=== PATIENT | female | born 1985 | race Caucasian/White ===

== ENCOUNTER 2017-01-29 13:46 | Emergency (ER) | payer OTHER ==
[2017-01-29 13:58] VITALS: RESP 18
--- NOTE | 2017-01-29 14:51 | ED ---
General Adult HPI - General Chief complaint: ENT Stated complaint: flu-like symptoms Time Seen by Provider: 01/29/17 14:31 Source: patient, RN notes reviewed Mode of arrival: ambulatory Limitations: no limitations - History of Present Illness Initial comments: This is a 31-year-old female presents with congestion. Patient states she is concerned that she may have the flu. Patient states she felt a little more warm than usual at work today and was concerned that she may be getting sick. Patient denies any measured fevers. Patient denies any headache, cough, shortness of breath, otalgia or sore throat. Patient denies any chance of being . Patient denies any recent chest pain, abdominal pain, nausea/ vomiting/diarrhea, back pain, numbness, tingling, hematuria, or visual changes , or any other complaints. - Related Data Home Medications Medication Instructions Recorded Confirmed Oseltamivir [Tamiflu] 75 mg PO DAILY 02/21/16 02/21/16 Previous Rx's Medication Instructions Recorded Amoxicillin 500 mg PO Q8H #30 capsule 02/21/16 Fluticasone Nasal Lolo [Flonase 1 - 2 spray EA NOSTRIL DAILY #1 01/29/17 Nasal Lolo] bottle Allergies Allergy/AdvReac Type Severity Reaction Status Date / Time No Known Allergies Allergy Verified 02/21/16 07:34 Review of Systems ROS Statement: Those systems with pertinent positive or pertinent negative responses have been documented in the HPI. ROS Other: All systems not noted in ROS Statement are negative. Past Medical History Additional Past Medical History / Comment(s): left eye blurred vision, lower back pain radiating down legs, tingling and pain za wrists and hands History of Any Multi-Drug Resistant Organisms: None Reported Past Surgical History: No Surgical Hx Reported Past Anesthesia/Blood Transfusion Reactions: No Reported Reaction Past Psychological History: Anxiety Smoking Status: Current every day smoker Past Alcohol Use History: Occasional Past Drug Use History: None Reported General Exam - General Exam Comments Initial Comments: General: The patient is awake and alert, in no distress, and does not appear acutely ill. Eye: Pupils are equal, round and reactive to light, extra-ocular movements are intact. No nystagmus. There is normal conjunctiva bilaterally. No signs of icterus. Ears: TMs pink and pearly with intact cone of light bilaterally. Normal external ear canals Nose: Nasal turbinates are erythematous and edematous. No discomfort to palpation of the frontal or maxillary sinuses. Mouth and throat: There are moist mucous membranes and no oral lesions. Neck: Posterior cervical chain lymphadenopathy present. No meningismus. The neck is supple, there is no tenderness or JVD. Cardiovascular: There is a regular rate and rhythm. No murmur, rub or gallop is appreciated. Respiratory: Lungs are clear to auscultation, respirations are non-labored, breath sounds are equal. No wheezes, stridor, rales, or rhonchi. Musculoskeletal: Normal ROM, no tenderness. Strength 5/5. Sensation intact. Radial pulses equal bilaterally 2+. Neurological: A&O x 3. CN II-XII intact, There are no obvious motor or sensory deficits. Coordination appears grossly intact. Speech is normal. Skin: Skin is warm and dry and no rashes or lesions are noted. Psychiatric: Cooperative, appropriate mood & affect, normal judgment. Limitations: no limitations Course Vital Signs 01/29/17 01/29/17 13:55 16:30 Temperature 97.8 F 97.9 F Pulse Rate 72 70 Respiratory 18 18 Rate Blood Pressure 104/67 102/66 O2 Sat by Pulse 96 96 Oximetry Medical Decision Making - Medical Decision Making This is a 31-year-old female who presents with congestion that started today. On physical exam patient is well-appearing and afebrile in the EC. Lungs are clear to auscultation bilaterally. Nasal turbinates are erythematous and edematous bilaterally. Influenza was checked and came back negative. I discussed sinus congestion and upper respiratory infection with the patient. I discussed [id number] decongestants along with Flonase nasal spray. I discussed the patient should drink plenty of fluids. I discussed return parameters.Discussed that patient should follow up with PCP in one to 2 days or return to the EC for any worsening symptoms or for any further concerns. Patient was receptive to this plan and patient will be discharged home. I discussed this case with attending physician Dr. Jin who agrees the plan as stated above. - Lab Data Lab Results 01/29/17 Range/Units 15:15 Influenza Type A RNA Not Detected (Not Detectd) Influenza Type B (PCR) Not Detected (Not Detectd) Disposition Clinical Impression: Nasal congestion Disposition: HOME SELF-CARE Condition: Good Instructions: Sinusitis (ED) Additional Instructions: Please use [id number] decongestants along with Flonase nasal spray to help with symptom relief. Benadryl or Claritin may also help relieve symptoms. Please use Tylenol and Motrin for any pain or fever symptoms. Please be sure to drink plenty of fluids. Please use medication as discussed. Please follow- up with family doctor in the next 2 days of symptoms have not improved. Please return to emergency room if the symptoms increase or worsen or for any other concerns. Prescriptions: Fluticasone Nasal Lolo [Flonase Nasal Lolo] 1 - 2 spray EA NOSTRIL DAILY #1 bottle Referrals: Stefany Caldera MD [Primary Care Provider] - 1-2 days Time of Disposition: 16:16
[2017-01-29 16:35] VITALS: BP 102/66; PULSE 70; TEMP 97.9
== END 2017-01-29 16:30 | disposition home or self-care (01) ==
LOC: EC 13:46
DX: R09.81 Nasal congestion (principal); F17.200 Nicotine dependence, unspecified, uncomplicated
CPT/HCPCS: 87502; 99283

== ENCOUNTER 2017-08-18 14:28 | Emergency (ER) | payer OTHER ==
[2017-08-18 14:32] VITALS: RESP 20; TEMP 98
[2017-08-18] MEDS ORDERED: diphenhydrAMINE 50 MG/ML 1 ML VIAL IVP STA (14:49)
[2017-08-18] MEDS ORDERED: methylPREDNISolone SOD SUCCI 125 MG/2 ML VIAL IV STA (14:49)
--- NOTE | 2017-08-18 15:01 | ED ---
General Adult HPI - General Chief complaint: Allergic Reaction Stated complaint: Allergic Reaction Time Seen by Provider: 08/18/17 14:40 Source: patient, RN notes reviewed, old records reviewed Mode of arrival: ambulatory Limitations: no limitations - History of Present Illness Initial comments: This is a 34-year-old female in the ER for evaluation. The patient is here for evaluation regarding rash. Patient had exposure to new drug today. No prior history of ALLERGIC reaction. No history of anaphylaxis. No shortness of breath no difficulty breathing. Severe diffuse urticarial rash itchy rash, started just prior to arrival. Patient was given injection today for back pain believes the drug was Toradol - Related Data Home Medications Medication Instructions Recorded Confirmed No Known Home Medications [No 08/18/17 08/18/17 Known Home Medications] Allergies Allergy/AdvReac Type Severity Reaction Status Date / Time tramadol Allergy Rash/Hives Verified 08/18/17 14:42 Review of Systems ROS Statement: Those systems with pertinent positive or pertinent negative responses have been documented in the HPI. ROS Other: All systems not noted in ROS Statement are negative. Past Medical History Additional Past Medical History / Comment(s): left eye blurred vision, lower back pain radiating down legs, tingling and pain za wrists and hands History of Any Multi-Drug Resistant Organisms: None Reported Past Surgical History: No Surgical Hx Reported Past Anesthesia/Blood Transfusion Reactions: No Reported Reaction Past Psychological History: Anxiety Smoking Status: Current every day smoker Past Alcohol Use History: Occasional Past Drug Use History: None Reported General Exam Limitations: no limitations General appearance: alert, in no apparent distress Head exam: Present: atraumatic, normocephalic, normal inspection Eye exam: Present: normal appearance, PERRL, EOMI. Absent: scleral icterus, conjunctival injection, periorbital swelling ENT exam: Present: normal exam, mucous membranes moist Neck exam: Present: normal inspection. Absent: tenderness, meningismus, lymphadenopathy Respiratory exam: Present: normal lung sounds bilaterally. Absent: respiratory distress, wheezes, rales, rhonchi, stridor Cardiovascular Exam: Present: regular rate, normal rhythm, tachycardia, normal heart sounds. Absent: systolic murmur, diastolic murmur, rubs, gallop, clicks GI/Abdominal exam: Present: soft, normal bowel sounds. Absent: distended, tenderness, guarding, rebound, rigid Extremities exam: Present: normal inspection, full ROM, normal capillary refill. Absent: tenderness, pedal edema, joint swelling, calf tenderness Back exam: Present: normal inspection Neurological exam: Present: alert, oriented X3, CN II-XII intact Psychiatric exam: Present: normal affect, normal mood Skin exam: Present: warm, dry, intact, normal color, urticaria. Absent: rash Course Vital Signs 08/18/17 14:28 Temperature 98 F Pulse Rate 115 H Respiratory 20 Rate Blood Pressure 122/75 O2 Sat by Pulse 97 Oximetry - Reevaluation(s) Reevaluation #1: 08/18/17 15:00 Symptoms are much resolved Medical Decision Making - Medical Decision Making 3 female ER for evaluation. Patient presents today regarding ALLERGIC reaction , patient presents with hives in relation to injection that she was seen earlier today for some issues with back pain that she has. Patient has no shortness of breath, no swelling of the throat or neck, no swelling of tongue. Patient can be discharged home with hives are much improved at this point Disposition Clinical Impression: Allergic reaction, Adverse reaction to drug Disposition: HOME SELF-CARE Instructions: Urticaria (ED) Referrals: Stefany Caldera MD [Primary Care Provider] - 1-2 days
[2017-08-18] MEDS ORDERED: EPINEPHrine 1 MG/ML 1 ML AMP SQ ONE (15:04)
[2017-08-18] MEDS ORDERED: FAMOTIDINE 20 MG/2 ML VIAL IV STA (15:15)
[2017-08-18] MEDS ORDERED: SODIUM CHLORIDE 0.9% 1,000 ML IV ONE (15:53)
[2017-08-18 16:36] VITALS: BP 107/56; PULSE 77
[2017-08-19] MEDS ORDERED: FAMOTIDINE 20 MG/2 ML VIAL IV SCH (09:00)
== END 2017-08-18 16:41 | disposition home or self-care (01) ==
LOC: EC 14:28
DX: L50.9 Urticaria, unspecified (principal); T39.8X5A Adverse effect of other nonopioid analgesics and antipyretics, not elsewhere classified, initial encounter; R00.0 Tachycardia, unspecified; F17.200 Nicotine dependence, unspecified, uncomplicated; Z88.5 Allergy status to narcotic agent
CPT/HCPCS: 99283 ×2; 96374 ×2; 96375 ×3; 96361 ×2; 96372 ×2; J0171; J1200; J2930

== ENCOUNTER 2018-01-25 09:40 | Emergency (ER) | payer OTHER ==
[2018-01-25 10:00] VITALS: TEMP 98.2
[2018-01-25] MEDS ORDERED: methylPREDNISolone SOD SUCCI 125 MG/2 ML VIAL IM ONE (11:01)
--- NOTE | 2018-01-25 11:05 | ED ---
Skin/Abscess/FB HPI - General Chief complaint: Skin/Abscess/Foreign Body Stated complaint: Allergic reaction Time Seen by Provider: 01/25/18 10:22 Source: patient, RN notes reviewed, old records reviewed Mode of arrival: ambulatory Limitations: no limitations - History of Present Illness Initial comments: This patient is a 33-year-old female presents emergency Department with a chief complaint of urticaria. She reports that she's been having this intermittently for the past 3 months. She does not know exactly what caused it. Patient states that she's had no chest range throat swelling. Denies any shortness of breath. She states that she cannot figure out exactly what causing this. She has been on steroids by her PCP. She states that she had taken those and finish them. She states that this morning it became worse than it had been in the past. She states that on her arms and legs. - Related Data Home Medications Medication Instructions Recorded Confirmed diphenhydrAMINE [Benadryl] 25 mg PO QID PRN 01/25/18 01/25/18 methylPREDNISolone [Medrol Dose See Taper PO DIRECTED 01/25/18 01/25/18 Pack] Previous Rx's Medication Instructions Recorded Famotidine [Pepcid] 20 mg PO BID #30 tablet 01/25/18 predniSONE 10 mg PO DAILY #30 tab 01/25/18 Allergies Allergy/AdvReac Type Severity Reaction Status Date / Time ketorolac [From Toradol] Allergy Rash/Hives Verified 01/25/18 10:54 tramadol Allergy Rash/Hives Verified 01/25/18 10:54 Review of Systems ROS Statement: Those systems with pertinent positive or pertinent negative responses have been documented in the HPI. ROS Other: All systems not noted in ROS Statement are negative. Past Medical History Additional Past Medical History / Comment(s): left eye blurred vision, lower back pain radiating down legs, tingling and pain za wrists and hands, hives History of Any Multi-Drug Resistant Organisms: None Reported Past Surgical History: No Surgical Hx Reported Past Anesthesia/Blood Transfusion Reactions: No Reported Reaction Past Psychological History: Anxiety Smoking Status: Current every day smoker Past Alcohol Use History: Occasional Past Drug Use History: None Reported General Exam - General Exam Comments Initial Comments: Appearing 32-year-old female. No distress. Limitations: no limitations General appearance: alert, in no apparent distress Head exam: Present: atraumatic, normocephalic, normal inspection Eye exam: Present: normal appearance, PERRL, EOMI. Absent: scleral icterus, conjunctival injection, periorbital swelling ENT exam: Present: normal exam, mucous membranes moist Neck exam: Present: normal inspection. Absent: tenderness, meningismus, lymphadenopathy Respiratory exam: Present: normal lung sounds bilaterally. Absent: respiratory distress, wheezes, rales, rhonchi, stridor Cardiovascular Exam: Present: regular rate, normal rhythm, normal heart sounds. Absent: systolic murmur, diastolic murmur, rubs, gallop, clicks GI/Abdominal exam: Present: soft, normal bowel sounds. Absent: distended, tenderness, guarding, rebound, rigid Extremities exam: Present: normal inspection, full ROM, normal capillary refill. Absent: tenderness, pedal edema, joint swelling, calf tenderness Back exam: Present: normal inspection Neurological exam: Present: alert, oriented X3, CN II-XII intact Psychiatric exam: Present: normal affect, normal mood Skin exam: Present: warm, dry, intact, normal color, rash (Diffuse urticaria over her legs arms and abdomen.) Course Vital Signs 01/25/18 09:58 Temperature 98.2 F Pulse Rate 103 H Respiratory 16 Rate Blood Pressure 118/67 O2 Sat by Pulse 100 Oximetry Medical Decision Making - Medical Decision Making 32-year-old female presents presents that she bled of urticaria. She does have 24-year-old arms legs and lower abdomen. She finished steroids from her PCP. Discussed this I will put her on ALLERGY reaction regimen with Pepcid Benadryl steroids. Discussed that she needs follow-up with an cnc machine programmer to figure out exactly what is causing her actions. Discussed return parameters. All questions answered and return parameters were discussed. Disposition Clinical Impression: Urticaria Disposition: HOME SELF-CARE Condition: Good Instructions: Urticaria (ED) Additional Instructions: and advised to rest, follow-up with legal billing specialist. Return to emergency department if any alarming signs or symptoms occur. Take the steroids and medication as prescribed. Prescriptions: Famotidine [Pepcid] 20 mg PO BID #30 tablet predniSONE 10 mg PO DAILY #30 tab Referrals: Stefany Caldera MD [Primary Care Provider] - 1-2 days Bobbi Caceres DO [REFERRING] - 1-2 days Time of Disposition: 11:02
[2018-01-25 11:23] VITALS: BP 112/67; PULSE 73; RESP 18
== END 2018-01-25 11:20 | disposition home or self-care (01) ==
LOC: EC 09:40
DX: L50.9 Urticaria, unspecified (principal); F17.200 Nicotine dependence, unspecified, uncomplicated; Z79.52 Long term (current) use of systemic steroids; Z88.6 Allergy status to analgesic agent
CPT/HCPCS: 96372; 99283

== ENCOUNTER 2018-05-21 06:33 | Emergency (ER) | payer OTHER ==
[2018-05-21 06:39] VITALS: BP 122/83; PULSE 70; RESP 16; TEMP 98.3
--- NOTE | 2018-05-21 06:52 | ED ---
Lower Extremity Injury HPI - General Chief Complaint: Extremity Injury, Lower Stated Complaint: ankle injury Time Seen by Provider: 05/21/18 06:46 Source: patient, RN notes reviewed Mode of arrival: ambulatory Limitations: no limitations - History of Present Illness Initial Comments: 32-year-old female presents emergency Department chief complaint of left ankle pain. She states that she had injury at work approximately one month ago when a steel cart rolled into her ankle she did have an abrasion and that this was causing her pain but states that she's had some on-and-off issues ever since. She states that last night at work. Worst states that it was painful to ambulate. She did try compression sock which made symptoms worsen. Patient states that it's around her lateral aspect of her ankle denies any prior fractures or injuries prior to one month ago. - Related Data Home Medications Medication Instructions Recorded Confirmed diphenhydrAMINE [Benadryl] 25 mg PO QID PRN 01/25/18 01/25/18 methylPREDNISolone [Medrol Dose See Taper PO DIRECTED 01/25/18 01/25/18 Pack] Previous Rx's Medication Instructions Recorded Famotidine [Pepcid] 20 mg PO BID #30 tablet 01/25/18 predniSONE 10 mg PO DAILY #30 tab 01/25/18 Ibuprofen [Motrin] 600 mg PO Q8HR PRN #30 tab 05/21/18 Allergies Allergy/AdvReac Type Severity Reaction Status Date / Time ketorolac [From Toradol] Allergy Rash/Hives Verified 05/21/18 06:39 tramadol Allergy Rash/Hives Verified 05/21/18 06:39 Review of Systems ROS Statement: Those systems with pertinent positive or pertinent negative responses have been documented in the HPI. ROS Other: All systems not noted in ROS Statement are negative. Past Medical History Additional Past Medical History / Comment(s): left eye blurred vision, lower back pain radiating down legs, tingling and pain za wrists and hands, hives History of Any Multi-Drug Resistant Organisms: None Reported Past Surgical History: No Surgical Hx Reported Past Anesthesia/Blood Transfusion Reactions: No Reported Reaction Past Psychological History: Anxiety Smoking Status: Current every day smoker Past Alcohol Use History: Occasional Past Drug Use History: None Reported General Exam Limitations: no limitations General appearance: alert, in no apparent distress Head exam: Present: atraumatic, normocephalic, normal inspection Respiratory exam: Present: normal lung sounds bilaterally. Absent: respiratory distress, wheezes, rales, rhonchi, stridor Cardiovascular Exam: Present: regular rate, normal rhythm, normal heart sounds. Absent: systolic murmur, diastolic murmur, rubs, gallop, clicks Extremities exam: Present: other (Left ankle there is moderate tenderness just inferior to the lateral malleolus there is minimal swelling at this aspect ankle and foot is neurovascularly intact there is no foot tenderness no medial malar tenderness no obvious deformity there is old healing wounds noted) Skin exam: Present: warm, dry, intact, normal color. Absent: rash Course Vital Signs 05/21/18 06:36 Temperature 98.3 F Pulse Rate 70 Respiratory 16 Rate Blood Pressure 122/83 O2 Sat by Pulse 100 Oximetry Medical Decision Making - Medical Decision Making 32-year-old female presented emergency from for left ankle pain. Patient did have x-rays which showed no acute fracture. Patient has pain over the ligamentous region of her left ankle patient will be given stirrup Aircast and advised to take ibuprofen as directed. Patient is left ankle sprain return parameters were discussed. Disposition Clinical Impression: Ankle sprain Disposition: HOME SELF-CARE Condition: Stable Instructions: Ankle Sprain (ED) Additional Instructions: Please return to the Emergency Department if symptoms worsen or any other concerns. Prescriptions: Ibuprofen [Motrin] 600 mg PO Q8HR PRN #30 tab PRN Reason: Pain Is patient prescribed a controlled substance at d/c from ED?: No Referrals: Stefany Caldera MD [Primary Care Provider] - 1-2 days Time of Disposition: 07:17
--- NOTE | 2018-05-21 07:18 | XR ---
EXAMINATION TYPE: XR ankle complete LT DATE OF EXAM: 05/21/2018 COMPARISON: NONE HISTORY: 32-year-old female with lateral sided pain TECHNIQUE: 3 views FINDINGS: Ankle mortise is congruent with preservation of the distal tibiofibular overlap. Talar dome is intact . Smooth delineation to the Achilles tendon. Subtalar joint is aligned. No acute fracture, subluxatio n, or dislocation seen. IMPRESSION: No acute osseous abnormality seen.
== END 2018-05-21 07:28 | disposition home or self-care (01) ==
LOC: EC 06:33
DX: S93.402A Sprain of unspecified ligament of left ankle, initial encounter (principal); Z79.51 Long term (current) use of inhaled steroids; Z88.6 Allergy status to analgesic agent; F17.200 Nicotine dependence, unspecified, uncomplicated; W23.0XXA Caught, crushed, jammed, or pinched between moving objects, initial encounter; Y92.69 Other specified industrial and construction area as the place of occurrence of the external cause; Y99.0 Civilian activity done for income or pay
CPT/HCPCS: 29515; 99283

== ENCOUNTER 2018-09-16 07:22 | Emergency (ER) | payer OTHER ==
[2018-09-16 07:29] VITALS: BP 100/61; PULSE 101; RESP 20; TEMP 98.2
[2018-09-16] MEDS ORDERED: HYDROcodone/APAP 5-325MG 1 EACH TAB PO STA (07:46)
[2018-09-16] MEDS ORDERED: ACET/COD 300 MG/30 MG STARTER PACK 6 TAB BTL PO STA (07:46)
--- NOTE | 2018-09-16 07:50 | ED ---
Extremity Problem HPI - General Chief complaint: Extremity Problem,Nontraumatic Stated complaint: thigh pain Time Seen by Provider: 09/16/18 07:33 Source: patient, RN notes reviewed Mode of arrival: ambulatory Limitations: no limitations - History of Present Illness Initial comments: 32-year-old female presents emergency Department chief complaint of left posterior thigh pain. Patient states pain has been persistent for last week or so. Patient states she saw PCP as a pain persisted and she had ultrasound and x -rays which were negative. Patient has no evidence of DVT. Patient states that the pain is better when she fell he rotates her leg which she keeps it straight and not moving. It is exacerbated by when she flexes her knee or she twists and bends. Patient states that she did apply some heat and ice states that he helped and felt better. She saw PCP who placed her on ibuprofen and Robaxin. Patient has not seen orthopedics. Patient denies any bowel bladder incontinence or retention. She does admit to some lumbar back pain at this time because she's been favoring her opposite leg. - Related Data Home Medications Medication Instructions Recorded Confirmed diphenhydrAMINE [Benadryl] 25 mg PO QID PRN 01/25/18 01/25/18 methylPREDNISolone [Medrol Dose See Taper PO DIRECTED 01/25/18 01/25/18 Pack] Previous Rx's Medication Instructions Recorded Famotidine [Pepcid] 20 mg PO BID #30 tablet 01/25/18 predniSONE 10 mg PO DAILY #30 tab 01/25/18 Ibuprofen [Motrin] 600 mg PO Q8HR PRN #30 tab 05/21/18 Allergies Allergy/AdvReac Type Severity Reaction Status Date / Time ketorolac [From Toradol] Allergy Rash/Hives Verified 09/16/18 07:29 tramadol Allergy Rash/Hives Verified 09/16/18 07:29 Review of Systems ROS Statement: Those systems with pertinent positive or pertinent negative responses have been documented in the HPI. ROS Other: All systems not noted in ROS Statement are negative. Past Medical History Additional Past Medical History / Comment(s): left eye blurred vision, lower back pain radiating down legs, tingling and pain za wrists and hands, hives History of Any Multi-Drug Resistant Organisms: None Reported Past Surgical History: No Surgical Hx Reported Past Anesthesia/Blood Transfusion Reactions: No Reported Reaction Past Psychological History: Anxiety Smoking Status: Current every day smoker Past Alcohol Use History: Occasional Past Drug Use History: None Reported General Exam Limitations: no limitations General appearance: alert, in no apparent distress Head exam: Present: atraumatic, normocephalic, normal inspection Respiratory exam: Present: normal lung sounds bilaterally. Absent: respiratory distress, wheezes, rales, rhonchi, stridor Cardiovascular Exam: Present: regular rate, normal rhythm, normal heart sounds. Absent: systolic murmur, diastolic murmur, rubs, gallop, clicks GI/Abdominal exam: Present: soft, normal bowel sounds. Absent: distended, tenderness, guarding, rebound, rigid Extremities exam: Present: other (Tenderness to the left thigh, pain with hamstring use including knee flexion, leg is neurovascularly intact with equal pedal pulses equal color equal warmth there is no swelling no ecchymosis. Patient has no localized tenderness to left hip strength is equal bilaterally) Back exam: Present: normal inspection, full ROM. Absent: tenderness, paraspinal tenderness, vertebral tenderness Skin exam: Present: warm, dry, intact, normal color. Absent: rash Course Vital Signs 09/16/18 07:26 Temperature 98.2 F Pulse Rate 101 H Respiratory 20 Rate Blood Pressure 100/61 O2 Sat by Pulse 98 Oximetry Medical Decision Making - Medical Decision Making 32-year-old female presented emergency from for left thigh pain. Patient has a hamstring strain. She has had recent ultrasound was negative for acute DVT. Patient has normal pulses no concern for arterial occlusion. Patient has no signs of infection there is no skin changes. Patient may have some underlying lumbar radiculopathy secondary to her change in gait. Patient is advised follow -up with orthopedics for possible MRI and physical therapy. Disposition Clinical Impression: Left hamstring muscle strain Disposition: HOME SELF-CARE Condition: Stable Instructions: Hamstring Injury (ED), Hamstring Exercises (ED) Additional Instructions: Please return to the Emergency Department if symptoms worsen or any other concerns. Is patient prescribed a controlled substance at d/c from ED?: No Referrals: Stefany Caldera MD [Primary Care Provider] - 1-2 days Tucker Freeman DO [Doctor of Osteopathic Medicine] - 1-2 days Time of Disposition: 07:49
== END 2018-09-16 08:04 | disposition home or self-care (01) ==
LOC: EC 07:22
DX: S76.812A Strain of other specified muscles, fascia and tendons at thigh level, left thigh, initial encounter (principal); M54.5 Low back pain; F17.200 Nicotine dependence, unspecified, uncomplicated; Z79.51 Long term (current) use of inhaled steroids; Z88.5 Allergy status to narcotic agent; Z88.6 Allergy status to analgesic agent
CPT/HCPCS: 99283

== ENCOUNTER 2019-07-18 17:41 | Emergency (ER) | payer OTHER ==
[2019-07-18 17:50] VITALS: BP 135/85; RESP 18; TEMP 98.9
--- NOTE | 2019-07-18 18:44 | ED ---
General Adult HPI - General Chief complaint: Extremity Injury, Lower Stated complaint: Leg injury Time Seen by Provider: 07/18/19 17:59 Source: patient, RN notes reviewed, old records reviewed Mode of arrival: ambulatory Limitations: no limitations - History of Present Illness Initial comments: 33-year-old female patient in ED for evaluation of fall and hip pain. Patient reports she was dragging her house, fell over a carpet on her right hip. Patient wishes pain in her right hip, right femur, tibia/fibular region. Patient ambulatory without difficulty. Denies any trauma to head or neck. Patient states that she cannot be . Denies other complaints. Systemic: Pt denies fatigue, fever/chills, rash. Pt denies weakness, night sweats, weight loss. Neuro: Pt denies headache, visual disturbances, syncope or pre-syncope. HEENT: Pt denies ocular discharge or irritation, otalgia, rhinorrhea, pharyngitis or notable lymphadenopathy. Cardiopulmonary: Pt denies chest pain, SOB, heart palpitations, dyspnea on exertion. Abdominal/GI: Pt denies abdominal pain, n/v/d. : Pt denies dysuria, burning w/ urination, frequency/urgency. Denies new onset urinary or bowel incontinence. MSK: Pt denies loss of strength or function in extremities. Neuro: Pt denies new onset weakness, paresthesias. - Related Data Home Medications Medication Instructions Recorded Confirmed No Known Home Medications 07/18/19 07/18/19 Allergies Allergy/AdvReac Type Severity Reaction Status Date / Time ketorolac [From Toradol] Allergy Rash/Hives Verified 07/18/19 18:35 tramadol Allergy Rash/Hives Verified 07/18/19 18:35 Review of Systems ROS Statement: Those systems with pertinent positive or pertinent negative responses have been documented in the HPI. ROS Other: All systems not noted in ROS Statement are negative. Past Medical History Additional Past Medical History / Comment(s): left eye blurred vision, lower back pain radiating down legs, tingling and pain za wrists and hands, hives History of Any Multi-Drug Resistant Organisms: None Reported Past Surgical History: No Surgical Hx Reported Past Anesthesia/Blood Transfusion Reactions: No Reported Reaction Past Psychological History: Anxiety Smoking Status: Current every day smoker Past Alcohol Use History: Occasional Past Drug Use History: None Reported General Exam - General Exam Comments Initial Comments: Constitutional: NAD, AOX3, Pt has pleasant affect. HEENT: NC/AT, trachea midline, neck supple, no lymphadenopathy. Posterior pharynx non erythematous, without exudates. External ears appear normal, without discharge. Mucous membranes moist. Eyes PERRLA, EOM intact. There is no scleral icterus. No pallor noted. Cardiopulmonary: RRR, no murmurs, rubs or gallops, no JVD noted. Lungs CTAB in anterior and posterior vieira. No peripheral edema. Abdominal exam: Abdomen soft and non-distended. Abdomen non-tender to palpation in all 4 quadrants. Bowel sounds active in LLQ. No hepatosplenomegaly. No ecchymosis Neuro: CN II-XII grossly intact. No nuchal rigidity. No raccon eyes, no boswell sign, no hemotympanum. No cervical spinal tenderness. MSK: Right anterior tibia/fibula mildly tender to palpation. Distal pulses intact ankle. Ambulatory without difficulty. No posterior calf tenderness bilaterally, homans sign negative bilaterally. Posterior tibialis and radial pulse +2 bilaterally. Sensation intact in upper and lower extremities. Full active ROM in upper and lower extremities, 5/5 stregnth. Limitations: no limitations Course Vital Signs 07/18/19 07/18/19 17:48 18:48 Temperature 98.9 F Pulse Rate 107 H 80 Respiratory 18 Rate Blood Pressure 135/85 O2 Sat by Pulse 95 Oximetry Medical Decision Making - Medical Decision Making 33-year-old female patient in ED for evaluation of fall and hip pain. Patient reports she was dragging her house, fell over a carpet on her right hip. Patient wishes pain in her right hip, right femur, tibia/fibular region. Patient ambulatory without difficulty. Denies any trauma to head or neck. Patient states that she cannot be . Denies other complaints. Pt VSS, afebrile. Physical exam displayed: Right anterior tibia/fibula mildly tender to palpation. Distal pulses intact and equal. Ambulatory without difficulty. Patient was recommended plain films of right lower extremity. Patient declined these that she wants to be discharged. Splint patient who did not rule out any sort of fracture without imaging. Patient was understanding. Patient discharged orthopedic consult if symptoms persist. Case discussed with Dr. Elizabeth. Disposition Clinical Impression: Fall Disposition: HOME SELF-CARE Condition: Stable Instructions (If sedation given, give patient instructions): Fall Prevention (ED) Additional Instructions: Patient to adhere to previously discussed treatment plan and will take medication(s) as directed. Patient to follow up with PCP in 1-2 days. Patient to return to ED if symptoms do not improve. Follow-up with orthopedic consult if symptoms persist. Is patient prescribed a controlled substance at d/c from ED?: No Referrals: Stefany Caldera MD [Primary Care Provider] - 1-2 days Sebastian Hubbard DO [Medical Doctor] - 1-2 days
[2019-07-18 18:49] VITALS: PULSE 80
== END 2019-07-18 18:50 | disposition home or self-care (01) ==
LOC: EC 17:41
DX: M25.551 Pain in right hip (principal); M79.651 Pain in right thigh; M79.661 Pain in right lower leg; F17.200 Nicotine dependence, unspecified, uncomplicated; Z88.5 Allergy status to narcotic agent; Z88.6 Allergy status to analgesic agent; W01.0XXA Fall on same level from slipping, tripping and stumbling without subsequent striking against object, initial encounter; Y93.89 Activity, other specified; Y92.007 Garden or yard of unspecified non-institutional (private) residence as the place of occurrence of the external cause; Z53.20 Procedure and treatment not carried out because of patient's decision for unspecified reasons
CPT/HCPCS: 99283

== ENCOUNTER 2019-10-22 08:27 | Emergency (ER) | payer OTHER ==
[2019-10-22 08:32] VITALS: BP 132/81; TEMP 99
[2019-10-22] MEDS ORDERED: DEXAMETHASONE ORAL 4 MG/ML VIAL PO ONE (08:53)
[2019-10-22] MEDS ORDERED: IBUPROFEN 600 MG TAB PO STA (08:53)
--- NOTE | 2019-10-22 08:59 | ED ---
Fever HPI - General Chief Complaint: Fever Stated Complaint: fever Time Seen by Provider: 10/22/19 08:33 Source: patient, RN notes reviewed, old records reviewed Mode of arrival: ambulatory Limitations: no limitations - History of Present Illness Initial Comments: Patient is a 33-year-old female who presents with a dry cough, fevers chills, body aches and headache. Patient reports that she was diagnosed with influenza- type syndrome yesterday at [facility]. She was started on Tamiflu. She's been on it for 24 hours. She came in today for concern for continued fever. Patient states that she no productive cough. No nausea or vomiting or abdominal pain. Patient did take some Tylenol this morning, last dose of Motrin was last night. Patient denies any history of sick contacts. - Related Data Home Medications Medication Instructions Recorded Confirmed No Known Home Medications 07/18/19 07/18/19 Allergies Allergy/AdvReac Type Severity Reaction Status Date / Time ketorolac [From Toradol] Allergy Rash/Hives Verified 10/22/19 08:31 tramadol Allergy Rash/Hives Verified 10/22/19 08:31 Review of Systems ROS Statement: Those systems with pertinent positive or pertinent negative responses have been documented in the HPI. ROS Other: All systems not noted in ROS Statement are negative. Past Medical History Additional Past Medical History / Comment(s): left eye blurred vision, lower back pain radiating down legs, tingling and pain za wrists and hands, hives History of Any Multi-Drug Resistant Organisms: None Reported Past Surgical History: No Surgical Hx Reported Past Anesthesia/Blood Transfusion Reactions: No Reported Reaction Past Psychological History: Anxiety Smoking Status: Current every day smoker Past Alcohol Use History: Occasional Past Drug Use History: None Reported General Exam - General Exam Comments Initial Comments: 33 year old female, no distress. Limitations: no limitations General appearance: alert, in no apparent distress Head exam: Present: atraumatic, normocephalic, normal inspection Eye exam: Present: normal appearance, PERRL, EOMI. Absent: scleral icterus, conjunctival injection, periorbital swelling ENT exam: Present: normal exam, mucous membranes moist, other (normal oropharynx. No sinus tenderness. ) Neck exam: Present: normal inspection. Absent: tenderness, meningismus, lymphadenopathy Respiratory exam: Present: normal lung sounds bilaterally, other (clear lung sounds, no cough. ). Absent: respiratory distress, wheezes, rales, rhonchi, stridor Cardiovascular Exam: Present: regular rate, normal rhythm, normal heart sounds. Absent: systolic murmur, diastolic murmur, rubs, gallop, clicks GI/Abdominal exam: Present: soft, normal bowel sounds. Absent: distended, tenderness, guarding, rebound, rigid Extremities exam: Present: normal inspection Back exam: Present: normal inspection Neurological exam: Present: alert, oriented X3, CN II-XII intact Psychiatric exam: Present: normal affect, normal mood Skin exam: Present: warm, dry, intact, normal color. Absent: rash Course Vital Signs 10/22/19 08:29 Temperature 99.0 F Pulse Rate 84 Respiratory 18 Rate Blood Pressure 132/81 O2 Sat by Pulse 98 Oximetry Medical Decision Making - Medical Decision Making 33-year-old female presents today with concerns for persistent fever 1 day after being diagnosed with influenza. Patient started to have symptoms on Monday. This would be day 3 of body aches and fevers intermittently. She was started on Tamiflu by [facility] yesterday. She was concerned she had a fever of 99 and 100.3 it home. I discussed the Patient needs to be altering Motrin and Tylenol the Patient suffering from a viral syndrome. I discussed that she would have a productive cough or any other complaints to be concerned for source of bacterial infection that would be concerning for further testing. She states that she does not want any x-rays or further testing at this time. I discussed with the treat the Patient with dose of Motrin, one dose of Decadron help with her symptoms of cough. Discussed the Patient needs to be taking [id number] treatment medications such as Mucinex DM. I discussed return parameters. Patient was agreeable to treatment plan will comply. Disposition Clinical Impression: Viral syndrome Disposition: HOME SELF-CARE Condition: Good Instructions (If sedation given, give patient instructions): Fever in Adults (ED) Additional Instructions: Alternating between Motrin and Tylenol, take decongestion medication and continue tamiflu. Follow-up with your primary care physician. Return to emergency department if any alarming signs or symptoms occur. Is patient prescribed a controlled substance at d/c from ED?: No Referrals: Stefany Caldera MD [Primary Care Provider] - 1-2 days Time of Disposition: 08:58
[2019-10-22 09:09] VITALS: PULSE 85; RESP 16
== END 2019-10-22 09:10 | disposition home or self-care (01) ==
LOC: EC 08:27
DX: B34.9 Viral infection, unspecified (principal); F17.200 Nicotine dependence, unspecified, uncomplicated; Z88.5 Allergy status to narcotic agent; Z88.6 Allergy status to analgesic agent
CPT/HCPCS: 99283; J8540

== ENCOUNTER → 2020-04-09 | Outpatient (CLI) | payer OTHER ==
--- NOTE | 2020-04-09 20:42 | US ---
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 TECHNIQUE: Multiple sonographic images of the thyroid gland are obtained. FINDINGS: GLAND SIZE: Right Lobe: 4.8 x 1.6 x 2.3 cm Overall Parenchyma: heterogenous Left Lobe: 5.3 x 1.3 x 1.9 cm Overall Parenchyma: heterogeneous Isthmus Thickness: 0.4 cm NODULES RIGHT: # of nodules measured on right: 0 LEFT: # of nodules measured on left: 0 ISTHMUS: # of nodules measured in the isthmus: 0 Bilateral neck scanned, no evidence of lymphadenopathy. IMPRESSION: Borderline to mild thyromegaly with heterogeneous glandular parenchyma. Findings could represent diff use thyroiditis or goiter.
== END | disposition home or self-care (01) ==
LOC: RADUSWWP 16:19
PROVIDERS: ATTEND Family Medicine
DX: E01.0 Iodine-deficiency related diffuse (endemic) goiter (principal); R79.89 Other specified abnormal findings of blood chemistry
CPT/HCPCS: 76536

== ENCOUNTER → 2020-07-14 | Outpatient (CLI) | payer OTHER ==
--- NOTE | 2020-07-14 09:53 | XR ---
EXAMINATION TYPE: XR lumbar spine 2 or 3V DATE OF EXAM: 07/14/2020 CLINICAL HISTORY: S39.012A. Hurt back at work lifting. Pain in lower back. TECHNIQUE: Frontal and lateral views of the lumbar spine COMPARISON: Lumbar radiograph 07/19/2016 FINDINGS: There are 5 lumbar type vertebral bodies identified. The lumbar spine shows satisfactory alignment without evidence of acute fracture or dislocation. Vertebral body heights and disk space he ights are within normal limits. The overlying soft tissue appears unremarkable. IMPRESSION: No acute fracture or dislocation is seen in the lumbar spine.
== END | disposition home or self-care (01) ==
LOC: RADXRMAIN 09:06
PROVIDERS: ATTEND Emergency Medicine
DX: S39.012A Strain of muscle, fascia and tendon of lower back, initial encounter (principal)
CPT/HCPCS: 72100

== ENCOUNTER 2020-07-28 08:13 | Emergency (ER) | payer OTHER ==
[2020-07-28 08:17] VITALS: BP 114/74; PULSE 85; RESP 16; TEMP 97.9
[2020-07-28] MEDS ORDERED: ORPHENADRINE 30 MG/ML 2 ML VIAL IM STA (08:38)
[2020-07-28] MEDS ORDERED: ACET/COD 300 MG/30 MG STARTER PACK 6 TAB BTL PO STA (08:38)
[2020-07-28] MEDS ORDERED: methylPREDNISolone SOD SUCCI 125 MG/2 ML VIAL IM ONE (08:38)
--- NOTE | 2020-07-28 08:46 | ED ---
Back Pain HPI - General Chief Complaint: Back Pain/Injury Stated Complaint: sciatica pain Time Seen by Provider: 07/28/20 08:21 Source: patient, RN notes reviewed, old records reviewed Limitations: no limitations - History of Present Illness Initial Comments: Patient is a 34 year old female who presents to the ER today for evaluation with complaints of sciatic pain shooting down the left leg. She said history of sciatic pain prior. She reports that she has been having this pain off and on for the past week. Pain is reproducible with straight leg and in certain movements. She denies any recent fall or trauma. She does report that she is scheduled to have an MRI. Denies any saddle anesthesias. She denies any abdominal pain fever chills or weight loss. - Related Data Previous Rx's Medication Instructions Recorded Cyclobenzaprine [Flexeril] 10 mg PO TID #12 tab 07/28/20 dexAMETHasone [Dexamethasone] 0.75 mg PO DAILY #12 tab 07/28/20 Allergies Allergy/AdvReac Type Severity Reaction Status Date / Time ketorolac [From Toradol] Allergy Rash/Hives Verified 07/28/20 08:17 tramadol Allergy Rash/Hives Verified 07/28/20 08:17 Review of Systems ROS Statement: Those systems with pertinent positive or pertinent negative responses have been documented in the HPI. ROS Other: All systems not noted in ROS Statement are negative. Past Medical History Additional Past Medical History / Comment(s): left eye blurred vision, lower back pain radiating down legs, tingling and pain za wrists and hands, hives History of Any Multi-Drug Resistant Organisms: None Reported Past Surgical History: No Surgical Hx Reported Past Anesthesia/Blood Transfusion Reactions: No Reported Reaction Past Psychological History: Anxiety Smoking Status: Current every day smoker Past Alcohol Use History: Occasional Past Drug Use History: None Reported General Exam - General Exam Comments Initial Comments: 34 rolled female. Alert and oriented. No significant distress. Limitations: no limitations General appearance: alert, in no apparent distress Head exam: Present: atraumatic, normocephalic, normal inspection Eye exam: Present: normal appearance, PERRL, EOMI. Absent: scleral icterus, conjunctival injection, periorbital swelling ENT exam: Present: normal exam, mucous membranes moist Neck exam: Present: normal inspection Respiratory exam: Present: normal lung sounds bilaterally. Absent: respiratory distress, wheezes, rales, rhonchi, stridor Cardiovascular Exam: Present: regular rate, normal rhythm, normal heart sounds. Absent: systolic murmur, diastolic murmur, rubs, gallop, clicks GI/Abdominal exam: Present: soft, normal bowel sounds. Absent: distended, tenderness, guarding, rebound, rigid Extremities exam: Present: normal inspection, full ROM, normal capillary refill. Absent: tenderness, pedal edema, joint swelling, calf tenderness Back exam: Present: normal inspection, tenderness (Lower back tenderness over the left sciatic notch. No rash. Positive straight leg test on the left. Normal pulses of dorsalis pedis and posterior tibial are 2+ bilaterally.) Neurological exam: Present: alert, oriented X3, CN II-XII intact Psychiatric exam: Present: normal affect, normal mood Skin exam: Present: warm, dry, intact, normal color. Absent: rash Course Vital Signs 07/28/20 08:14 Temperature 97.9 F Pulse Rate 85 Respiratory 16 Rate Blood Pressure 114/74 O2 Sat by Pulse 98 Oximetry Medical Decision Making - Medical Decision Making 34-year-old female presents emergency with one week of sciatic distribution of pain. Reproducible with movement. Patient has history of sciatica before. She states she does have upcoming appointment for MRIs. Patient has had no fall or trauma and denies vertigo like symptoms or saddle anesthesia. Patient's been taking [id number] medication for pain and sent here because the pain was not seemed to be managed. At this time she does have some tenderness of sciatic notch. No rashes. Patient is given IM slight Medrol Norflex. Has listed ALLERGY to Toradol tramadol. We'll give the Patient started pack for Tylenol 3. Advised Patient to follow-up with PCP Disposition Clinical Impression: Sciatica of left side Disposition: HOME SELF-CARE Condition: Good Instructions (If sedation given, give patient instructions): Acute Low Back Pain (ED), Sciatica (ED) Additional Instructions: Please use medication as discussed. Please follow up with family doctor if symptoms have not improved over the next two days. Please return to the emergency room if your symptoms increase or worsen or for any other concerns. Prescriptions: dexAMETHasone [Dexamethasone] 0.75 mg PO DAILY #12 tab Cyclobenzaprine [Flexeril] 10 mg PO TID #12 tab Is patient prescribed a controlled substance at d/c from ED?: No Referrals: Stefany Caldera MD [Primary Care Provider] - 1-2 days Time of Disposition: 08:44
== END 2020-07-28 08:58 | disposition home or self-care (01) ==
LOC: EC 08:13
DX: M54.32 Sciatica, left side (principal); F17.200 Nicotine dependence, unspecified, uncomplicated; Z88.6 Allergy status to analgesic agent
CPT/HCPCS: 96372 ×2; 99283; J2360; J2930

== ENCOUNTER 2020-08-18 17:18 | Observation (INO) | payer OTHER ==
[2020-08-18] MEDS ORDERED: HYDROmorphone 0.5 MG/0.5 ML SYRINGE IM STA (17:45)
[2020-08-18] MEDS ORDERED: HYDROmorphone 0.5 MG/0.5 ML SYRINGE IVP STA ×2 (17:52→18:40)
--- NOTE | 2020-08-18 17:55 | ED ---
General Adult HPI - General Chief complaint: Back Pain/Injury Stated complaint: back/leg pain Time Seen by Provider: 08/18/20 17:38 Source: patient, RN notes reviewed Mode of arrival: ambulatory Limitations: no limitations - History of Present Illness Initial comments: 34-year-old female presents to the emergency room for left leg pain. Patient reports this has been ongoing for 1 month however worsened significantly today. Patient reports that she has had this before about 3 years ago. Patient states it starts in her low back radiates down her left buttock into her left leg. Patient states she has been seeing primary care for this and was supposed to have an MRI ordered however insurance would not approve this. She saw her primary care provider today who recommended she come into the emergency room and requested CT and admission. Patient denies numbness or tingling in the groin and buttock. Denies weakness of the legs. Denies bladder or bowel changes. Patient denies fevers or chills. Patient denies any chance of whatsoe shaan.Patient has no other complaints at this time including shortness of breath, chest pain, abdominal pain, nausea or vomiting, headache, or visual changes. - Related Data Previous Rx's Medication Instructions Recorded Cyclobenzaprine [Flexeril] 10 mg PO TID #12 tab 07/28/20 dexAMETHasone [Dexamethasone] 0.75 mg PO DAILY #12 tab 07/28/20 Allergies Allergy/AdvReac Type Severity Reaction Status Date / Time ketorolac [From Toradol] Allergy Rash/Hives Verified 07/28/20 08:17 tramadol Allergy Rash/Hives Verified 07/28/20 08:17 Review of Systems ROS Statement: Those systems with pertinent positive or pertinent negative responses have been documented in the HPI. ROS Other: All systems not noted in ROS Statement are negative. Past Medical History Additional Past Medical History / Comment(s): left eye blurred vision, lower back pain radiating down legs, tingling and pain za wrists and hands, hives History of Any Multi-Drug Resistant Organisms: None Reported Past Surgical History: No Surgical Hx Reported Past Anesthesia/Blood Transfusion Reactions: No Reported Reaction Past Psychological History: Anxiety Smoking Status: Current every day smoker Past Alcohol Use History: Occasional Past Drug Use History: None Reported General Exam Limitations: no limitations General appearance: alert, in no apparent distress Head exam: Present: atraumatic, normocephalic, normal inspection Eye exam: Present: normal appearance, PERRL, EOMI. Absent: scleral icterus, conjunctival injection, periorbital swelling ENT exam: Present: normal exam, mucous membranes moist Neck exam: Present: normal inspection. Absent: tenderness, meningismus, lymphadenopathy Respiratory exam: Present: normal lung sounds bilaterally. Absent: respiratory distress, wheezes, rales, rhonchi, stridor Cardiovascular Exam: Present: regular rate, normal rhythm, normal heart sounds. Absent: systolic murmur, diastolic murmur, rubs, gallop, clicks GI/Abdominal exam: Present: soft, normal bowel sounds. Absent: distended, tenderness, guarding, rebound, rigid Extremities exam: Present: normal capillary refill (Capillary refill is less than 2 seconds, DP pulse 2+ left lower extremity.), other (Sensation intact left lower extremity, strength 5 out of 5. Positive straight leg raise test). Absent: full ROM (Patient has limited range of motion with hip flexion and extension secondary to pain.), tenderness, pedal edema, joint swelling, calf tenderness Course Vital Signs 08/18/20 08/18/20 17:39 19:03 Temperature 98.0 F 97.8 F Pulse Rate 100 86 Respiratory 18 14 Rate Blood Pressure 131/80 119/84 O2 Sat by Pulse 96 96 Oximetry Medical Decision Making - Medical Decision Making Patient presented for back pain radiating down the left leg. No weakness. Neurovascular status intact. No red flag symptoms. However pain is worse today which is inhibiting patient ambulating. Patient's primary care called and spoke with Dr. Edward requesting admission with consult to Dr. Munoz. CBC CMP were obtained. CBC does show leukocytosis which is likely reactive in nature. CT lumbar spine showed mild to moderate L5 to S1 spondylosis. There is an incidental sclerotic focus in the right iliac bone most consistent with benign bone island in the absence of known malignancy. At this time patient will be admitted for further management. Dr. Montano requesting pain management consultation. - Lab Data Result diagrams: 08/18/20 17:54 08/18/20 17:54 Lab Results 08/18/20 08/18/20 Range/Units 17:54 17:54 WBC 12.4 H (3.8-10.6) k/uL RBC 4.32 (3.80-5.40) m/uL Hgb 14.2 (11.4-16.0) gm/dL Hct 43.6 (34.0-46.0) % MCV 100.9 H (80.0-100.0) fL MCH 32.9 (25.0-35.0) pg MCHC 32.6 (31.0-37.0) g/dL RDW 12.3 (11.5-15.5) % Plt Count 368 (150-450) k/uL Neutrophils % 74 % Lymphocytes % 18 % Monocytes % 6 % Eosinophils % 1 % Basophils % 1 % Neutrophils # 9.1 H (1.3-7.7) k/uL Lymphocytes # 2.2 (1.0-4.8) k/uL Monocytes # 0.7 (0-1.0) k/uL Eosinophils # 0.1 (0-0.7) k/uL Basophils # 0.1 (0-0.2) k/uL Sodium 136 L (137-145) mmol/L Potassium 4.4 (3.5-5.1) mmol/L Chloride 106 (98-107) mmol/L Carbon Dioxide 24 (22-30) mmol/L Anion Gap 6 mmol/L BUN 16 (7-17) mg/dL Creatinine 0.66 (0.52-1.04) mg/dL Est GFR (CKD-EPI)AfAm >90 (>60 ml/min/1.73 sqM) Est GFR (CKD-EPI)NonAf >90 (>60 ml/min/1.73 sqM) Glucose 98 (74-99) mg/dL Calcium 9.4 (8.4-10.2) mg/dL Total Bilirubin 0.3 (0.2-1.3) mg/dL AST 22 (14-36) U/L ALT 15 (4-34) U/L Alkaline Phosphatase 44 (38-126) U/L Total Protein 6.9 (6.3-8.2) g/dL Albumin 4.2 (3.5-5.0) g/dL Disposition Clinical Impression: Mechanical back pain, Sciatica of left side Disposition: ADMITTED IP TO THIS [facility] Condition: Fair Is patient prescribed a controlled substance at d/c from ED?: No Referrals: Stefany Caldera MD [Primary Care Provider] - 1-2 days Time of Disposition: 18:58
[2020-08-18 18:11] LABS: Basophils # (A) 0.1 k/uL (0-0.2); Basophils % (A) 1 %; Eosinophils # (A) 0.1 k/uL (0-0.7); Eosinophils % (A) 1 %; HCT 43.6 % (34.0-46.0); HGB 14.2 gm/dL (11.4-16.0); Lymphocytes # (A) 2.2 k/uL (1.0-4.8); Lymphocytes % (A) 18 %; MCH 32.9 pg (25.0-35.0); MCHC 32.6 g/dL (31.0-37.0); MCV 100.9 fL (80.0-100.0); Mean Platelet Volume 6.4; Monocytes # (A) 0.7 k/uL (0-1.0); Monocytes % (A) 6 %; Neutrophils # (A) 9.1 k/uL (1.3-7.7); Neutrophils % (A) 74 %; Platelet Count 368 k/uL (150-450); RBC 4.32 m/uL (3.80-5.40); RDW 12.3 % (11.5-15.5); WBC 12.4 k/uL (3.8-10.6)
[2020-08-18 18:23] LABS: ALT 15 U/L (4-34); AST 22 U/L (14-36); African American GFR (CKD) >90 (>60 ml/min/1.73 sqM); Albumin 4.2 g/dL (3.5-5.0); Alkaline Phosphatase 44 U/L (38-126); Anion Gap 6 mmol/L; Blood Urea Nitrogen 16 mg/dL (7-17); Calcium 9.4 mg/dL (8.4-10.2); Carbon Dioxide 24 mmol/L (22-30); Chloride 106 mmol/L (98-107); Glucose 98 mg/dL (74-99); Non-African American GFR(CKD) >90 (>60 ml/min/1.73 sqM); Potassium 4.4 mmol/L (3.5-5.1); Sodium 136 mmol/L (137-145); Total Bilirubin 0.3 mg/dL (0.2-1.3); Total Protein 6.9 g/dL (6.3-8.2)
--- NOTE | 2020-08-18 18:34 | CT ---
EXAMINATION TYPE: CT lumbar spine wo con DATE OF EXAM: 08/18/2020 6:19 PM COMPARISON: Radiographs 07/14/2020. HISTORY: Back and leg pain CT DLP: 651.7 mGycm Automated exposure control for dose reduction was used. Unenhanced CT of the lumbar spine was performed. Bone and soft tissue window settings are submitted as well as coronal and sagittal reconstructions. There is no acute fracture or subluxation. The vertebral body heights are grossly maintained. There i s mild to moderate disc height narrowing at L5-S1. No significant spondylolisthesis. The visualized p aravertebral soft tissues are unremarkable. There is incidental 0.8 cm sclerotic focus in the right iliac bone articular surface, most consistent with benign bone island in the absence of known malignancy. IMPRESSION: No acute abnormality. Mild to moderate L5-S1 spondylosis.
[2020-08-18] MEDS ORDERED: NALOXONE 0.4 MG/ML 1 ML VIAL IV PRN (18:58)
[2020-08-18] MEDS ORDERED: ONDANSETRON 4 MG/2 ML VIAL IVP PRN (18:58)
[2020-08-18] MEDS: SODIUM CHLORIDE 0.9% 1,000 ML IV SCH (20:47)
[2020-08-18] MEDS: HYDROmorphone 0.5 MG/0.5 ML SYRINGE IVP PRN (22:23)
[2020-08-19] MEDS: CYCLOBENZAPRINE 10 MG TAB PO PRN ×2 (00:34→23:02)
[2020-08-19] MEDS: HYDROcodone/APAP 5-325MG 1 EACH TAB PO PRN ×2 (02:15→12:07)
[2020-08-19] MEDS: HYDROmorphone 0.5 MG/0.5 ML SYRINGE IVP PRN (03:30)
[2020-08-19] MEDS: LEVOTHYROXINE 25 MCG TAB PO SCH (05:40)
[2020-08-19] MEDS: SODIUM CHLORIDE 0.9% 1,000 ML IV SCH ×2 (05:41→13:11)
[2020-08-19] MEDS ORDERED: CYCLOBENZAPRINE 10 MG TAB PO STA (07:57)
--- NOTE | 2020-08-19 07:58 | P.HPIM ---
History of Present Illness This is a pleasant 34 years old female with past medical history of back pain with sciatica radiating to left leg , she had such pain about 3 years ago which lasted for about a month. This time also she had similar pain that is been going on for about one month. Yesterday the pain become more severe and decided to come to the hospital, she rates the pain yesterday stating out of 10 and today is slightly better at 9/10. Patient denies weakness or numbness and she can bend her knee with no problem. No saddle anesthesia. No urine or bowel incontinence Patient also on prednisone 20 mg twice a day, she says that will not help her usually. Patient was taking Motrin 200 mg at home with no help Patient smokes half pack per day, she's counseled and she agrees to quit. She declines nicotine patch. Occasional drinking alcohol and no illicit drugs Labs showing mild leukocytosis of 12.4 K, rest of labs including CBC, BMP, liver enzymes were unremarkable CT of the lumbar spines: No acute abnormality mild to moderate L5-S1 s pondylolisthesis, which is also seen for an old MRI from 2013. In the emergency room patient was provided with pain medication with Dilaudid consult spine surgeon Dr. Munoz MAPS was checked and patient has no narcotic prescription recently Review of Systems CONSTITUTIONAL: No fever, no malaise, no fatigue. HEENT: No recent visual problems or hearing problems. Denied any sore throat. CARDIOVASCULAR: No orthopnea, PND, no palpitations, no syncope. PULMONARY: No shortness of breath, no cough, no hemoptysis. GASTROINTESTINAL: No diarrhea, no nausea, no vomiting, no abdominal pain. Normoactive bowel sounds. NEUROLOGICAL: No headaches, no weakness, no numbness. HEMATOLOGICAL: Denies any bleeding or petechiae. GENITOURINARY: Denies any burning micturition, frequency, or urgency. MUSCULOSKELETAL/RHEUMATOLOGICAL: Denies any joint pain, swelling, or any muscle pain. ENDOCRINE: Denies any polyuria or polydipsia. Past Medical History Additional Past Medical History / Comment(s): left eye blurred vision, lower back pain radiating down legs, tingling and pain za wrists and hands, hives History of Any Multi-Drug Resistant Organisms: None Reported Past Surgical History: No Surgical Hx Reported Past Anesthesia/Blood Transfusion Reactions: No Reported Reaction Additional Past Anesthesia/Blood Transfusion Reaction / Comment(s): Patient has never had a transfusion or anesthesia. Past Psychological History: Anxiety Smoking Status: Current every day smoker Past Alcohol Use History: Occasional Past Drug Use History: None Reported Medications and Allergies Home Medications Medication Instructions Recorded Confirmed Type [id number]-Iurx-Fmcc [id number] 2 tab PO ONCE 08/18/20 08/18/20 History [Excedrin] Cyclobenzaprine [Flexeril] 10 mg PO HS PRN 08/18/20 08/18/20 History Ibuprofen [Motrin Ib] 400 mg PO ONCE PRN 08/18/20 08/18/20 History Levothyroxine Sodium [Synthroid] 25 mcg PO DAILY 08/18/20 08/18/20 History PARoxetine HCL [Paxil] 20 mg PO DAILY 08/18/20 08/18/20 History Percocet (Unknown Strength) 1 tab PO ONCE PRN 08/18/20 08/18/20 History predniSONE [Deltasone] 20 mg PO BID 08/18/20 08/18/20 History Allergies Allergy/AdvReac Type Severity Reaction Status Date / Time ketorolac [From Toradol] Allergy Rash/Hives Verified 08/18/20 19:46 tramadol Allergy Rash/Hives Verified 08/18/20 19:46 Physical Exam Vitals: Vital Signs Temp Pulse Pulse Resp BP BP BP 08/19/20 07:22 98.3 F 79 14 103/69 08/19/20 02:12 97.9 F 70 104/67 08/19/20 00:57 93 16 08/18/20 21:20 98.2 F 93 16 134/77 08/18/20 19:03 97.8 F 86 14 119/84 08/18/20 17:39 98.0 F 100 18 131/80 Pulse Ox 08/19/20 07:22 95 08/19/20 02:12 94 L 08/19/20 00:57 08/18/20 21:20 95 08/18/20 19:03 96 08/18/20 17:39 96 Intake and Output 08/18/20 08/19/20 08/19/20 22:59 06:59 14:59 Intake Total 480 Balance 480 Intake: Oral 480 Other: # Voids 1 1 Weight 74.843 kg GENERAL: The patient is alert and oriented x3, not in any acute distress. Well developed, well nourished. HEENT: Pupils are round and equally reacting to light. EOMI. No scleral icterus. No conjunctival pallor. Normocephalic, atraumatic. No pharyngeal erythema. No thyromegaly. CARDIOVASCULAR: S1 and S2 present. No murmurs, rubs, or gallops. PULMONARY: Chest is clear to auscultation, no wheezing or crackles. ABDOMEN: Soft, nontender, nondistended, normoactive bowel sounds. No palpable organomegaly. MUSCULOSKELETAL: No joint swelling or deformity. EXTREMITIES: No cyanosis, clubbing, or pedal edema. NEUROLOGICAL: Gross neurological examination did not reveal any focal deficits. SKIN: No rashes. No petechiae Results CBC & Chem 7: 08/18/20 17:54 08/18/20 17:54 Labs: Abnormal Lab Results - Last 24 Hours (Table) 08/18/20 08/18/20 Range/Units 17:54 17:54 WBC 12.4 H (3.8-10.6) k/uL MCV 100.9 H (80.0-100.0) fL Neutrophils # 9.1 H (1.3-7.7) k/uL Sodium 136 L (137-145) mmol/L Thrombosis Risk Factor Assmnt - Choose All That Apply Any of the Below Risk Factors Present?: No Other Risk Factors: No Thrombosis Risk Factor Assessment Level: Very Low Risk Assessment and Plan Assessment: Acute on chronic back pain Degenerative spine disease Nicotine dependence Overweight Plan: this is a pleasant 34 years old female who presents because of acute on chronic back pain. CT of the lumbar spine showed degenerative disease at L5-S1. Continue with pain management and follow-up recommendation by orthopedic surgery. We'll stop her IV Dilaudid to start her on Motrin 600 mg every 8 hours. Lidocaine patch. Labs and medication were reviewed.. Continue same treatment. Continue with symptomatic treatment. Resume home medication. Monitor lytes and vitals. DVT and GI prophylaxis. Further recommendations depends on the clinical course of the patient DVT prophylaxis: Subcutaneous heparin GI Prophylaxis: Pepcid PT: Pending Prognosis is guarded
[2020-08-19] MEDS: FAMOTIDINE 20 MG TAB PO SCH (08:13)
[2020-08-19] MEDS: PARoxetine 20 MG TAB PO SCH (08:13)
[2020-08-19] MEDS: predniSONE 20 MG TAB PO SCH ×2 (08:14→21:58)
[2020-08-19] MEDS: LIDOCAINE 5% PATCH TOPICAL SCH (08:17)
[2020-08-19] MEDS: IBUPROFEN 600 MG TAB PO SCH ×3 (08:19→21:58)
[2020-08-19 08:33] LABS: Basophils # (A) 0.1 k/uL (0-0.2); Basophils % (A) 1 %; Eosinophils # (A) 0.2 k/uL (0-0.7); Eosinophils % (A) 2 %; HCT 41.9 % (34.0-46.0); HGB 13.5 gm/dL (11.4-16.0); Lymphocytes # (A) 3.5 k/uL (1.0-4.8); Lymphocytes % (A) 40 %; MCH 33.4 pg (25.0-35.0); MCHC 32.2 g/dL (31.0-37.0); MCV 103.8 fL (80.0-100.0); Macrocytosis Slight; Mean Platelet Volume 6.6; Monocytes # (A) 0.4 k/uL (0-1.0); Monocytes % (A) 5 %; Neutrophils # (A) 4.4 k/uL (1.3-7.7); Neutrophils % (A) 51 %; Platelet Count 307 k/uL (150-450); RBC 4.04 m/uL (3.80-5.40); RDW 12.4 % (11.5-15.5); WBC 8.7 k/uL (3.8-10.6)
[2020-08-19 08:47] LABS: African American GFR (CKD) >90 (>60 ml/min/1.73 sqM); Anion Gap 5 mmol/L; Blood Urea Nitrogen 11 mg/dL (7-17); Calcium 8.8 mg/dL (8.4-10.2); Carbon Dioxide 27 mmol/L (22-30); Chloride 103 mmol/L (98-107); Glucose 132 mg/dL (74-99); Non-African American GFR(CKD) >90 (>60 ml/min/1.73 sqM); Potassium 3.7 mmol/L (3.5-5.1); Sodium 135 mmol/L (137-145)
--- NOTE | 2020-08-19 10:41 | P.CNOR ---
History of Present Illness - [facility] Consult date: 08/19/20 Requesting physician: Hayden Saul Consult reason: low back pain, other (Left lower extremity radiculopathy) History of present illness: Patient is a very pleasant 34-year-old female who is seen and examined at the bedside for further evaluation for intractable low back pain and left lower extremity radiculopathy. She states her pain has been ongoing over the past month but had a severe exacerbation yesterday. She states nothing helps improve her pain. She has difficulty with sitting, standing, lying, and walking. She states she has pain in the region of the lumbar spine, into the left buttock, down the left posterior and posterior lateral thigh to the knee. She has difficulty with regular activities of daily living giving her symptoms. She had been following with her primary care provider in the outpatient setting. They had attempted to obtain an MRI of the lumbar spine but this was denied as the patient had not worked in physical therapy. After further discussion with her primary care provider, she was recommended to come to the hospital yesterday for further evaluation. Patient states during her admission to the hospital she does not feel she's had significant improvement of her symptoms overall. She has been receiving IV Dilaudid and oral [place] for pain control. Consultation has been placed with pain management as well. Patient has also been receiving Flexeril 10 mg and prednisone 20 mg twice a day for control of her symptoms. Patient denies any difficulty with voiding. She denies any saddle anesthesia. She is urinating without difficulty. She denies any specific injury. CT lumbar spine was performed in the emergency department. Past Medical History Additional Past Medical History / Comment(s): left eye blurred vision, lower back pain radiating down legs, tingling and pain za wrists and hands, hives History of Any Multi-Drug Resistant Organisms: None Reported Past Surgical History: No Surgical Hx Reported Past Anesthesia/Blood Transfusion Reactions: No Reported Reaction Additional Past Anesthesia/Blood Transfusion Reaction / Comm: Patient has never had a transfusion or anesthesia. Past Psychological History: Anxiety Smoking Status: Current every day smoker Past Alcohol Use History: Occasional Past Drug Use History: None Reported Medications and Allergies Home Medications Medication Instructions Recorded Confirmed Type [id number]-Gopz-[id number] 2 tab PO ONCE 08/18/20 08/18/20 History [Excedrin] Cyclobenzaprine [Flexeril] 10 mg PO HS PRN 08/18/20 08/18/20 History Ibuprofen [Motrin Ib] 400 mg PO ONCE PRN 08/18/20 08/18/20 History Levothyroxine Sodium [Synthroid] 25 mcg PO DAILY 08/18/20 08/18/20 History PARoxetine HCL [Paxil] 20 mg PO DAILY 08/18/20 08/18/20 History Percocet (Unknown Strength) 1 tab PO ONCE PRN 08/18/20 08/18/20 History predniSONE [Deltasone] 20 mg PO BID 08/18/20 08/18/20 History Allergies Allergy/AdvReac Type Severity Reaction Status Date / Time ketorolac [From Toradol] Allergy Rash/Hives Verified 08/18/20 19:46 tramadol Allergy Rash/Hives Verified 08/18/20 19:46 Physical Examination Physical exam: Patient is awake, alert, and oriented 3 Vital signs stable Good chest excursion with deep inspiration and expiration Examination of lumbar spine reveals skin is intact with no abrasions, lacerations, or bruises; no erythema, purulence or signs of infection No specific pain with palpation along the midline lumbar spine Evidence of a small tattoo over the left iliac crest/upper buttock Evidence of multiple tattoos the upper extremities lower extremity Dorsiflexion, plantarflexion, and extensor hallucis longus positive sustained bilaterally Lower extremity strength 5/5 bilaterally Patellar reflex 2+ bilaterally and Achilles reflexes 2+ bilaterally No lower extremity hyperreflexia bilaterally Positive straight leg test left lower extremity Positive Lasegue's test of lower extremity No signs or symptoms of DVT; no calf pain No pain with internal and external rotation of the hips bilaterally Neurovascularly intact Results Pertinent studies: CT lumbar spine taken on 08/18/2020: Overall alignment appears adequately maintained; no evidence of vertebral body compression fracture deformity; L5-S1 degenerative disc disease; there may be evidence of herniated nucleus pulposus at L4-5 and L5-S1 which would be better visualized on MRI imaging - Labs Labs: Abnormal Lab Results - Last 24 Hours (Table) 08/18/20 08/18/20 08/19/20 Range/Units 17:54 17:54 08:09 WBC 12.4 H (3.8-10.6) k/uL MCV 100.9 H 103.8 H (80.0-100.0) fL Neutrophils # 9.1 H (1.3-7.7) k/uL Sodium 136 L (137-145) mmol/L Glucose (74-99) mg/dL 08/19/20 Range/Units 08:09 WBC (3.8-10.6) k/uL MCV (80.0-100.0) fL Neutrophils # (1.3-7.7) k/uL Sodium 135 L (137-145) mmol/L Glucose 132 H (74-99) mg/dL H & H 08/18/20 08/19/20 Range/Units 17:54 08:09 Hgb 14.2 13.5 (11.4-16.0) gm/dL Hct 43.6 41.9 (34.0-46.0) % Result Diagrams: 08/19/20 08:09 08/19/20 08:09 Assessment and Plan Assessment: Assessment: Intractable low back pain Left lower extremity radiculopathy L5-S1 degenerative disc disease L4-5 and/or L5-S1 possible herniated nucleus pulposus (1) Intractable low back pain Current Visit: Yes Status: Acute Code(s): M54.5 - LOW BACK PAIN SNOMED Code(s): 33733015216229566 (2) Lumbar back pain with radiculopathy affecting left lower extremity Current Visit: Yes Status: Acute Code(s): M54.16 - RADICULOPATHY, LUMBAR REGION SNOMED Code(s): 914432930 (3) DDD (degenerative disc disease), lumbosacral Current Visit: Yes Status: Acute Code(s): M51.37 - OTHER INTERVERTEBRAL DISC DEGENERATION, LUMBOSACRAL REGION SNOMED Code(s): 69919061 Plan: Plan: 1. After physical examination of the patient, further discussion with the patient, reviewing of imaging, and further discussion with Dr. Helio Munoz, will currently plan to obtain an MRI of the lumbar spine for further evaluation. Patient has been experiencing ongoing low back pain and left lower extremity radiculopathy over the past month which has not been improving with conservative treatment and has been significantly exacerbated since yesterday. She has difficulty with regular activities of daily living giving her pain. Lumbar CT imaging that shows some changes with possible herniated nucleus pulposus at L4-5 and/or L5-S1. This would be better visualized on lumbar MRI imaging. We'll plan to order a lumbar MRI with and without contrast for further evaluation. Following the completion of this MRI, we'll plan to follow up with the patient to discuss the MRI results and further treatment options. 2. Continue pain control with medicine as prescribed including Dilaudid, [place], cyclobenzaprine, and prednisone as prescribed by medicine 3. Patient currently waiting for consultation with pain management Time with Patient: Greater than 30 (Including obtaining history, physical examination, reviewing of imaging, and dictation.)
[2020-08-19] MEDS: MORPHINE SULFATE 4 MG/ML SYRINGE IVP PRN ×4 (13:05→23:02)
--- NOTE | 2020-08-19 13:23 | MR ---
EXAMINATION TYPE: MR lumbar spine wo con DATE OF EXAM: 08/19/2020 COMPARISON: CT lumbar spine 08/18/2020, plain film 07/12/2020 HISTORY: intractable LBP, LLE radiculopathy, L5-S1 TECHNIQUE: Multiplanar, multisequence images of the lumbar spine were acquired. L1-L2: Minimal posterior disc bulge causes only slight anterior mass effect on the thecal sac. No sig nificant spinal stenosis or foraminal encroachment. L2-L3: Posterior disc bulge causes anterior mass effect on the thecal sac. No significant spinal sten osis or foraminal encroachment. L3-L4: Posterior disc bulge causes mild anterior mass effect on the thecal sac. No significant forami nal encroachment or spinal stenosis. L4-L5: Posterior broad-based disc bulge causes anterior mass effect on the thecal sac. Circumferentia l extension endplate disc complex encroaches somewhat on the foramina. No significant spinal stenosis . There is some facet arthropathy change present. L5-S1: There is a posterior broad-based disc herniation present causing some anterior mass effect on the thecal sac. There is displacement of the left S1 nerve root posteriorly, likely mass effect on th e right S1 nerve root, mild spinal stenosis. Some facet arthropathy changes present. Circumferential extension endplate disc complex encroaches on the foramina greater on the left than on the right. Lumbar segments are intact. No paraspinal masses are identified. Conus medullaris has a normal appe arance. Lumbar vertebral bodies show preserved height and alignment. There is loss of disc height and signal greatest at L5-S1 with associated vacuum phenomenon, to lesser extent L4-5, loss of disc sign al at L2-3. IMPRESSION: Disc herniations greatest at L5-S1 as described, correlate for radiculopathy
--- NOTE | 2020-08-19 15:30 | P.PAINCN ---
History of Present Illness - Reason for Consult Consult date: 08/19/20 - History of Present Illness This is a 34 years old female, with acute onset of severe low back pain with radiation to the left lower extremity, she reports that her symptoms started 1 month ago, she denies any initiating event, no history of trauma or heavy lifting, and she reported that yesterday morning the pain intensity increased significantly ,, the intensity of the pain interferes with her ability to sit stand or walk, and she was admitted to [facility] because of her symptoms, she reported that the pain is continual severe with intensity of the pain is 10 over 10, she denies any fever or night sweats. And there is no change in bowel movement or urination patient was started on pain medication IV Dilaudid and Walsh orally and she continued to have severe pain Past Medical History Additional Past Medical History / Comment(s): left eye blurred vision, lower back pain radiating down legs, tingling and pain za wrists and hands, hives History of Any Multi-Drug Resistant Organisms: None Reported Past Surgical History: No Surgical Hx Reported Past Anesthesia/Blood Transfusion Reactions: No Reported Reaction Additional Past Anesthesia/Blood Transfusion Reaction / Comm: Patient has never had a transfusion or anesthesia. Past Psychological History: Anxiety Smoking Status: Current every day smoker Past Alcohol Use History: Occasional Past Drug Use History: None Reported Medications and Allergies Home Medications Medication Instructions Recorded Confirmed Type [id number]-Bhpq-[id number] 2 tab PO ONCE 08/18/20 08/18/20 History [Excedrin] Cyclobenzaprine [Flexeril] 10 mg PO HS PRN 08/18/20 08/18/20 History Ibuprofen [Motrin Ib] 400 mg PO ONCE PRN 08/18/20 08/18/20 History Levothyroxine Sodium [Synthroid] 25 mcg PO DAILY 08/18/20 08/18/20 History PARoxetine HCL [Paxil] 20 mg PO DAILY 08/18/20 08/18/20 History Percocet (Unknown Strength) 1 tab PO ONCE PRN 08/18/20 08/18/20 History predniSONE [Deltasone] 20 mg PO BID 08/18/20 08/18/20 History Allergies Allergy/AdvReac Type Severity Reaction Status Date / Time ketorolac [From Toradol] Allergy Rash/Hives Verified 08/18/20 19:46 tramadol Allergy Rash/Hives Verified 08/18/20 19:46 Physical Exam Vitals: Vital Signs Temp Pulse Pulse Resp BP BP BP 08/19/20 13:48 97.7 F 83 14 105/73 08/19/20 07:22 98.3 F 79 14 103/69 08/19/20 02:12 97.9 F 70 104/67 08/19/20 00:57 93 16 08/18/20 21:20 98.2 F 93 16 134/77 08/18/20 19:03 97.8 F 86 14 119/84 08/18/20 17:39 98.0 F 100 18 131/80 Pulse Ox 08/19/20 13:48 94 L 08/19/20 07:22 95 08/19/20 02:12 94 L 08/19/20 00:57 08/18/20 21:20 95 08/18/20 19:03 96 08/18/20 17:39 96 Intake and Output 08/19/20 08/19/20 08/19/20 06:59 14:59 22:59 Other: # Voids 1 1 Physical Examinations : -Constitutiona : Cooperative , not in acute distress . -HEENT : nech : supple , no Lymphadenopathy , normal thyroid size . : eyes : no ptosis , no icterus, no photophobia . . - neurologic : Cranial nerve II to XII intact , no focal neurological deffecit . -psychatric : alert , oriented X 3 , appropriate affect , intact judgment and insight . -Lymphatic : no Lymphadenopathy . - musculoskeltal : Lumber spine moter stegnth lower extremities ,thigh and legs 5/5 Right side , 5/5 Left side deep tendon reflexes : normal Knee Jerk , normal ankle Jerk lumber facet Loading Test =positive Right , positive Left Range of motion of the lumbar spine Flexion 30 degrees, extension 10 degrees strait leg raising test = positive at 30 degree on the left side, most of at 60 on the right side Fabere test= positive Right , and positive LT . tenderness over the Sacroiliac joint on the Right , and Left sides Results CBC & Chem 7: 08/19/20 08:09 08/19/20 08:09 Labs: Abnormal Lab Results - Last 24 Hours (Table) 08/18/20 08/18/20 08/19/20 Range/Units 17:54 17:54 08:09 WBC 12.4 H (3.8-10.6) k/uL MCV 100.9 H 103.8 H (80.0-100.0) fL Neutrophils # 9.1 H (1.3-7.7) k/uL Sodium 136 L (137-145) mmol/L Glucose (74-99) mg/dL 08/19/20 Range/Units 08:09 WBC (3.8-10.6) k/uL MCV (80.0-100.0) fL Neutrophils # (1.3-7.7) k/uL Sodium 135 L (137-145) mmol/L Glucose 132 H (74-99) mg/dL Comments: MRI of the lumbar spine= herniated dis at L5-S1 , bulging disc at L4 5 Assessment and Plan Plan: Assessment and plan=1-lumbar radiculopathy 2-lumbar herniated disc disease. 3-lumbar degenerative disc disease. Patient could benefit from lumbar epidural steroid injection at L5-S1 left paramedian approach, will be done tomorrow in the morning Time with Patient: Greater than 30 PQRS Measure Charge Sheet PQRS Narrative: Smoking Status Current every day smoker Do You Want the Pneumonia No Vaccine AT THIS TIME? Blood Pressure [Right Arm] 103/69 Blood Pressure [Left Arm] 105/73 Blood Pressure 119/84 Pain Intensity [Lower Back] 0 Pain Intensity 0 Pain Scale Used Numeric (1 - 10) Scale Used Numeric (1 - 10) Home Medications: Ambulatory Orders [id number]-Pzyr-Jvvy [id number] [Excedrin] 2 tab PO ONCE 08/18/20 Cyclobenzaprine [Flexeril] 10 mg PO HS PRN 08/18/20 Ibuprofen [Motrin Ib] 400 mg PO ONCE PRN 08/18/20 Levothyroxine Sodium [Synthroid] 25 mcg PO DAILY 08/18/20 PARoxetine HCL [Paxil] 20 mg PO DAILY 08/18/20 Percocet (Unknown Strength) 1 tab PO ONCE PRN 08/18/20 predniSONE [Deltasone] 20 mg PO BID 08/18/20
[2020-08-19] MEDS: HEPARIN SODIUM,PORCINE 5,000 UNIT/ML 1 ML VIAL SQ SCH (21:58)
[2020-08-20] MEDS: SODIUM CHLORIDE 0.9% 1,000 ML IV SCH ×2 (04:12→15:33)
[2020-08-20] MEDS: LEVOTHYROXINE 25 MCG TAB PO SCH (06:17)
[2020-08-20] MEDS: HEPARIN SODIUM,PORCINE 5,000 UNIT/ML 1 ML VIAL SQ SCH (08:14)
[2020-08-20 08:25] VITALS: RESP 18
[2020-08-20] MEDS: predniSONE 20 MG TAB PO SCH (08:25)
[2020-08-20] MEDS: IBUPROFEN 600 MG TAB PO SCH (08:25)
[2020-08-20] MEDS: FAMOTIDINE 20 MG TAB PO SCH (08:25)
[2020-08-20] MEDS: LIDOCAINE 5% PATCH TOPICAL SCH (08:25)
[2020-08-20] MEDS: HYDROcodone/APAP 5-325MG 1 EACH TAB PO PRN (08:25)
[2020-08-20] MEDS: PARoxetine 20 MG TAB PO SCH (08:26)
--- NOTE | 2020-08-20 11:05 | P.PN ---
Progress Note - Text Progress Note Date: 08/20/20 Patient is seen and examined at bedside. She continues to have severe pain at her lower back and down her left lower extremity. She denies any changes in bowel bladder function. She feels she has great difficulty moving her leg due to pain. She is afebrile stable vital signs At her left lower extremity she has positive [place] sign, positive straight leg raise, she has sustained dorsal flexion plantarflexion and EHL but she has significant breakaway strength. Her thigh and calf are soft nontender. She has no saddle paresthesias. MRI of her lumbar spine as well as computed tomography scan is reviewed. There is a significant disc herniation with extruded fragment at L5-S1 causing severe left foraminal stenosis. There is some disc protrusion L4 5 as well. Assessment and plan L5-S1 disc herniation with extruded fragment on the left Left lower extremity radiculopathy Incapacitating pain and left lower extremity Degenerative disc disease L4 5 L5-S1 I think that the patient's symptoms stem directly from her new disc herniation at L5-S1 on the left. This correlates very well with her lower extremity symptoms. She is not having good relief despite oral and IV medications and I think she is a good candidate for interventional pain management. She is scheduled for epidural steroid injection today and I think that a transforaminal left epidural steroid injection could offer her the best benefit at this point. If she is able to have some comfort with the injection that I think it is good for to try to get discharged home with close follow-up. The patient would be a candidate for laminectomy discectomy at L5-S1 if she is not having relief with interventional pain management. Hopefully she'll be able to discharge home after her up dural steroid injection and can follow-up with us in the next week. I discussed this with her and answered questions best my ability and she is agreeable.
[2020-08-20 14:00] VITALS: PULSE 76; TEMP 99
[2020-08-20] MEDS ORDERED: LACTATED RINGERS 1,000 ML IV ONE ×2 (14:14)
[2020-08-20] MEDS ORDERED: fentaNYL (PF) 50 MCG/ML 2 ML AMP ONE (14:47)
[2020-08-20] MEDS ORDERED: MIDAZOLAM 2 MG/2 ML VIAL ONE (14:47)
[2020-08-20] MEDS ORDERED: IOPAMIDOL M200 10 ML VIAL ONE (14:47)
[2020-08-20] MEDS ORDERED: methylPREDNISolone ACETATE 80 MG/ML 1 ML VIAL ONE (14:47)
--- NOTE | 2020-08-20 15:00 | P.PCN ---
Date of Procedure: 08/20/20 Procedure(s) Performed: PREOPERATIVE DIAGNOSIS: 1- Lumbar Degenerative Disc Diseases 2-Lumbar radiculopathy 3-lumbar herniated disc disease POSTOPERATIVE DIAGNOSIS: Same as preop diagnosis. PROCEDURE 1. Lumbar epidural steroid injection under fluoroscopic guidance at the L5-S1 level. (Fluoroscopy imaging was available in radiology department) 2. Lumbar epidurogram. ANESTHESIA: Local with 1% lidocaine 3 ml and , moderate sedation with intravenous Versed 2 mg ,and fentanyle 100 Mcg EBL: Minimal PROCEDURE INDICATION: The patient with low back pain and radiculitis symptoms unresponsive to conservative treatment. Fluoroscopy was used to optimize visualization of the needle placement and to maximize safety. PROCEDURE DESCRIPTION / TECHNIQUE: The patient was seen and identified in the preoperative area. Risks, benefits, complications including but not limited to infections ,bleeding ,allergic reaction to the medications ,nerve damage and not complete pain releife , and alternatives were discussed with the patient. The patient agreed to proceed with the procedure and signed the consent. IV was started, and vital signs were stable. Patient was taken to the OR and time out was completed. The patient was placed in the prone position on procedure table and a pillow was placed under the abdomen to reduce lumbar lordosis. The lumbosacral area was prepped and draped in the usual sterile fashion.ere closely monitored during the procedure. Conscious sedation was used during the procedure to decrease patients anxiety. Vital signs was monitered during the entire procedure. Using anterior-posterior fluoroscopy, the L5-S1 interlaminar space was id entified and the skin over this site was marked and then infiltrated with 1% lidocaine subcutaneously. Subsequently, a 20-gauge Tuohy epidural needle was inserted and advanced toward the epidural space using the ``Loss of resistance technique and guided by AP and lateral fluoroscopy. The correct needle position in the epidural space was verified with the injection of 2 mL of the water soluble contrast dye Isovue 200 contrast and observing an excellent epidurogram with the epidural spread of the dye, after negative aspiration for blood and CSF and in the absence of paresthesias. Again after negative aspiration, a 6 ml mixture containing 80 mg of Depo-medrol , and 2 ml of preservative free Normal Saline, and 2 ml of preservative free lidocaine 1% solution was injected and a washout of epidurogram was seen. Needle was withdrawn intact, skin was cleansed, and bandages were applied. COMPLICATIONS: None DISPOSITION / PLANS: The patient was placed in a supine position and transferred to the recovery area in a stable condition for observation. There was no evidence of lower extremity motor or sensory deficit after the procedure. Patient was discharged from the recovery room after meeting discharge criteria. Home discharge instructions were given to the patient by the staff. The patient was reexamined prior to discharge. The patient will schedule a follow up in the clinic in 2-4 weeks.
[2020-08-20 15:23] VITALS: BP 132/67
--- NOTE | 2020-08-20 18:32 | FL ---
EXAMINATION TYPE: FL guided pain mgmt statistic DATE OF EXAM: 08/20/2020 FLUOROSCOPY Fluoroscopy time of 1 seconds was used during lumbar epidural steroid injection. 1 image/s document/ s the procedure.
== END 2020-08-20 16:30 | disposition home or self-care (01) ==
LOC: EC 17:18 → 1SOBS 20:24
PROVIDERS: ADMIT Hospitalist; ATTEND Hospitalist
DX: M51.26 Other intervertebral disc displacement, lumbar region (principal); M51.36 Other intervertebral disc degeneration, lumbar region; M51.17 Intervertebral disc disorders with radiculopathy, lumbosacral region; M47.9 Spondylosis, unspecified; G89.29 Other chronic pain; E66.3 Overweight; M48.00 Spinal stenosis, site unspecified; F41.9 Anxiety disorder, unspecified; F17.200 Nicotine dependence, unspecified, uncomplicated; Z79.890 Hormone replacement therapy; Z79.899 Other long term (current) drug therapy
CPT/HCPCS: 62323; 96372; 96375 ×2; 96376 ×3; 96374; 99284; 36415; 97161; 80053; 80048; 85025 ×2; 84703; 72131; 72148; G0378 ×3; J2250; J2270; J1040; J1644; J2405; J3010; J7512 ×2; J1170 ×2; Q9966

== ENCOUNTER → 2020-09-07 | Outpatient (CLI) | payer OTHER ==
[2020-09-07 07:45] LABS: Basophils # (A) 0.1 k/uL (0-0.2); Basophils % (A) 1 %; Eosinophils # (A) 0.3 k/uL (0-0.7); Eosinophils % (A) 4 %; HCT 42.9 % (34.0-46.0); HGB 14.1 gm/dL (11.4-16.0); Lymphocytes % (A) 25 %; MCH 32.9 pg (25.0-35.0); MCHC 32.9 g/dL (31.0-37.0); MCV 100.2 fL (80.0-100.0); Mean Platelet Volume 6.5; Monocytes # (A) 0.5 k/uL (0-1.0); Monocytes % (A) 6 %; Neutrophils # (A) 5.1 k/uL (1.3-7.7); Neutrophils % (A) 63 %; Platelet Count 293 k/uL (150-450); RBC 4.28 m/uL (3.80-5.40); RDW 12.6 % (11.5-15.5); WBC 8.1 k/uL (3.8-10.6)
[2020-09-07 07:54] LABS: INR 0.9 (<1.2); Partial Thromboplastin Time 23.3 sec (22.0-30.0); Prothrombin Time 9.5 sec (9.0-12.0)
[2020-09-07 07:55] LABS: Appearance,Urine Cloudy (Clear); Bilirubin,Urine Negative (Negative); Blood,Urine Negative (Negative); Color,Urine Yellow; Glucose,Urine (UA) Negative (Negative); Ketones,Urine Negative (Negative); Leukocyte Esterase,Urine Trace (Negative); Mucus,Urine Occasional /hpf; Nitrite,Urine Negative (Negative); Protein,Urine Negative (Negative); Squamous Epithelial Cell,Urine 9 /hpf (0-4); Urobilinogen,Urine <2.0 mg/dL (<2.0); WBC,Urine 2 /hpf (0-5)
--- NOTE | 2020-09-07 07:58 | XR ---
EXAMINATION TYPE: XR chest 2V DATE OF EXAM: 09/07/2020 COMPARISON: Chest x-ray February 19, 2016 HISTORY: Preop spine surgery. TECHNIQUE: Frontal and lateral views of the chest are obtained. FINDINGS: There is no focal air space opacity, pleural effusion, or pneumothorax seen. The cardiac silhouette size is upper limits of normal on current study. Pectus excavatum deformity redemonstrate d. IMPRESSION: No acute cardiopulmonary process. No significant change from prior.
[2020-09-07 07:59] LABS: African American GFR (CKD) >90 (>60 ml/min/1.73 sqM); Anion Gap 4 mmol/L; Blood Urea Nitrogen 14 mg/dL (7-17); Calcium 9.1 mg/dL (8.4-10.2); Carbon Dioxide 28 mmol/L (22-30); Chloride 106 mmol/L (98-107); Glucose 89 mg/dL (74-99); Non-African American GFR(CKD) >90 (>60 ml/min/1.73 sqM); Potassium 4.4 mmol/L (3.5-5.1); Sodium 138 mmol/L (137-145)
== END | disposition home or self-care (01) ==
LOC: LABPAT 07:06
PROVIDERS: ATTEND Orthopaedic Surgery Orthopaedic Surgery of the Spine
DX: Z01.818 Encounter for other preprocedural examination (principal); M51.17 Intervertebral disc disorders with radiculopathy, lumbosacral region
CPT/HCPCS: 36415; 71046; 80048; 81001; 85025; 85610; 85730; 93005

== ENCOUNTER → 2020-09-11 | Outpatient (CLI) | payer OTHER | END | disposition home or self-care (01) | LOC: LABWHC1 12:08 | PROVIDERS: ATTEND Orthopaedic Surgery Orthopaedic Surgery of the Spine | DX: Z01.818 Encounter for other preprocedural examination (principal) | CPT/HCPCS: 36415; 86850; 86900; 86901 ==

== ENCOUNTER 2020-09-15 18:36 | Inpatient (IN) | payer OTHER ==
[2020-09-15] MEDS ORDERED: HYDROmorphone 1 MG/ML 1 ML SYRINGE IM STA (19:27)
--- NOTE | 2020-09-15 19:30 | ED ---
Back Pain HPI - General Chief Complaint: Back Pain/Injury Stated Complaint: back pain Time Seen by Provider: 09/15/20 18:59 Source: patient Limitations: no limitations - History of Present Illness Initial Comments: 34 year old female with history of herniated disc presenting to the emergency department the chief complaint of back pain. Patient states his chronic back pain and she was scheduled to have back surgery tomorrow with Dr. Munoz. However, the surgeon contractor coronavirus and now the surgery has been rescheduled 3 weeks later. She states the pain is in the lumbosacral region is radiating distally along the left lower extremity to the popliteal region. She does report occasional tingling sensation in that leg. Denies any saddle anesthesia, urinary retention with overflow incontinence or bowel incontinence. States that she has taken her [place], gabapentin, Flexeril and prednisone with no improvement in symptoms. She denies abdominal pain chest pain or shortness of breath. - Related Data Home Medications Medication Instructions Recorded Confirmed Cyclobenzaprine [Flexeril] 10 mg PO HS 08/18/20 09/15/20 Levothyroxine Sodium [Synthroid] 25 mcg PO DAILY 08/18/20 09/15/20 PARoxetine HCL [Paxil] 20 mg PO DAILY 08/18/20 09/15/20 Gabapentin [Neurontin] 300 mg PO TID 09/15/20 09/15/20 HYDROcodone/APAP 5-325MG [[place] 1 tab PO Q8H PRN 09/15/20 09/15/20 5-325] predniSONE See Taper PO DAILY 09/15/20 09/15/20 Allergies Allergy/AdvReac Type Severity Reaction Status Date / Time ketorolac [From Toradol] Allergy Rash/Hives Verified 09/15/20 19:30 tramadol Allergy Rash/Hives Verified 09/15/20 19:30 Review of Systems ROS Statement: Those systems with pertinent positive or pertinent negative responses have been documented in the HPI. ROS Other: All systems not noted in ROS Statement are negative. Past Medical History Additional Past Medical History / Comment(s): left eye blurred vision, lower back pain radiating down legs, tingling and pain za wrists and hands, hives History of Any Multi-Drug Resistant Organisms: None Reported Past Surgical History: No Surgical Hx Reported Past Anesthesia/Blood Transfusion Reactions: No Reported Reaction Additional Past Anesthesia/Blood Transfusion Reaction / Comment(s): Patient has never had a transfusion or anesthesia. Past Psychological History: Anxiety Smoking Status: Current every day smoker Past Alcohol Use History: Occasional Past Drug Use History: None Reported General Exam Limitations: no limitations General appearance: alert, in no apparent distress Head exam: Present: atraumatic, normocephalic, normal inspection Eye exam: Present: normal appearance, PERRL, EOMI Pupils: Present: normal accommodation ENT exam: Present: normal exam, normal oropharynx, mucous membranes moist, TM's normal bilaterally, normal external ear exam Neck exam: Present: normal inspection, full ROM. Absent: tenderness Respiratory exam: Present: normal lung sounds bilaterally. Absent: respiratory distress, wheezes, rales Cardiovascular Exam: Present: regular rate, normal rhythm, normal heart sounds. Absent: systolic murmur, diastolic murmur GI/Abdominal exam: Present: soft. Absent: distended, tenderness, guarding Extremities exam: Present: normal inspection, full ROM, normal capillary refill. Absent: tenderness, pedal edema, joint swelling, calf tenderness Back exam: Present: normal inspection, full ROM, tenderness, paraspinal tenderness, vertebral tenderness (Lumbosacral). Absent: CVA tenderness (R), CVA tenderness (L), muscle spasm Neurological exam: Present: alert, oriented X3 Psychiatric exam: Present: normal affect, normal mood Skin exam: Present: warm, dry, intact, normal color Course Vital Signs 09/15/20 09/15/20 18:42 21:38 Temperature 98.1 F Pulse Rate 112 H 96 Respiratory 16 18 Rate Blood Pressure 115/76 117/87 O2 Sat by Pulse 96 100 Oximetry - Reevaluation(s) Reevaluation #1: 09/15/20 22:23 Medical records reviewed Medical Decision Making - Medical Decision Making 34-year-old female with a herniated disc presenting to the emergency department with chief complaint of back pain. On physical examination, she does have lumbar sacral tenderness to palpation. Left-sided radiculopathy. Patient was given 2 mg of Dilaudid initially. No improvement in symptoms whatsoever. Patient was given an additional 4 mg of morphine. A reevaluation patient reports still improvement of symptoms. Patient will be admitted for intractable back pain. CBC CMP pending. No signs or symptoms of cauda equina. Case discussed with Admitting is Dr Carpenter Ortho consult Disposition Clinical Impression: Intractable low back pain Disposition: ADMITTED IP TO THIS HOSP Condition: Good Instructions (If sedation given, give patient instructions): Acute Low Back Pain (ED) Additional Instructions: Patient will be admitted Is patient prescribed a controlled substance at d/c from ED?: No Referrals: Stefany Caldera MD [Primary Care Provider] - 1-2 days Time of Disposition: 22:25
[2020-09-15] MEDS ORDERED: MORPHINE SULFATE 4 MG/ML SYRINGE IM STA (20:27)
[2020-09-15] MEDS ORDERED: MORPHINE SULFATE 4 MG/ML SYRINGE IV PRN (22:21)
[2020-09-15] MEDS ORDERED: ACETAMINOPHEN TAB 325 MG TAB PO PRN (22:21)
[2020-09-15] MEDS ORDERED: NALOXONE 0.4 MG/ML 1 ML VIAL IV PRN (22:21)
[2020-09-15] MEDS ORDERED: IBUPROFEN 400 MG TAB PO PRN (22:21)
[2020-09-15] MEDS: SODIUM CHLORIDE 0.9% 1,000 ML IV SCH (22:52)
[2020-09-15 22:55] LABS: Basophils # (A) 0.1 k/uL (0-0.2); Basophils % (A) 1 %; Eosinophils # (A) 0.4 k/uL (0-0.7); Eosinophils % (A) 3 %; HCT 42.8 % (34.0-46.0); HGB 13.8 gm/dL (11.4-16.0); Lymphocytes # (A) 3.5 k/uL (1.0-4.8); Lymphocytes % (A) 27 %; MCH 32.2 pg (25.0-35.0); MCHC 32.2 g/dL (31.0-37.0); Mean Platelet Volume 6.2; Monocytes # (A) 0.8 k/uL (0-1.0); Monocytes % (A) 6 %; Neutrophils # (A) 8.1 k/uL (1.3-7.7); Neutrophils % (A) 62 %; Platelet Count 375 k/uL (150-450); RBC 4.29 m/uL (3.80-5.40)
[2020-09-15 23:03] LABS: ALT 9 U/L (4-34); AST 14 U/L (14-36); African American GFR (CKD) >90 (>60 ml/min/1.73 sqM); Albumin 3.9 g/dL (3.5-5.0); Alkaline Phosphatase 44 U/L (38-126); Anion Gap 5 mmol/L; Blood Urea Nitrogen 18 mg/dL (7-17); Calcium 9.1 mg/dL (8.4-10.2); Carbon Dioxide 31 mmol/L (22-30); Chloride 101 mmol/L (98-107); Glucose 115 mg/dL (74-99); Non-African American GFR(CKD) >90 (>60 ml/min/1.73 sqM); Potassium 4.2 mmol/L (3.5-5.1); Sodium 137 mmol/L (137-145); Total Bilirubin 0.2 mg/dL (0.2-1.3); Total Protein 6.7 g/dL (6.3-8.2)
[2020-09-15] MEDS: ONDANSETRON 4 MG/2 ML VIAL IVP PRN (23:52)
[2020-09-15] MEDS: HYDROmorphone 1 MG/ML 1 ML SYRINGE IVP PRN (23:55)
[2020-09-15] MEDS: LORazepam 2 MG/ML INJ IV PRN (23:57)
[2020-09-16] MEDS: HYDROmorphone 1 MG/ML 1 ML SYRINGE IVP PRN ×6 (05:16→21:39)
[2020-09-16] MEDS: LORazepam 2 MG/ML INJ IV PRN ×2 (06:06→21:41)
[2020-09-16] MEDS ORDERED: HYDROcodone/APAP 5-325MG 1 EACH TAB PO PRN (09:50)
[2020-09-16] MEDS ORDERED: GABAPENTIN 300 MG CAP PO SCH (10:00)
[2020-09-16] MEDS: SODIUM CHLORIDE 0.9% 1,000 ML IV SCH (11:03)
--- NOTE | 2020-09-16 11:52 | P.HPIM ---
History of Present Illness Patient pleasant 34-year-old the female with history of 4 chronic low back pain and herniated disc came in with uncontrolled pain patient is supposed to get a back surgery by Dr. Munoz today, the surgeon is not available at this time patient is unable to get surgery. Patient is comparing of severe 9/10 pain debilitating unable to do anything at home with the radiculopathy predominantly in the left leg and weakness which started last night in the left leg. Patient is already on steroids at this time. Patient denied any saddle anesthesia follow bladder incontinence. During her last hospital physician patient did get the epidural steroid injection. Pain management will be consulted again. Patient does have leukocytosis without any evidence of sepsis. Review of Systems REVIEW OF SYSTEMS: CONSTITUTIONAL: No fever, no malaise, no fatigue. HEENT: No recent visual problems or hearing problems. Denied any sore throat. CARDIOVASCULAR: No chest pain, orthopnea, PND, no palpitations, no syncope. PULMONARY: No shortness of breath, no cough, no hemoptysis. GASTROINTESTINAL: No diarrhea, no nausea, no vomiting, no abdominal pain. NEUROLOGICAL: No headaches, no weakness, no numbness. HEMATOLOGICAL: Denies any bleeding or petechiae. GENITOURINARY: Denies any burning micturition, frequency, or urgency. MUSCULOSKELETAL/RHEUMATOLOGICAL: As mentioned in HPI ENDOCRINE: Denies any polyuria or polydipsia. The rest of the 14-point review of systems is negative. Past Medical History Additional Past Medical History / Comment(s): herniated disc with chronic lower back pain radiating down legs, history of tingling and pain za wrists and hands (resolved), hives History of Any Multi-Drug Resistant Organisms: None Reported Past Surgical History: No Surgical Hx Reported Past Anesthesia/Blood Transfusion Reactions: No Reported Reaction Additional Past Anesthesia/Blood Transfusion Reaction / Comment(s): Patient has never had a transfusion or anesthesia. Past Psychological History: Anxiety Smoking Status: Current every day smoker Past Alcohol Use History: Occasional Past Drug Use History: None Reported - Past Family History Father Family Medical History: Asthma, Hypertension Additional Family Medical History / Comment(s): back issues with sciatica and herniated discs Mother History Unknown: Yes Brother(s) Additional Family Medical History / Comment(s): crohns, borderline diabetic Sister(s) Family Medical History: No Reported History Son(s) Family Medical History: No Reported History Medications and Allergies Home Medications Medication Instructions Recorded Confirmed Type Cyclobenzaprine [Flexeril] 10 mg PO HS 08/18/20 09/15/20 History Levothyroxine Sodium [Synthroid] 25 mcg PO DAILY 08/18/20 09/15/20 History PARoxetine HCL [Paxil] 20 mg PO DAILY 08/18/20 09/15/20 History Gabapentin [Neurontin] 300 mg PO TID 09/15/20 09/15/20 History HYDROcodone/APAP 5-325MG [[place] 1 tab PO Q8H PRN 09/15/20 09/15/20 History 5-325] predniSONE See Taper PO DAILY 09/15/20 09/15/20 History Allergies Allergy/AdvReac Type Severity Reaction Status Date / Time ketorolac [From Toradol] Allergy Rash/Hives Verified 09/15/20 23:09 tramadol Allergy Rash/Hives Verified 09/15/20 23:09 Physical Exam Vitals: Vital Signs Temp Pulse Pulse Resp BP BP Pulse Ox 09/16/20 07:56 97.8 F 89 14 100/63 95 09/16/20 00:11 97.6 F 86 18 105/72 95 09/15/20 21:38 96 18 117/87 100 09/15/20 18:42 98.1 F 112 H 16 115/76 96 Intake and Output 09/15/20 09/16/20 09/16/20 22:59 06:59 14:59 Other: Voiding Method Toilet Weight 73.936 kg PHYSICAL EXAMINATION: GENERAL: The patient is alert and oriented x3, not in any acute distress. Well developed, well nourished. HEENT: Pupils are round and equally reacting to light. EOMI. No scleral icterus. No conjunctival pallor. Normocephalic, atraumatic. No pharyngeal erythema. No thyromegaly. CARDIOVASCULAR: S1 and S2 present. No murmurs, rubs, or gallops. PULMONARY: Chest is clear to auscultation, no wheezing or crackles. ABDOMEN: Soft, nontender, nondistended, normoactive bowel sounds. No palpable organomegaly. MUSCULOSKELETAL: No joint swelling or deformity. EXTREMITIES: No cyanosis, clubbing, or pedal edema. NEUROLOGICAL: Unable to assess his weakness in the left leg she is complaining about because of severe pain with slightest movement of the left leg. Patient has positive straight leg raising test. Although she is able to raise her left leg little bit SKIN: No rashes. Results CBC & Chem 7: 09/15/20 22:46 09/15/20 22:46 Labs: Abnormal Lab Results - Last 24 Hours (Table) 09/15/20 09/15/20 Range/Units 22:46 22:46 WBC 13.0 H (3.8-10.6) k/uL Neutrophils # 8.1 H (1.3-7.7) k/uL Carbon Dioxide 31 H (22-30) mmol/L BUN 18 H (7-17) mg/dL Glucose 115 H (74-99) mg/dL Thrombosis Risk Factor Assmnt - Choose All That Apply Any of the Below Risk Factors Present?: Yes Each Factor Represents 1 point: Obesity (BMI >25) Other Risk Factors: No Other congenital or acquired thrombophilia - If yes, enter type in comment: No Thrombosis Risk Factor Assessment Total Risk Factor Score: 1 Thrombosis Risk Factor Assessment Level: Low Risk Assessment and Plan Plan: Chronic low back pain with possible disc prolapse: Pain management was consulted orthopedic surgery evaluated the patient as well. -Complaints of weakness in the left leg: Neurology was consulted patient is already on steroids which will be continued -Leukocytosis secondary to steroids she is taking at home -Nicotine use: Counseling was provided -DVT prophylaxis was Lovenox GI prophylaxis with Pepcid
[2020-09-16] MEDS: ACETAMINOPHEN TAB 500 MG TAB PO SCH (13:09)
[2020-09-16] MEDS: oxyCODONE-APAP 5-325MG 1 EACH TAB PO PRN (13:10)
[2020-09-16] MEDS ORDERED: PARoxetine 20 MG TAB PO STA (13:46)
--- NOTE | 2020-09-16 13:52 | P.CNNES ---
History of Present Illness Consult date: 09/16/20 Requesting physician: Gladis Montano Reason for Consult: Left leg weakness History of Present Illness: Patient is a 34-year-old female, who has history of low back pain for long time, states symptoms got worse in June 2020. The pain involves the low back region in the middle, then extends to the left buttock, back of the leg to back of the left calf to the ankle. Sometimes she gets a kneeling in the bottom of the left foot. Denies any constant area of numbness in the left leg. Denies any symptoms in the other 3 extremities. Patient denies any significant weakness, although last night when she was trying to brush her teeth, she almost fell because left leg felt shaky trembling like will give out. Patient was scheduled for lumbar surgery today, but the orthopedic surgeon developed some sickness, therefore surgery was canceled. Patient came for pain management. Patient denies any bowel or bladder control issues. Patient had undergone lumbar epidural steroid injection at L5-S1 level on 08/20/2020 which did not help. Patient's CBC, CMP is normal. MRI of the lumbar spine from 08/19/2020 revealed disc herniation greatest at L5-S1, where there is posterior broad-based disc herniation causing some anterior mass effect on the thecal sac. There is displacement of the left S1 nerve root posteriorly, likely mass effect on the right S1 nerve root, mild spinal stenosis. Some facet arthropathy changes present. Circumferential extension endplate disc complex encroaches on the foramina greater on the left than on the right. Patient had a normal MRI of the cervical spine on 07/03/2014. Patient currently takes Paxil 20 mg, levothyroxine, Flexeril 10 mg, [place] 5/325 gabapentin 3 mg 3 times a day and prednisone 10 mg tapering dose. Patient denies diabetes or hypertension. She has smoked half pack per day for last 16 years. Still smokes. Denies any alcohol or drugs. Review of Systems Positive for low back pain with tingling in the left leg as mentioned. All other 14 point of review of systems unremarkable. Denies chest pain shortness of breath, wheezing or cough. Past Medical History Additional Past Medical History / Comment(s): herniated disc with chronic lower back pain radiating down legs, history of tingling and pain za wrists and hands (resolved), hives History of Any Multi-Drug Resistant Organisms: None Reported Past Surgical History: No Surgical Hx Reported Past Anesthesia/Blood Transfusion Reactions: No Reported Reaction Additional Past Anesthesia/Blood Transfusion Reaction / Comment(s): Patient has never had a transfusion or anesthesia. Past Psychological History: Anxiety Smoking Status: Current every day smoker Past Alcohol Use History: Occasional Past Drug Use History: None Reported - Past Family History Father Family Medical History: Asthma, Hypertension Additional Family Medical History / Comment(s): back issues with sciatica and herniated discs Mother History Unknown: Yes Brother(s) Additional Family Medical History / Comment(s): crohns, borderline diabetic Sister(s) Family Medical History: No Reported History Son(s) Family Medical History: No Reported History Medications and Allergies Home Medications Medication Instructions Recorded Confirmed Type Cyclobenzaprine [Flexeril] 10 mg PO HS 08/18/20 09/15/20 History Levothyroxine Sodium [Synthroid] 25 mcg PO DAILY 08/18/20 09/15/20 History PARoxetine HCL [Paxil] 20 mg PO DAILY 08/18/20 09/15/20 History Gabapentin [Neurontin] 300 mg PO TID 09/15/20 09/15/20 History HYDROcodone/APAP 5-325MG [[place] 1 tab PO Q8H PRN 09/15/20 09/15/20 History 5-325] predniSONE See Taper PO DAILY 09/15/20 09/15/20 History Allergies Allergy/AdvReac Type Severity Reaction Status Date / Time ketorolac [From Toradol] Allergy Rash/Hives Verified 09/15/20 23:09 tramadol Allergy Rash/Hives Verified 09/15/20 23:09 Physical Examination - Vital Signs Vital Signs: Vital Signs Temp Pulse Pulse Resp BP BP Pulse Ox 09/16/20 07:56 97.8 F 89 14 100/63 95 09/16/20 00:11 97.6 F 86 18 105/72 95 09/15/20 21:38 96 18 117/87 100 09/15/20 18:42 98.1 F 112 H 16 115/76 96 Intake and Output 09/15/20 09/16/20 09/16/20 22:59 06:59 14:59 Other: Voiding Method Toilet Weight 73.936 kg On examination patient is a young female, who is crying because of pain. Her mental status, speech and language functions are normal. Attention, concentration and fund of knowledge is adequate. On cranial nerve examination pupils are round and reacting to light, visual vieira are full to confrontation, extraocular muscles are intact with no nystagmus. Face is symmetric, tongue p rotrudes to the midline. Palatal elevation and sensation normal hearing and shoulder shrug normal. Facial sensation normal. On muscle strength testing there is no pronator drift and the strength is normal in the arms and legs distally and proximally including detailed testing of the left leg. Patient did have some guarding of the left hip flexion, but appeared fairly strong. Hip adduction, abduction knee extension ankles and toes are normal. Reflexes are 2+ in the upper, 2+ in the lower limbs at the knees and ankles bilaterally. Plantars are downgoing. Sensory to touch is equal with no loss of sensation in any dermatome. Tone and bulk of muscles normal. Gait deferred. There is no carotid bruit or murmur peripheral pulses are present. No peripheral edema. Chest is clear, abdomen soft nontender. Results - Laboratory Findings CBC and BMP: 09/15/20 22:46 09/15/20 22:46 Abnormal Lab Findings: Abnormal Labs 09/15/20 09/15/20 22:46 22:46 WBC 13.0 H Neutrophils # 8.1 H Carbon Dioxide 31 H BUN 18 H Glucose 115 H Assessment and Plan Assessment: * Lumbar radiculopathy, due to herniated disc, possible left S1 root involvement based upon the history. Her examination is completely nonfocal, with preserved ankle reflexes, bilaterally. * Lumbar degenerative disc disease * Tobacco use Plan: * Agree with increasing dose of gabapentin to 600 mg 3 times a day. * Patient currently on ibuprofen 400 mg every 6 hours when necessary. Consider switching to Mobic 15 mg daily for back pain. * Pain medication on board, patient on Percocet. * Agree with Zanaflex 4 mg 3 times a day muscle relaxer. * PT OT. * Consider EMG and nerve conduction study of left lower extremity as outpatient.
[2020-09-16] MEDS: ONDANSETRON 4 MG/2 ML VIAL IVP PRN ×2 (14:26→21:35)
[2020-09-16 15:41] LABS: Appearance,Urine Clear (Clear); Bilirubin,Urine Negative (Negative); Blood,Urine Negative (Negative); Color,Urine Yellow; Glucose,Urine (UA) Negative (Negative); Ketones,Urine Negative (Negative); Leukocyte Esterase,Urine Negative (Negative); Nitrite,Urine Negative (Negative); PH, Urine 5.5 (5.0-8.0); Protein,Urine Negative (Negative); Specific Gravity,Urine 1.022 (1.001-1.035); Urobilinogen,Urine <2.0 mg/dL (<2.0)
[2020-09-16] MEDS: tiZANidine 4 MG TAB PO SCH ×2 (16:50→21:35)
[2020-09-16] MEDS: GABAPENTIN 300 MG CAP PO SCH ×2 (16:50→21:35)
[2020-09-16] MEDS ORDERED: CYCLOBENZAPRINE 10 MG TAB PO SCH (21:00)
[2020-09-16] MEDS: FAMOTIDINE 20 MG TAB PO SCH (21:35)
--- NOTE | 2020-09-16 23:15 | P.CNOR ---
History of Present Illness - [facility] Consult date: 09/16/20 Requesting physician: Jamie Cameron Consult reason: low back pain, other (Left lower extremity radiculopathy) History of present illness: Patient is a very pleasant 34-year-old female well known to our service was seen and examined bedside for further evaluation regards to her low back pain and severe left lower extremity radiculopathy. She was previously seen in the [facility] r[facility] unit on 08/19/2020. After evaluation, lumbar MRI imaging was taken at that time. She was found to have a large disc herniation at L5-S1. She underwent an injection with pain management on 08/20/2020 without significant control her symptoms. Her pain was medically controlled and she was able to be discharged home. She followed up in the office for further evaluation. At that time she is scheduled for surgical intervention. The proposed surgical intervention is a L5-S1 laminectomy and decompression with discectomy was scheduled to be performed on 09/16/2020. She was also prescribed a prednisone 10 mg taper. She has been taking [place], cyclobenzaprine, and gabapentin without significant control her symptoms. Her surgery scheduled for today was canceled as Dr. Helio Munoz is currently ill and unable to perform the surgery. Her surgery has been rescheduled for 10/07/2020. She states last evening she had significant difficulty with her pain control and presented to the emergency department for further evaluation. She has been seen by medicine and pain management. They discussed the possibility of further injections at her lumbosacral spine but due to the lack of improvement of her symptoms previously and she declined further injection. Patient was discussed with pain management in detail who is planning to adjust her oral medications to see her symptoms can be better controlled. Patient states she has not had any injury since her last evaluation. She feels her pain has been more severe. She continues have pain in the lower lumbar spine with radiation down the left lower extremity. She states she has pain in the region of the lumbar spine, into the left buttock, down the left posterior and posterior lateral thigh to the knee. She has significant difficulty with regular activities of daily living. She states nothing helps improve her pain. She has difficulty with sitting, standing, lying, and walking. She does not currently feel pain is adequately controlled. She continues to be off work due to her symptoms. She denies any saddle anesthesia. She is able to urinate without difficulty. She had a bowel movement yesterday without difficulty. She denies any new onset weakness in bilateral lower extremities. Past Medical History Additional Past Medical History / Comment(s): herniated disc with chronic lower back pain radiating down legs, history of tingling and pain za wrists and hands (resolved), hives History of Any Multi-Drug Resistant Organisms: None Reported Past Surgical History: No Surgical Hx Reported Past Anesthesia/Blood Transfusion Reactions: No Reported Reaction Additional Past Anesthesia/Blood Transfusion Reaction / Comm: Patient has never had a transfusion or anesthesia. Past Psychological History: Anxiety Smoking Status: Current every day smoker Past Alcohol Use History: Occasional Past Drug Use History: None Reported - Past Family History Father Family Medical History: Asthma, Hypertension Additional Family Medical History / Comment(s): back issues with sciatica and herniated discs Mother History Unknown: Yes Brother(s) Additional Family Medical History / Comment(s): crohns, borderline diabetic Sister(s) Family Medical History: No Reported History Son(s) Family Medical History: No Reported History Medications and Allergies Home Medications Medication Instructions Recorded Confirmed Type Cyclobenzaprine [Flexeril] 10 mg PO HS 08/18/20 09/15/20 History Levothyroxine Sodium [Synthroid] 25 mcg PO DAILY 08/18/20 09/15/20 History PARoxetine HCL [Paxil] 20 mg PO DAILY 08/18/20 09/15/20 History Gabapentin [Neurontin] 300 mg PO TID 09/15/20 09/15/20 History HYDROcodone/APAP 5-325MG [[place] 1 tab PO Q8H PRN 09/15/20 09/15/20 History 5-325] predniSONE See Taper PO DAILY 09/15/20 09/15/20 History Allergies Allergy/AdvReac Type Severity Reaction Status Date / Time ketorolac [From Toradol] Allergy Rash/Hives Verified 09/15/20 23:09 tramadol Allergy Rash/Hives Verified 09/15/20 23:09 Physical Examination Physical exam: Patient is awake, alert, and oriented 3 Patient is visibly upset and crying at the bedside Vital signs stable Good chest excursion with deep inspiration and expiration Examination of lumbar spine reveals skin is intact with no abrasions, lacerations, or bruises; no erythema, purulence or signs of infection Pain with palpation along the midline at the lower lumbar and lumbosacral junction Evidence of a small tattoo over the left iliac crest/upper buttock Evidence of multiple tattoos the upper extremities lower extremity Dorsiflexion, plantarflexion, and extensor hallucis longus positive sustained bilaterally Lower extremity strength 5/5 bilaterally Positive straight leg test left lower extremity Positive Lasegue's test of lower extremity No signs or symptoms of DVT; no calf pain Neurovascularly intact Results Pertinent studies: MRI of the lumbar spine taken on 08/19/2020: L2-3 and L3-4 posterior disc bulge without stenosis; L4-5 broad-based disc bulge and facet arthropathy with some foraminal encroachment; L5-S1 extruded disc herniation with caudal migration and facet arthropathy causing distortion of the traversing nerve root and severe left neural foraminal stenosis CT lumbar spine taken on 08/18/2020: Overall alignment appears adequately maintained; no evidence of vertebral body compression fracture deformity; L5-S1 degenerative disc disease; there may be evidence of herniated nucleus pulposus at L4-5 and L5-S1 which would be better visualized on MRI imaging - Labs Labs: Abnormal Lab Results - Last 24 Hours (Table) 09/15/20 09/15/20 Range/Units 22:46 22:46 WBC 13.0 H (3.8-10.6) k/uL Neutrophils # 8.1 H (1.3-7.7) k/uL Carbon Dioxide 31 H (22-30) mmol/L BUN 18 H (7-17) mg/dL Glucose 115 H (74-99) mg/dL H & H 09/15/20 Range/Units 22:46 Hgb 13.8 (11.4-16.0) gm/dL Hct 42.8 (34.0-46.0) % Result Diagrams: 09/15/20 22:46 09/15/20 22:46 Assessment and Plan Assessment: Assessment: Intractable low back pain Intractable Left lower extremity radiculopathy L5-S1 herniated nucleus pulposus with severe left neural foraminal stenosis L5-S1 degenerative disc disease (1) Herniated nucleus pulposus, L5-S1 Current Visit: Yes Status: Acute Code(s): M51.27 - OTHER INTERVERTEBRAL DISC DISPLACEMENT, LUMBOSACRAL REGION SNOMED Code(s): 19309550 (2) Intractable low back pain Current Visit: Yes Status: Acute Code(s): M54.5 - LOW BACK PAIN SNOMED Code(s): 36552327855383651 (3) DDD (degenerative disc disease), lumbosacral Current Visit: No Status: Acute Code(s): M51.37 - OTHER INTERVERTEBRAL DISC DEGENERATION, LUMBOSACRAL REGION SNOMED Code(s): 91495935 (4) Lumbar back pain with radiculopathy affecting left lower extremity Current Visit: No Status: Acute Code(s): M54.16 - RADICULOPATHY, LUMBAR REGION SNOMED Code(s): 541003812 Plan: Plan: 1. Patient continues to experience intractable back pain and severe left lower extremity radiculopathy. She denies any saddle anesthesia. She denies any new onset weakness. She does had continued significant difficulty regular activities of daily living given her pain. She denies any difficulty with urination or bowel movements. She had a bowel movement yesterday without difficulty. She does have evidence of an L5-S1 extruded disc herniation with caudal migration and facet arthropathy causing distortion of the traversing nerve root and severe left neural foraminal stenosis. She was scheduled to undergo surgical intervention today but this was canceled due to Dr. Helio Munoz currently being ill. At this time, consultation has been placed with pain management who has seen the patient. They're currently planning to modify the patient's medications to see if her symptoms can be better controlled with oral medication. Patient declines further injections at her lumbosacral spine as a previous injection did not provide any significant improvement of her symptoms. Pain management is planning to modify her medications today. If her symptoms are slightly better controlled, they will plan to prescribed her these medicati ons at the time of discharge. We are currently planning to try to modify the patient's medication for better pain control with the patient would be able to be discharged home. If she is able to be discharged home, we will plan to proceed forward with surgical intervention at her lumbosacral spine as scheduled on 10/07/2020. If the patient's symptoms are better controlled later today, she is clear for discharge from an orthopedic spine standpoint. We will plan to have her follow-up in the outpatient setting in approximately 2 weeks for further evaluation prior to her scheduled surgical intervention. If her symptoms fail to be adequately controlled, we will plan to consult Dr. Conti in orthopedic spine surgery for further evaluation and to discuss the possibility of surgical intervention during her admission to the hospital. Patient has been discussed in detail with Dr. Helio Munoz and he agrees with this plan. 2. Patient will continue be seen examined by other medical providers including medicine and pain management. Consultation is also been placed with neurology. Time with Patient: Greater than 30 (Including obtaining history, physical exami nation, reviewing of imaging, and dictation.)
[2020-09-17] MEDS: ACETAMINOPHEN TAB 500 MG TAB PO SCH ×4 (00:55→18:17)
[2020-09-17] MEDS: HYDROmorphone 1 MG/ML 1 ML SYRINGE IVP PRN ×5 (00:57→19:26)
[2020-09-17] MEDS: SODIUM CHLORIDE 0.9% 1,000 ML IV SCH ×2 (02:05→11:47)
[2020-09-17] MEDS: LEVOTHYROXINE 25 MCG TAB PO SCH (05:51)
[2020-09-17] MEDS: FAMOTIDINE 20 MG TAB PO SCH ×2 (08:01→21:18)
[2020-09-17] MEDS: GABAPENTIN 300 MG CAP PO SCH ×3 (08:01→21:18)
[2020-09-17] MEDS: PARoxetine 20 MG TAB PO SCH (08:40)
[2020-09-17] MEDS: tiZANidine 4 MG TAB PO SCH ×3 (08:40→21:18)
[2020-09-17] MEDS: ONDANSETRON 4 MG/2 ML VIAL IVP PRN (08:41)
[2020-09-17] MEDS: predniSONE 10 MG TAB PO SCH (08:58)
[2020-09-17] MEDS ORDERED: ENOXAPARIN 40 MG/0.4 ML SYRINGE SQ SCH (09:00)
--- NOTE | 2020-09-17 11:30 | P.CNOR ---
History of Present Illness - [facility] Consult date: 09/17/20 Consult reason: low back pain History of present illness: Patient is a very pleasant 34-year-old female well known to our service was seen and examined bedside for further evaluation regards to her low back pain and severe left lower extremity radiculopathy. She was previously seen in the observation unit on 08/19/2020. After evaluation, lumbar MRI imaging was taken at that time. She was found to have a large disc herniation at L5-S1. She underwent an injection with pain management on 08/20/2020 without significant control her symptoms. Her pain was medically controlled and she was able to be discharged home. She followed up in the office for further evaluation. At that time she is scheduled for surgical intervention. The proposed surgical intervention is a L5-S1 laminectomy and decompression with discectomy was scheduled to be performed on 09/16/2020. She was also prescribed a prednisone 10 mg taper. She has been taking [place], cyclobenzaprine, and gabapentin without significant control her symptoms. Her surgery scheduled for today was canceled as Dr. Helio Munoz is currently ill and unable to perform the surgery. Her surgery has been rescheduled for 10/07/2020. She states last evening she had significant difficulty with her pain control and presented to the emergency de partment for further evaluation. She has been seen by medicine and pain management. They discussed the possibility of further injections at her lumbosacral spine but due to the lack of improvement of her symptoms previously and she declined further injection. Patient was discussed with pain management in detail who is planning to adjust her oral medications to see her symptoms can be better controlled. Patient states she has not had any injury since her last evaluation. She feels her pain has been more severe. She continues have pain in the lower lumbar spine with radiation down the left lower extremity. She states she has pain in the region of the lumbar spine, into the left buttock, down the left posterior and posterior lateral thigh to the knee. She has significant difficulty with regular activities of daily living. She states nothing helps improve her pain. She has difficulty with sitting, standing, lying, and walking. She does not currently feel pain is adequately controlled. She continues to be off work due to her symptoms. She denies any saddle anesthesia. She is able to urinate without difficulty. She had a bowel movement yesterday without difficulty. She denies any new onset weakness in bilateral lower extremities. Patient was seen and examined this morning. She is still in a lot of pain in her left lower extremity in her left foot. She states tensioning type signs and she straightens her leg which increases her pain numbness and tingling. She denies any bowel or bladder issues she denies any incontinence she denies any perineal numbness or tingling. Review of Systems 14 points review of systems completed and as stated in HPI or otherwise negative. Past Medical History Additional Past Medical History / Comment(s): herniated disc with chronic lower back pain radiating down legs, history of tingling and pain za wrists and hands (resolved), hives History of Any Multi-Drug Resistant Organisms: None Reported Past Surgical History: No Surgical Hx Reported Past Anesthesia/Blood Transfusion Reactions: No Reported Reaction Additional Past Anesthesia/Blood Transfusion Reaction / Comm: Patient has never had a transfusion or anesthesia. Past Psychological History: Anxiety Smoking Status: Current every day smoker Past Alcohol Use History: Occasional Past Drug Use History: None Reported - Past Family History Father Family Medical History: Asthma, Hypertension Additional Family Medical History / Comment(s): back issues with sciatica and herniated discs Mother History Unknown: Yes Brother(s) Additional Family Medical History / Comment(s): crohns, borderline diabetic Sister(s) Family Medical History: No Reported History Son(s) Family Medical History: No Reported History Medications and Allergies Home Medications Medication Instructions Recorded Confirmed Type Cyclobenzaprine [Flexeril] 10 mg PO HS 08/18/20 09/15/20 History Levothyroxine Sodium [Synthroid] 25 mcg PO DAILY 08/18/20 09/15/20 History PARoxetine HCL [Paxil] 20 mg PO DAILY 08/18/20 09/15/20 History Gabapentin [Neurontin] 300 mg PO TID 09/15/20 09/15/20 History HYDROcodone/APAP 5-325MG [[place] 1 tab PO Q8H PRN 09/15/20 09/15/20 History 5-325] predniSONE See Taper PO DAILY 09/15/20 09/15/20 History Allergies Allergy/AdvReac Type Severity Reaction Status Date / Time ketorolac [From Toradol] Allergy Rash/Hives Verified 09/15/20 23:09 tramadol Allergy Rash/Hives Verified 09/15/20 23:09 Physical Examination Osteopathic Statement: *. No significant issues noted on an osteopathic structural exam other than those noted in the History and Physical/Consult. GEN: AOX3, NAD VSS Inspection: Well-hydrated well-nourished normal habitus. Palpation: Minimal to mild pain with palpation of the lumbar spine on the right hand and left hand side. No ballottement Motor: 5/5 shoulder abd/EF/EE/WF/intrinsics 5/5 DF/PF/EHL/FHL/HF/KE/KF Reflexes: 2/4 DTR all upper and LE Sensation intact to light touch in C5-T1 as well as L2-S1 distribution Moyer's: Negative bilaterally Clonus: Negative bilaterally Babinski: Bilaterally Positive straight leg test on the left. Positive contralateral straight leg test on the right. Positive tensioning signs bilateral lower extremities worse on the left. Dermatomal deficit on S1 on the left. Cranial nerves II through XII grossly intact Results MRI reviewed. There is a large disc herniation L5-S1 on the left which exits extra foraminally and causes can encroachment as well as caudally along vertebral body causing pressure on the L5 and S1 nerve roots on the left. She does have stenosis at this level as well she has stenosis at L4 5 which is mild to moderate. There is evidence of annular tearing at L4 5 however there is no overt disc herniation at this level. There is mild to moderate stenosis at L4 5 as well. No fractures or dislocations noted. Overall alignment is maintained. - Labs Labs: H & H 09/15/20 Range/Units 22:46 Hgb 13.8 (11.4-16.0) gm/dL Hct 42.8 (34.0-46.0) % Result Diagrams: 09/15/20 22:46 09/15/20 22:46 Assessment and Plan Assessment: 34-year-old female L5-S1 disc herniation with left lower extremity radiculopathy, severe, left L5-S1 dermatomal deficit L4 5 annular tearing with disc bulging Plan: 1. Plan for a longer 09/18/2020 in the afternoon for L5-S1 microdiscectomy 2. Nothing by mouth at midnight 3. Stop Lovenox 4. Medical management and clearance for surgery, appreciated consultation 5. Discuss case with Dr. Munoz PA would be happy to assume care. 6. Risk discussion with patient 7. Expected length of stay 1-2 days Spine Surgery Risk Review Khai Lopez is a 34 show female presenting for evaluation of low back pain and severe left lower extremity radiculopathy dermatomal deficit and tensioning signs. It was my pleasure to have seen and examined Yamile Lopez. In our visit today we have had a chance to go over subjective complaints, physical examination findings and treatments including the natural course history without intervention and various interventional options. The patients imaging demonstrates L5-S1 large disc herniation with extrusion and foraminal stenosis as well as central stenosis which is moderate to severe. On physical exam, Yamile Lopez demonstrates severe tensioning signs on the left refractory to outpatient and conservative treatments including injections physical therapy and medications. I have explained to the patient that as their condition progresses it will cause further neurological deficits and eventual paralysis. Based on the patients imaging, physical exam, and the rapid progression and disabling nature of their symptoms, at this time I recommend surgery in the form or a: L5-S1 decompression and discectomy. I discussed the risk and benefits of this procedure at length wi th Yamile Lopez. The patient agreed to considered pursuing the procedure abovementioned. Prior to surgery, she should follow up with her PCP (Cardio, ID, IM etc) for clearance. Questions were invited and answered, and the patient wishes to proceed as outlined below. Currently, I am recommendin. L5-S1 decompressive laminectomy and microdiscectomy 2. Follow up with PCP for surgical clearance 3. Review of surgical risks and benefits as well as an educational packet on the proposed surgical procedure. Risks: All surgical procedures come with inherent risks, including those related to positioning, anesthesia, intraoperative findings, and postoperative complications. It is important to understand that surgery does not come with any guarantee of a successful outcome as complications and adverse events are always possible. The patient was given a handout in office today discussing the surgical procedure and risks associated with the intervention, both of which were discussed with the patient. These risks include but are not limited to the following: * Experiencing same, different or even worse symptoms in back, neck, arms, or legs compared to before surgery. * Requiring further surgery or other forms of treatment presently or at some time in the future at same or other levels of the intended spine surgery. * On an extreme but fortunately relatively rare basis severe complication such as blindness, stroke, heart attack, temporary and/or permanent nerve injury, paralysis, coma, or may occur, sometimes without known explanation. * Surgical complications may include but are not limited to risk of infection, fluid accumulation in the surgical dissection site, including a seroma or hematoma, that requires additional surgery, wound drainage, bleeding, new numbness or weakness, vision changes/loss, spinal fluid leakage, non-healing and/or infected incision, headaches, difficulty or inability to swallow, hoarseness, hemopneumothorax, pneumothorax, impotence, retrograde ejaculation, vaginal dryness; injury to nerves, spinal cord, blood vessels, lymphatics or other vital organs (i.e., bowel injury, injury to the great vessels); heterotopic bone formation; complications related to the hardware such as screws, rods, cages including misplaced hardware, device failure, instrumentation at the wrong spine level, hardware fracture/breakage, or hardware loosening; vertebral failure of the spinal column above or below the newly placed hardware; retained surgical instrumentations or devices and the need for further surgery. * Medical risks of the planned spine surgery include but are not limited to generalized Infections to the whole body or local areas outside of the surgical site (sepsis), heart attack, bleeding, anaphylaxis, meningitis, seizure, epilepsy, hearing loss, burn clement, laceration of the head or other areas of the body, bruising, hypersensitivity of the skin, bladder over distension; allergic reaction; shoulder injury related to positioning; fat, blood and air clots to other areas of the body like heart, lungs, brain; failure of internal organs such as lungs, kidneys, liver and excessive bleeding. If blood transfusions are necessary, note that transfusions may cause intolerance reactions such as anaphylaxis or other complex reactions. * Despite best efforts, the results of spine surgery might not heal in terms of bone, soft tissues such as skin, fascia, ligaments, and joints. Additionally, in order to achieve best possible results, spine surgery may be carried out beyond the initially planned levels and involve decompression, fusion including insertion of hardware at levels other than the original intended area of surgical interest change some portions of the procedure in order to ensure the best possible outcomes. * With spine surgery and spinal fusion, there are different off label uses of instrumentation (devices, implants and hardware) as well as biological substances (bone morphogenic proteins, demineralized bone matrix) as well as using extra bone from allograft sources (i.e. cadaver bone) or autograft (iliac crest bone, ribs, or the spine itself). The patient has been given information about these practices and their inherent risks and benefits. * [facility] is an educational center that serves as a training facility for neurosurgical and orthopedic spine residents and fellows. Residents are physicians who are completing their surgical intensive training following medical school. They assist in the operating room with direct supervision of the attending surgeons. [place] are surgeons who have completed their training and eligible for board certification. They have opted for an elective year of more specialized training in their field. They assist in the operating room under the supervision of the attending surgeons. Physician assistants are medically trained surgical providers who function in the outpatient, inpatient, and operating room setting under the direct supervision of the attending surgeon. * [facility] has multiple operating rooms with single and overlapping rooms running daily. They currently function under the required guidelines as produced by the [facility] Finance Committee with regards to the overlapping rooms and will continue to comply with changes to this policy as they occur. The requirements include and are complied with as follows: (1) the critical portions of the overlapping rooms will not occur at the same time, (2) the attending physician will be physically present during the critical portions of the procedure and immediately available during the entire case, and (3) a back-up attending is designated should the primary attending not be immediately available. The patient has had a chance to review all the listed information, has been given print outs detailing this information, and has had all his/her questions answered to their satisfaction. It was my pleasure to have seen and examined Yamile Lopez. In our visit today we have had a chance to go over my understanding of our patient's current condition, the natural course history without intervention and various interventional options. Questions were invited and answered, and the patient wishes to proceed as outlined above. I have seen and examined the patient for 25 minutes and we have spent more than 50% of the time in repeat and detailed counseling about the patient's condition, its natural course history with out and as much as can be predicted with surgery and re-review of various surgical treatment options. In conclusion, Yamile Lopez requested we proceed with the above suggested surgery and are willing to accept risks and limitations of the suggested surgery as nature of the disease process and our best attempts at treatment for the condition. Thank you again for allowing us to be part of your patient's care. Please don't hesitate to contact me if you have any further questions. Signed and authenticated by: Ashvin Mariscal [facility] [address] [place] [address] Time with Patient: Greater than 30
[2020-09-17] MEDS: oxyCODONE-APAP 5-325MG 1 EACH TAB PO PRN ×2 (11:47→21:21)
--- NOTE | 2020-09-17 14:48 | P.PN ---
Subjective Progress Note Date: 09/17/20 Patient was seen for a follow-up. Patient was laying comfortably in the bed, talking to someone on the cellular phone. However when I entered the room, patient did complain of pain. Rates it 05/08. Patient states she has been sleeping a lot. Pain medication only helping to keep her somewhat comfortable. Patient is undergoing lumbar surgery tomorrow. Objective - Vital Signs Vital signs: Vital Signs Temp 97.5 F L 09/17/20 14:16 Pulse 64 09/17/20 14:16 Resp 18 09/17/20 14:16 BP 132/71 09/17/20 14:16 Pulse Ox 97 09/17/20 14:16 Intake & Output 09/16/20 09/17/20 09/17/20 18:59 06:59 18:59 Other: Voiding Method Toilet Toilet # Voids 2 1 2 - Exam Mental status, speech and language functions are normal. Detailed motor testing Deferred. - Labs CBC & Chem 7: 09/15/20 22:46 09/15/20 22:46 Assessment and Plan Assessment: * Lumbar radiculopathy, due to herniated disc L5-S1 level, possible left S1 root involvement based upon the history. Her examination is completely nonfocal, with preserved ankle reflexes, bilaterally. * Lumbar degenerative disc disease with annular tear and disc bulging. * Tobacco use Plan: * Continue gabapentin 600 mg 3 times a day. * Stop ibuprofen and start Mobic 15 mg daily * Pain medication on board, patient on Percocet. * Continue Zanaflex 4 mg 3 times a day muscle relaxer. * PT OT. * Consider EMG and nerve conduction study of left lower extremity as outpatient. * Patient to undergo lumbar spinal decompressive surgery in a.m.
--- NOTE | 2020-09-17 15:21 | P.PN ---
Subjective Progress Note Date: 09/17/20 Patient pleasant 34-year-old the female with history of 4 chronic low back pain and herniated disc came in with uncontrolled pain patient is supposed to get a back surgery by Dr. Munoz today, the surgeon is not available at this time patient is unable to get surgery. Patient is comparing of severe 9/10 pain debilitating unable to do anything at home with the radiculopathy predominantly in the left leg and weakness which started last night in the left leg. Patient is already on steroids at this time. Patient denied any saddle anesthesia follow bladder incontinence. During her last hospital physician patient did get the epidural steroid injection. Pain management will be consulted again. Patie nt does have leukocytosis without any evidence of sepsis. 09/17/2020 Patient is seen and evaluated and follow-up and continues to have intractable low back pain which is chronic in nature. Patient states her pain is being managed and is currently about a 6 out of 10 on the pain scale. Patient is scheduled to undergo surgery with Ortho in the morning of the left L5-S1 microdiscectomy. Patient currently tolerating diet with intermittent periods of nausea and denies any vomiting. Patient denies any dysuria loss of bowel or bladder and has been getting up to the bathroom and back to bed. Review of systems: Constitutional: No reports of fatigue, fever, or chills Cardiovascular: No reports of chest pain or palpitations Respiratory: No reports of shortness of breath or cough GI: Reports intermittent nausea, with no reports of vomiting, or diarrhea : No reports of dysuria or retention Neurovascular: No reports of weakness or numbness All medications have been reviewed Objective - Vital Signs Vital signs: Vital Signs Temp 97.5 F L 09/17/20 14:16 Pulse 64 09/17/20 14:16 Resp 18 09/17/20 14:16 BP 132/71 09/17/20 14:16 Pulse Ox 97 09/17/20 14:16 Intake & Output 09/16/20 09/17/20 09/17/20 18:59 06:59 18:59 Other: Voiding Method Toilet Toilet # Voids 2 1 2 - Exam GENERAL: The patient is alert and oriented x3, not in any acute distress. Well developed, well nourished. HEENT: Pupils are round and equally reacting to light. EOMI. No scleral icterus. No conjunctival pallor. Normocephalic, atraumatic. No pharyngeal erythema. No thyromegaly. CARDIOVASCULAR: S1 and S2 present. No murmurs, rubs, or gallops. PULMONARY: Chest is clear to auscultation, no wheezing or crackles. ABDOMEN: Soft, nontender, nondistended, normoactive bowel sounds. No palpable organomegaly. MUSCULOSKELETAL: No joint swelling or deformity. EXTREMITIES: No cyanosis, clubbing, or pedal edema. NEUROLOGICAL: Generalized weakness although walking to the bathroom. Patient has positive straight leg raising test. Although she is able to raise her left leg little bit SKIN: No rashes. Multiple tattoos noted to upper extremities - Labs CBC & Chem 7: 09/15/20 22:46 09/15/20 22:46 Assessment and Plan Assessment: -Chronic low back pain with possible disc prolapse: Orthopedic surgery following and planning and L5-S1 microdiscectomy tomorrow. Pain management consult angie hernandez pending -Complaints of weakness in the left leg: Neurology following recommending outpatient EMG -Leukocytosis secondary to steroids she is taking at home -Nicotine use: Counseling was provided -DVT prophylaxis was Lovenox -GI prophylaxis with Pepcid PLan: Continue current pain management. Patient will be made nothing by mouth at midnight and will be having surgery with orthopedic sometime tomorrow afternoon. Will continue to monitor closely and await surgical report. Further recommen dations to follow.
[2020-09-17] MEDS: MELOXICAM 7.5 MG TAB PO SCH (19:25)
[2020-09-17] MEDS: LORazepam 2 MG/ML INJ IV PRN (21:18)
[2020-09-18] MEDS: ACETAMINOPHEN TAB 500 MG TAB PO SCH ×4 (00:46→21:46)
[2020-09-18] MEDS: SODIUM CHLORIDE 0.9% 1,000 ML IV SCH ×2 (04:00→22:18)
[2020-09-18] MEDS: HYDROmorphone 1 MG/ML 1 ML SYRINGE IVP PRN ×4 (04:48→14:59)
[2020-09-18] MEDS: LEVOTHYROXINE 25 MCG TAB PO SCH (05:01)
[2020-09-18] MEDS ORDERED: MIDAZOLAM 2 MG/2 ML VIAL ONE (07:09)
[2020-09-18] MEDS ORDERED: SODIUM CHLORIDE 0.9% 100 ML BAG ONE (07:09)
[2020-09-18] MEDS ORDERED: PROPOFOL 10 MG/ML 20 ML VIAL IV ONE (07:09)
[2020-09-18] MEDS ORDERED: LIDOCAINE 1% INJ 10MG/ML (20 ML MDV) ONE (07:09)
[2020-09-18] MEDS ORDERED: ROCURONIUM 10 MG/ML (10 ML VIAL) IV ONE (07:09)
[2020-09-18] MEDS ORDERED: PHENYLEPHRINE-0.9% NACL SYG 1 MG/10 ML SYRINGE ONE (07:09)
[2020-09-18] MEDS ORDERED: fentaNYL (PF) 50 MCG/ML 2 ML AMP ONE (07:09)
[2020-09-18] MEDS ORDERED: HYDROmorphone (PF) 1 MG/ML ONE (07:09)
[2020-09-18] MEDS ORDERED: TRANEXAMIC ACID 1,000 MG/10 ML VIAL ONE (07:09)
[2020-09-18] MEDS ORDERED: NEOSTIGMINE 1 MG/ML 10 ML VIAL ONE (07:09)
[2020-09-18] MEDS ORDERED: GLYCOPYRROLATE 0.2 MG/ML 2 ML VIAL ONE (07:09)
--- NOTE | 2020-09-18 07:35 | P.PN ---
Subjective Progress Note Date: 09/18/20 Principal diagnosis: L5-S1 HNP, severe stenosis Pt s/e this AM. Doing OK up in chair. C/O severe LLE radicular pain still. Difficulty with ambulation due to this. Cannot tolerate conservative measures alone. Is ready for surgery today. Confirmed NPO since MN. Lovenox stopped yesterday. Risks again discussed as documented in chart. She is ready and willing for procedure today. Objective - Vital Signs Vital signs: Vital Signs Temp 98.0 F 09/18/20 04:33 Pulse 90 09/18/20 04:33 Resp 16 09/18/20 04:33 BP 106/72 09/18/20 04:33 Pulse Ox 97 09/18/20 04:33 Intake & Output 09/17/20 09/18/20 09/18/20 18:59 06:59 18:59 Other: Voiding Method Toilet Toilet # Voids 2 1 - Exam + SLR L + contralateral SLR 5/5 DF/PF/EHL/FHL/SLR b/l with increased pain SILT L2-S1 with mild S1 dermatomal deficit on L. 2/4 distal pulses all Compartments soft Babinski neg b/l Hoffmans neg b/l No clonus CN II-XII grossly intact EOMI Heart RRR Lungs CTAB - Labs CBC & Chem 7: 09/15/20 22:46 09/15/20 22:46 Assessment and Plan Assessment: 34-year-old female L5-S1 disc herniation with left lower extremity radiculopathy, severe, left L5-S1 dermatomal deficit L4 5 annular tearing with disc bulging Plan: 1. Plan for surgery 09/18/2020 in the afternoon for L5-S1 microdiscectomy 2. Nothing by mouth at midnight 3. Stop Lovenox 4. Medical management and clearance for surgery, appreciated consultation 5. ELOS 1-2 days Spine Surgery Risk Review Khai Lopez is a 34 show female presenting for evaluation of low back pain and severe left lower extremity radiculopathy dermatomal deficit and tensioning signs. It was my pleasure to have seen and examined Yamile Lopez. In our visit today we have had a chance to go over subjective complaints, physical examination findings and treatments including the natural course history without intervention and various interventional options. The patients imaging demonstrates L5-S1 large disc herniation with extrusion and foraminal stenosis as well as central stenosis which is moderate to severe. On physical exam, Yamile Lopez demonstrates severe tensioning signs on the left refractory to outpatient and conservative treatments including injections physical therapy and medications. I have explained to the patient that as their condition progresses it will cause further neurological deficits and eventual paralysis. Based on the patients imaging, physical exam, and the rapid progression and disabling nature of their symptoms, at this time I recommend surgery in the form or a: L5-S1 decompression and discectomy. I discussed the risk and benefits of this procedure at length with Yamile Lopez. The patient agreed to considered pursuing the procedure abovementioned. Prior to surgery, she should follow up with her PCP (Cardio, ID, IM etc) for clearance. Questions were invited and answered, and the patient wishes to proceed as outlined below. Currently, I am recommendin. L5-S1 decompressive laminectomy and microdiscectomy 2. Follow up with PCP for surgical clearance 3. Review of surgical risks and benefits as well as an educational packet on the proposed surgical procedure. Risks: All surgical procedures come with inherent risks, including those related to positioning, anesthesia, intraoperative findings, and postoperative complications. It is important to understand that surgery does not come with any guarantee of a successful outcome as complications and adverse events are always possible. The patient was given a handout in office today discussing the surgical procedure and risks associated with the intervention, both of which were discussed with the patient. These risks include but are not limited to the following: * Experiencing same, different or even worse symptoms in back, neck, arms, or legs compared to before surgery. * Requiring further surgery or other forms of treatment presently or at some time in the future at same or other levels of the intended spine surgery. * On an extreme but fortunately relatively rare basis severe complication such as blindness, stroke, heart attack, temporary and/or permanent nerve injury, paralysis, coma, or may occur, sometimes without known explanation. * Surgical complications may include but are not limited to risk of infe ction, fluid accumulation in the surgical dissection site, including a seroma or hematoma, that requires additional surgery, wound drainage, bleeding, new numbness or weakness, vision changes/loss, spinal fluid leakage, non-healing and/or infected incision, headaches, difficulty or inability to swallow, hoarseness, hemopneumothorax, pneumothorax, impotence, retrograde ejaculation, vaginal dryness; injury to nerves, spinal cord, blood vessels, lymphatics or other vital organs (i.e., bowel injury, injury to the great vessels); heterotopic bone formation; complications related to the hardware such as screws, rods, cages including misplaced hardware, device failure, instrumentation at the wrong spine level, hardware fracture/breakage, or hardware loosening; vertebral failure of the spinal column above or below the newly placed hardware; retained surgical instrumentations or devices and the n eed for further surgery. * Medical risks of the planned spine surgery include but are not limited to generalized Infections to the whole body or local areas outside of the surgical site (sepsis), heart attack, bleeding, anaphylaxis, meningitis, seizure, epilepsy, hearing loss, burn clement, laceration of the head or other areas of the body, bruising, hypersensitivity of the skin, bladder over distension; allergic reaction; shoulder injury related to positioning; fat, blood and air clots to other areas of the body like heart, lungs, brain; failure of internal organs such as lungs, kidneys, liver and excessive bleeding. If blood transfusions are necessary, note that transfusions may cau se intolerance reactions such as anaphylaxis or other complex reactions. * Despite best efforts, the results of spine surgery might not heal in terms of bone, soft tissues such as skin, fascia, ligaments, and joints. Additionally, in order to achieve best possible results, spine surgery may be carried out beyond the initially planned levels and involve decompression, fusion including insertion of hardware at levels other than the original intended area of surgical interest change some portions of the procedure in order to ensure the best possible outcomes. * With spine surgery and spinal fusion, there are different off label uses of instrumentation (devices, implants and hardware) as well as biological substances (bone morphogenic proteins, demineralized bone matrix) as well as using extra bone from allograft sources (i.e. cadaver bone) or autograft (iliac crest bone, ribs, or the spine itself). The patient has been given information about these practices and their inherent risks and benefits. * [facility] is an educational center that serves as a training facility for neurosurgical and orthopedic spine residents and fellows. Residents are physicians who are completing their surgical intensive training following medical school. They assist in the operating room with direct supervision of the attending surgeons. Omega are surgeons who have completed their training and eligible for board certification. They have opted for an elective year of more specialized training in their field. They assist in the operating room under the supervision of the attending surgeons. Physician assistants are medically trained surgical providers who function in the outpatient, inpatient, and operating room setting under the direct supervision of the attending surgeon. * [facility] has multiple operating rooms with single and overlapping rooms running daily. They currently function under the required guidelines as produced by the [facility] Finance Committee with regards to the overlapping rooms and will continue to comply with changes to this policy as they occur. The requirements include and are complied with as follows: (1) the critical portions of the overlapping rooms will not occur at the same time, (2) the attending physician will be physically present during the critical portions of the procedure and immediately available during the entire case, and (3) a back-up attending is designated should the primary attending not be immediately available. The patient has had a chance to review all the listed information, has been given print outs detailing this information, and has had all his/her questions answered to their satisfaction. It was my pleasure to have seen and examined Yamile Lopez. In our visit today w e have had a chance to go over my understanding of our patient's current condition, the natural course history without intervention and various interventional options. Questions were invited and answered, and the patient wishes to proceed as outlined above. I have seen and examined the patient for 25 minutes and we have spent more than 50% of the time in repeat and detailed counseling about the patient's condition, its natural course history with out and as much as can be predicted with surgery and re-review of various surgical treatment options. In conclusion, Yamile Lopez requested we proceed with the above suggested surgery and are willing to accept risks and limitations of the suggested surgery as nature of the disease process and our best attempts at treatment for the condition. Thank you again for allowing us to be part of your patient's care. Please don't hesitate to contact me if you have any further questions. Signed and authenticated by: Ashvin Conti DO [facility] [address], [address] [address]
[2020-09-18] MEDS: FAMOTIDINE 20 MG TAB PO SCH ×2 (08:23→22:42)
[2020-09-18] MEDS: GABAPENTIN 300 MG CAP PO SCH ×3 (08:23→22:42)
[2020-09-18] MEDS: PARoxetine 20 MG TAB PO SCH (08:23)
[2020-09-18] MEDS: MELOXICAM 7.5 MG TAB PO SCH (08:23)
[2020-09-18] MEDS: tiZANidine 4 MG TAB PO SCH ×3 (08:23→22:46)
[2020-09-18] MEDS: predniSONE 10 MG TAB PO SCH (08:23)
[2020-09-18 10:39] LABS: Basophils # (A) 0.1 k/uL (0-0.2); Basophils % (A) 1 %; Eosinophils # (A) 0.2 k/uL (0-0.7); Eosinophils % (A) 3 %; HCT 38.8 % (34.0-46.0); HGB 12.9 gm/dL (11.4-16.0); Lymphocytes # (A) 2.5 k/uL (1.0-4.8); Lymphocytes % (A) 29 %; MCH 33.4 pg (25.0-35.0); MCHC 33.3 g/dL (31.0-37.0); MCV 100.3 fL (80.0-100.0); Mean Platelet Volume 6.2; Monocytes # (A) 0.6 k/uL (0-1.0); Monocytes % (A) 7 %; Neutrophils # (A) 5.1 k/uL (1.3-7.7); Neutrophils % (A) 58 %; Platelet Count 312 k/uL (150-450); RBC 3.87 m/uL (3.80-5.40); RDW 12.4 % (11.5-15.5); WBC 8.8 k/uL (3.8-10.6)
[2020-09-18 10:46] LABS: African American GFR (CKD) >90 (>60 ml/min/1.73 sqM); Anion Gap 4 mmol/L; Blood Urea Nitrogen 16 mg/dL (7-17); Calcium 8.4 mg/dL (8.4-10.2); Carbon Dioxide 26 mmol/L (22-30); Chloride 106 mmol/L (98-107); Glucose 87 mg/dL (74-99); Non-African American GFR(CKD) >90 (>60 ml/min/1.73 sqM); Potassium 4.3 mmol/L (3.5-5.1); Sodium 136 mmol/L (137-145)
--- NOTE | 2020-09-18 13:50 | P.PN ---
Subjective Progress Note Date: 09/18/20 Patient pleasant 34-year-old the female with history of 4 chronic low back pain and herniated disc came in with uncontrolled pain patient is supposed to get a back surgery by Dr. Munoz today, the surgeon is not available at this time patient is unable to get surgery. Patient is comparing of severe 9/10 pain debilitating unable to do anything at home with the radiculopathy predominantly in the left leg and weakness which started last night in the left leg. Patient is already on steroids at this time. Patient denied any saddle anesthesia follow bladder incontinence. During her last hospital physician patient did get the epidural steroid injection. Pain management will be consulted again. Joann oseguera does have leukocytosis without any evidence of sepsis. 09/17/2020 Patient is seen and evaluated and follow-up and continues to have intractable low back pain which is chronic in nature. Patient states her pain is being managed and is currently about a 6 out of 10 on the pain scale. Patient is scheduled to undergo surgery with Ortho in the morning of the left L5-S1 microdiscectomy. Patient currently tolerating diet with intermittent periods of nausea and denies any vomiting. Patient denies any dysuria loss of bowel or bladder and has been getting up to the bathroom and back to bed. Review of systems: Constitutional: No reports of fatigue, fever, or chills Cardiovascular: No reports of chest pain or palpitations Respiratory: No reports of shortness of breath or cough GI: Reports intermittent nausea, with no reports of vomiting, or diarrhea : No reports of dysuria or retention Neurovascular: No reports of weakness or numbness All medications have been reviewed 09/18/2020 Patient seen in follow-up with no acute overnight issues. Patient scheduled to undergo surgery with orthopedics this afternoon. She continues to have back pain and rates her pain an 8 out of 10 at this time. Patient is lying in bed and has been nothing by mouth since midnight. Patient has been getting up to use the bathroom. Currently no reports of chest pain, shortness of breath, or palpitations. Patient is afebrile. No reports of nausea or vomiting noted. White blood count improved and is 8.8, current hemoglobin is 12.9. Sodium today is 136, potassium is 4.3, creatinine is 0.70. Objective - Vital Signs Vital signs: Vital Signs Temp 98.0 F 09/18/20 04:33 Pulse 90 09/18/20 04:33 Resp 16 09/18/20 08:31 BP 106/72 09/18/20 04:33 Pulse Ox 97 09/18/20 04:33 Intake & Output 09/17/20 09/18/20 09/18/20 18:59 06:59 18:59 Other: Voiding Method Toilet Toilet # Voids 2 1 - Exam GENERAL: The patient is alert and oriented x3, not in any acute distress. Well developed, well nourished. HEENT: Pupils are round and equally reacting to light. EOMI. No scleral icterus. No conjunctival pallor. Normocephalic, atraumatic. No pharyngeal erythema. No thyromegaly. CARDIOVASCULAR: S1 and S2 present. No murmurs, rubs, or gallops. PULMONARY: Chest is clear to auscultation, no wheezing or crackles. ABDOMEN: Soft, nontender, nondistended, normoactive bowel sounds. No palpable organomegaly. MUSCULOSKELETAL: No joint swelling or deformity. EXTREMITIES: No cyanosis, clubbing, or pedal edema. NEUROLOGICAL: Generalized weakness although walking. Patient has positive straight leg raising test. Although she is able to raise her left leg little bit SKIN: No rashes. Multiple tattoos noted to upper extremities - Labs CBC & Chem 7: 09/18/20 10:09 09/18/20 10:09 Labs: Abnormal Lab Results - Last 24 Hours (Table) 09/18/20 09/18/20 Range/Units 10:09 10:09 MCV 100.3 H (80.0-100.0) fL Sodium 136 L (137-145) mmol/L Assessment and Plan Assessment: -Chronic low back pain with possible disc prolapse: Orthopedic surgery following and planning and L5-S1 microdiscectomy this afternoon. Pain management consult currently pending -Complaints of weakness in the left leg: Neurology following recommending outpatient EMG -Leukocytosis secondary to steroids she is taking at home, improved -Nicotine use: Counseling was provided -DVT prophylaxis with Lovenox which is currently being held for surgery -GI prophylaxis with Pepcid PLan: Continue current pain management. Patient currently nothing by mouth and will be having surgery with orthopedic this afternoon. Will continue to monitor closely and await surgical report. Further recommendations to follow.
--- NOTE | 2020-09-18 15:30 | P.PN ---
Subjective Progress Note Date: 09/18/20 Patient was seen for a follow-up. Patient was laying comfortably in the bed, however when I entered the room, patient does complain of pain. States it is 05/08 now. She is getting Dilaudid 1 mg every 3 hours, gabapentin, Percocet. Without medication it goes 08/08. Objective - Vital Signs Vital signs: Vital Signs Temp 98.9 F 09/18/20 13:32 Pulse 87 09/18/20 13:32 Resp 17 09/18/20 15:00 BP 108/71 09/18/20 13:32 Pulse Ox 99 09/18/20 13:32 Intake & Output 09/17/20 09/18/20 09/18/20 18:59 06:59 18:59 Other: Voiding Method Toilet Toilet # Voids 2 1 2 - Exam Mental status, speech and language functions are normal. Detailed motor testing Deferred. Patient looks comfortable, although complains of pain 05/08. - Labs CBC & Chem 7: 09/18/20 10:09 09/18/20 10:09 Labs: Abnormal Lab Results - Last 24 Hours (Table) 09/18/20 09/18/20 Range/Units 10:09 10:09 MCV 100.3 H (80.0-100.0) fL Sodium 136 L (137-145) mmol/L Assessment and Plan Assessment: * Lumbar radiculopathy, due to herniated disc L5-S1 level, possible left S1 root involvement based upon the history. Her examination is completely nonfocal, with preserved ankle reflexes, bilaterally. * Lumbar degenerative disc disease with annular tear and disc bulging. * Tobacco use Plan: * Continue gabapentin 600 mg 3 times a day. * Continue Mobic 15 mg daily * Pain medication on board, patient on Percocet, and now also on Dilaudid. * Continue Zanaflex 4 mg 3 times a day muscle relaxer. * PT OT. * Consider EMG and nerve conduction study of left lower extremity as outpatient. * Patient to undergo lumbar spinal decompressive surgery today. * Neurology will sign off. Please call neurology if any concerns.
[2020-09-18] MEDS ORDERED: IV FLUID CONTINUATION 1,000 ML IV ONE (16:06)
[2020-09-18] MEDS ORDERED: ONDANSETRON 4 MG/2 ML VIAL IVP ONE (16:14)
[2020-09-18] MEDS ORDERED: TRANEXAMIC ACID 1,000 MG in SODIUM CHLORIDE 0.9% 100 ML IVPB ONE ×2 (17:02→18:02)
[2020-09-18] MEDS ORDERED: LIDOCAINE 0.5%-EPI 1:200,000 50 ML VIAL SQ ONE (18:03)
[2020-09-18] MEDS ORDERED: BUPIVACAINE (PF) 0.25% 30 ML VIAL SQ ONE (18:07)
[2020-09-18] MEDS ORDERED: GELATIN SPONGE,ABSORBABLE 1 GM POWDER TOPICAL ONE (18:07)
[2020-09-18] MEDS ORDERED: THROMBIN (BOVINE) 5,000 UNIT VIAL TOPICAL ONE (18:08)
[2020-09-18] MEDS ORDERED: LACTATED RINGERS 1,000 ML IV ONE (18:26)
[2020-09-18] MEDS ORDERED: methylPREDNISolone ACETATE 40 MG/ML 1 ML VIAL INTRAARTIC ONE (18:26)
[2020-09-18] MEDS ORDERED: VANCOMYCIN 1,000 MG VIAL MISCELLANE ONE (18:43)
--- NOTE | 2020-09-18 19:22 | P.PN ---
Progress Note - Text Progress Note Date: 09/18/20 BRIEF PROCEDURE NOTE PREOPERATIVE DX: L5-S1 HNP with LLE radiculopathy and weakness POSTOPERATIVE DX: Same PROCEDURE: L5-S1 laminotomy and microdiscectomy. Use of intraoperative microscope. SURGEON: Ashvin Conti DO ASSIST: PARAM [place]. Corbin Dempsey was present for the entire case and was necessary due to the complexity of the case. ANESTHESIA: GETA IMPLANTS: None EBL: 50 mL URINE: 0 mL FLUIDS: 1,000 mL DISPOSITION: Stable to PACU for recovery. See full dictated Operative Note for description of procedure.
[2020-09-18] MEDS: ONDANSETRON 4 MG/2 ML VIAL IVP PRN (19:30)
[2020-09-18] MEDS ORDERED: ACETAMINOPHEN IV (For NPO) 1,000 MG/100 ML VIAL IVPB ONE (19:41)
[2020-09-18] MEDS ORDERED: diphenhydrAMINE 50 MG/ML 1 ML VIAL IVP ONE (19:47)
[2020-09-18] MEDS: HYDROmorphone 0.5 MG/0.5 ML SYRINGE IVP PRN ×3 (20:00→22:47)
[2020-09-19] MEDS: oxyCODONE-APAP 5-325MG 1 EACH TAB PO PRN (01:03)
[2020-09-19] MEDS: ACETAMINOPHEN TAB 500 MG TAB PO SCH ×3 (01:10→12:36)
[2020-09-19] MEDS: HYDROmorphone 0.5 MG/0.5 ML SYRINGE IVP PRN (02:23)
[2020-09-19] MEDS: ONDANSETRON 4 MG/2 ML VIAL IVP PRN (04:46)
[2020-09-19] MEDS: LEVOTHYROXINE 25 MCG TAB PO SCH (05:43)
--- NOTE | 2020-09-19 07:48 | FL ---
Fluoroscopy History: L5-S1 DISCECTOMY L5-S1 DISCECTOMY. 17 SEC OF FLUORO 3 IMAGES SAVED
[2020-09-19 08:45] VITALS: BP 105/68; PULSE 84; RESP 18; TEMP 98.6
[2020-09-19] MEDS: FAMOTIDINE 20 MG TAB PO SCH (08:59)
[2020-09-19] MEDS: MELOXICAM 7.5 MG TAB PO SCH (08:59)
[2020-09-19] MEDS: GABAPENTIN 300 MG CAP PO SCH (08:59)
[2020-09-19] MEDS: PARoxetine 20 MG TAB PO SCH (09:00)
[2020-09-19] MEDS: predniSONE 10 MG TAB PO SCH (09:01)
[2020-09-19] MEDS: SODIUM CHLORIDE 0.9% 1,000 ML IV SCH (09:01)
[2020-09-19] MEDS: tiZANidine 4 MG TAB PO SCH (09:02)
--- NOTE | 2020-09-19 09:46 | P.PN ---
Subjective Progress Note Date: 09/19/20 Principal diagnosis: L5-S1 HNP, severe stenosis Pt doing well this AM. No more leg pain. Some incisional pain otherwise doing well. No new numbness/tingling. Up to bathroom. No issues. No f/c/sob/cp at this time. Objective - Vital Signs Vital signs: Vital Signs Temp 98.6 F 09/19/20 08:30 Pulse 84 09/19/20 08:30 Resp 18 09/19/20 08:30 BP 105/68 09/19/20 08:30 Pulse Ox 95 09/19/20 08:30 Intake & Output 09/18/20 09/19/20 09/19/20 18:59 06:59 18:59 Intake Total 1150 1460 Output Total 50 Balance 1150 1410 Weight 73.936 kg Intake: IV 1150 500 Oral 960 Output: Estimated Blood Loss 50 Other: Voiding Method Toilet # Voids 2 1 2 - Exam Neg SLR L neg contralateral SLR 5/5 DF/PF/EHL/FHL/SLR b/l with increased pain SILT L2-S1 2/4 distal pulses all Compartments soft Babinski neg b/l Hoffmans neg b/l No clonus CN II-XII grossly intact EOMI Heart RRR Lungs CTAB - Labs CBC & Chem 7: 09/18/20 10:09 09/18/20 10:09 Labs: Abnormal Lab Results - Last 24 Hours (Table) 09/18/20 09/18/20 Range/Units 10:09 10:09 MCV 100.3 H (80.0-100.0) fL Sodium 136 L (137-145) mmol/L Assessment and Plan Assessment: 34-year-old female L5-S1 disc herniation with left lower extremity radiculopathy, severe, left L5-S1 dermatomal deficit postoperative day 1 from L5-S1 laminotomy and microdiscectomy L4 5 annular tearing with disc bulging Plan: -Doing well from surgery okay for home today -Discharge instructions and discharge plan -Medications sent -Follow-up in 2 weeks in office
--- NOTE | 2020-09-19 15:30 | P.DS ---
Providers Date of admission: 09/17/20 10:24 Attending physician: Hai Carpenter Consults: 09/16/20 10:49 Consult Physician Routine Consulting Provider: Queta Kelly Consult Reason/Comments: left leg weakness Do you want consulting provider notified?: Yes 09/16/20 23:08 Consult Physician Routine Consulting Provider: Ashvin Conti Consult Reason/Comments: L5-S1 HNP, LLE Radiculopathy Do you want consulting provider notified?: Yes, Notify in am Primary care physician: [facility] Course: Patient pleasant 34-year-old the female with history of 4 chronic low back pain and herniated disc came in with uncontrolled pain patient is supposed to get a back surgery by Dr. Munoz today, the surgeon is not available at this time patient is unable to get surgery. Patient is comparing of severe 9/10 pain debilitating unable to do anything at home with the radiculopathy predominantly in the left leg and weakness which started last night in the left leg. Patient is already on steroids at this time. Patient denied any saddle anesthesia follow bladder incontinence. During her last hospital physician patient did get the epidural steroid injection. Pain management will be consulted again. Patient does have leukocytosis without any evidence of sepsis. 08/19/2020 Patient seen postop day 2 following L5-S1 laminotomy and microdiscectomy, patient reports she is doing well, . She is alert and appropriate, pain appears to be well controlled, reports she is looking forward to going home today. Review of systems: Constitutional: No fever, or chills Cardiovascular: No chest pain or palpitations Respiratory: No reports of shortness of breath or cough GI: Reports intermittent nausea, with no reports of vomiting, or diarrhea : No reports of dysuria or retention Neurovascular: No reports of weakness or numbness GENERAL: The patient is alert and oriented x3, not in any acute distress. Well developed, well nourished. HEENT: Pupils are round and equally reacting to light. EOMI. No scleral icterus. No conjunctival pallor. Normocephalic, atraumatic. No pharyngeal erythema. No thyromegaly. CARDIOVASCULAR: S1 and S2 present. No murmurs, rubs, or gallops. PULMONARY: Chest is clear to auscultation, no wheezing or crackles. ABDOMEN: Soft, nontender, nondistended, normoactive bowel sounds. No palpable organomegaly. MUSCULOSKELETAL: No joint swelling or deformity. EXTREMITIES: No cyanosis, clubbing, or pedal edema. NEUROLOGICAL: Alert and oriented 3, no focal deficits SKIN: No rashes. Multiple tattoos noted to upper extremities -Chronic low back pain with possible disc prolapse: Status post microdiscectomy by Dr. Sylvester 7, seen day 2 postop pain is controlled, and vomiting, tolerating activity, has been cleared for discharge by orthopedics with follow-up ou tpatient. Seen by pain management, she will continue Flexeril, [place] 5 as needed, prednisone taper and Neurontin at discharge. -Complaints of weakness in the left leg: Neurology following recommending outpatient EMG -Leukocytosis secondary to steroids she is taking at home, improved -Nicotine use: Counseling was provided -DVT prophylaxis with Lovenox which is currently being held for surgery -GI prophylaxis with Pepcid PLan: Discharge home, the patient follow-up with orthopedic surgery, neurology recommending outpatient follow-up for EMG. Muscle relaxers, prednisone taper, [place], Neurontin at discharge. Plan of care discussed with patient was agreeable. Patient Condition at Discharge: Good Plan - Discharge Summary Discharge Rx Participant: Yes New Discharge Prescriptions: New Cyclobenzaprine [Flexeril] 10 mg PO TID PRN 10 Days #40 tab PRN Reason: Spasms HYDROcodone/APAP 5-325MG [Centralia 5-325] 1 - 2 tab PO Q6HR PRN 7 Days #40 tab PRN Reason: Pain Continue PARoxetine HCL [Paxil] 20 mg PO DAILY Cyclobenzaprine [Flexeril] 10 mg PO HS Levothyroxine Sodium [Synthroid] 25 mcg PO DAILY predniSONE See Taper PO DAILY Gabapentin [Neurontin] 300 mg PO TID Discontinued HYDROcodone/APAP 5-325MG [Centralia 5-325] 1 tab PO Q8H PRN PRN Reason: Pain Discharge Medication List Cyclobenzaprine [Flexeril] 10 mg PO HS 08/18/20 [History] Levothyroxine Sodium [Synthroid] 25 mcg PO DAILY 08/18/20 [History] PARoxetine HCL [Paxil] 20 mg PO DAILY 08/18/20 [History] Gabapentin [Neurontin] 300 mg PO TID 09/15/20 [History] predniSONE See Taper PO DAILY 09/15/20 [History] Cyclobenzaprine [Flexeril] 10 mg PO TID PRN 10 Days #40 tab 09/19/20 [Rx] HYDROcodone/APAP 5-325MG [Central[place] 5-325] 1 - 2 tab PO Q6HR PRN 7 Days #40 tab 09/19/20 [Rx] Follow up Appointment(s)/Referral(s): Riccardo Mercedes PAC [PHYSICIAN SALES REPRESENTATIVE [employer]] - 2 Weeks (Patient may follow-up with Riccardo Mercedes PA-C or Dr. Helio Munoz at [facility] in 2 weeks following discharge. ) Stefany Caldera MD [Primary Care Provider] - 1-2 days Ashvin Conti DO [Doctor of Osteopathic Medicine] - 2 Weeks Patient Instructions/Handouts: Acute Low Back Pain (ED) Activity/Diet/Wound Care/Special Instructions: Patient will be admitted 1. Avoid excessive bending, twisting, and lifting activities 2. Avoid lifting greater than 10 Spine Discharge and Recovery Instructions Date of Surgery: 09/18/2020 Diagnosis: L5-S1 disc herniation Procedure: L5-S1 laminotomy with microdiscectomy Medications: See list All medication refills should be obtained through your primary care doctor or your clinic spine surgeon. Please discuss prescription refills at your follow up appointment. Do not call the hospital for medication refills. Dressing: Leave your dressing in place for a total of 5 days post operatively. Then you may remove your dressing and leave open to air. Keep the area clean and if not able to keep area clean, then cover with sterile gauze and tape. Showering: You may shower 3 days after your procedure allowing soap and water to run over incision. Do not scrub. Do not soak. Blot dry. Follow up: Please confirm a follow up appointment with your surgeon 3 weeks post operatively. Please make an appointment to follow up with your PCP in 1-2 weeks after surgery for evaluation 3 phase, 3-week plan POST OP WEEKS 1-3 1. Lifting/carrying/pushing/pulling limited to less than 5 pounds. 2. Do not sit for longer than 15 minutes at one time. Get up and walk around. Prolonged sitting is NOT advised. If you lay down, see if you can tolerate laying down on you front (belly side) 3. Walk for periods of 15 minutes = 1 mile but no longer; do it multiple times times each day. 4.Ice your low back after activity. POST OP WEEKS 3-6 1. Lifting limited to less than 20 pounds. 2. Do not sit for longer than 30 minutes at a time. Frequently change positions. Use a sit-to stand workstation or take frequent breaks from sitting if you have returned to work. 3. Walk for 30 minutes each day. If possible, do these three or more times a day POST OP WEEKS 6+ At your 6-week appointment we will give you a physical therapy referral to focus on a core stabilization and strengthening program. You should also work on leg & buttock strengthening, hamstring & quadriceps stretching, and continue a low impact aerobic activity program such as swimming, walking, or riding a stationary bicycle. During the initial 6 weeks after your surgery, you are at the highest risk of re-injuring your spine. You should generally avoid BLTs (bending, lifting and twisting combination motions) and follow the above guidelines to reduce the chance of reinjury. You can anticipate post op appointments in our office at approximately 3 weeks and 6 weeks after your surgery. INCISION CARE: If your incision is not draining you do NOT need to cover it with a dressing. Keep your incision clean, dry and intact. In most cases, we apply skin glue, jenny or sutures to the incision at the time of surgery. This will be like a crust or have the appearance of a scab and will fall off in time on its own. The stitches or jenny need to be removed at 3 weeks post op appointment. You may begin to shower 3 days after surgery (this allows the glue to preciado well). However, please avoid scrubbing the incision site or peeling off any of the skin glue. This will ensure optimal healing of your incision. Also, during this time avoid soaking the incision area in water - this includes swimming pools, hot tubs or baths. No ointments, lotions or oils on the incision until your surgeon allows. Leave jenny, sutures or glue in place. Neurological dysfunction that comes on suddenly can also be a sign of a stroke. Below some common symptoms of a stroke are listed: B - balance difficulty such as sudden onset walking or leaning to one side - NEW E - eye problem such as sudden double vision or trouble seeing on one side - NEW F - Facial weakness or numbness on one side - NEW A - Arm or leg weakness or numbness on one side - NEW S - Slurred speech or difficulty with word finding - NEW T - Time is BRAIN! Call 911 as soon as you recognize these symptoms Diet: Consume a regular diet rich in vegetables and lean protein such as chicken or fish. You should consume in a ratio of approximately 20% fats|40% carbohydrates|40%protein. Vegetables, sweet potatoes, brown rice or quinoa are examples of good carbohydrates. Chips, white bread, cookies and sweets/sugar are examples of bad carbohydrates. Limit your bad carbs, go wild with good carbs. "Life's Simple 7" Guidelines as per [place] [employer] These will help you reclaim your life after surgery and compounder helper in your recovery, keeping in mind your restrictions. (1) Get Active. Physical activity can help people lose weight, control high blood pressure and cholesterol, feel emotionally better, and sleep better. (2) Control Cholesterol. Avoid a diet high in saturated fat, trans fat, & cholesterol. Limit whole milk & cream, ice cream, butter, egg yolks, processed meats (like sausage and hot dogs), and fatty meats. Choose healthy foods that are low in saturated fat, trans fat and cholesterol which include: Fruits and vegetables, fiber rich grain products (like whole grain pasta and brown rice), lean meat such as chicken, fish, nuts, seeds, and legumes. (3) Eat Better. Eat small portions. Shop at the grocery with a list and do not stray from it. Tips for a healthy diet include: Limit sodium intake to less than 1500mg daily, avoid prepackaged, processed, and fast foods, choose a diet rich in fruits, vegetables, and whole grain, high fiber foods, and limit saturated & cholesterol in your diet. (4) Manage Blood Pressure. If you have high blood pressure, you should have a cuff at home so that you can check your blood pressure regularly. Be sure you have a good cuff. An arm one is generally better than a wrist one. Bring the cuff to a doctor's appointment to validate that the measurements that your cuff are taking are accurate. Take your blood pressure twice daily when you are sitting down and relaxing. Record the numbers in a log and bring this log with you to your doctors' appointments. (5) Lose Weight if your BMI is above 25. A healthy BMI is between 19-25. To calculate Your BMI, you may use a Standard BMI Calculator on the NIH BMI website: <www.nhlbi.nih.gov/guidelines/obesity/BMI/bmicalc.htm>. Weigh oneself daily. If you are overweight, set a goal to lose weight. A pound a week loss if needed is a good target. (6) Reduce Blood Sugar. Limit foods and liquids with "added sugars." (Added sugars include sucrose, fructose, glucose, maltose, dextrose, high fructose corn syrup, corn syrup, concentrated fruit juice and honey). (7) Stop Smoking. If you smoke, quitting smoking is one of the best things that you can do for your health. Smoking increases your risk of heart attack, stroke, and peripheral vascular disease, which is a build-up of plaque in your arteries. Please discard all the cigarettes and lighters in your house. Have a plan for what you will do when you have the urge to smoke. Direct and second- hand smoke shortens your life as well as the lives of your family, friends and others around you. For your health and the health of those around you, please consider quitting! Proper Bending Body Mechanics: Maintain a wide stance with one foot slightly in front of the other. Keep your back straight. Bend utilizing the strength in your hips and knees. Do not bend at the waist. Maintain the lifted object at your waist-level close to your body. Avoid lifting weight that causes immediately pain or pain anywhere in the body afterwards. Smoking/Nicotine If there was ever one thing that you could do to increase your overall health, decrease your risk of cardiovascular problems by about 39% the second you make the choice, it is to STOP SMOKING. Your body's most instant gratification is the second you stop smoking. We have all heard the studies, read the articles but it is true, smoking is extremely bad for your overall health, and moreover it is detrimental to your bone health. Nicotine, IN ANY FORM, kills bone cells, prevents your body from healing fractur es, and significantly prolongs healing after surgery. In spine surgery specifically, it increases your risk of not healing your bones to create a fusion and increases your risk of having a revision surgery due to this up to 60%. I know it is hard. I know it feels impossible. But there are ways. Take control of your life. We are here to help you through it. And when you are ready, ask us and we can direct you to help if you desire. Use the START Plan to Quit Smoking (please visit the Helpguide.org website listed below for more information): S = Set a quit date. Choose a date within the next 2 weeks, so you have enough time to prepare without losing your motivation to quit. If you mainly smoke at work, quit on the weekend, so you have a few days to adjust to the change. T = Tell family, friends, and co-workers that you plan to quit. Let your friends and family in on your plan to quit smoking and tell them you need their support and encouragement to stop. Look for a quit brigido who wants to stop smoking as well. You can help each other get through the rough times. A = Anticipate and plan for the challenges you'll face while quitting. Most people who begin smoking again do so within the first 3 months. You can help yourself make it through by preparing ahead for common challenges, such as nicotine withdrawal and cigarette cravings. R = Remove cigarettes and other tobacco products from your home, car, and work. Throw away all your cigarettes (no emergency pack!), lighters, ashtrays, and matches. Wash your clothes and freshen up anything that smells like smoke. Shampoo your car, clean your drapes and carpet, and steam your furniture. T = Talk to your doctor about getting help to quit. Your doctor can prescribe medication to help with withdrawal and suggest other alternatives. If you can't see a doctor, you can get many products over the counter at your local pharmacy or grocery store, including the nicotine patch, nicotine lozenges, and nicotine gum. Resources for Quitting Smoking: <https://www.[place].gov/documents/[facility]/Quit_Tobacco_Resources_for_patients_313 480_7.pdf> Supplementation: Take recommended dosages of Vitamin D and Calcium to help fortify your bones and help them to heal. See your health maintenance packet for dosages and recommended levels. DVT/VTE prophylaxis: You will be given compression stockings from the hospital. Wear these daily for the first two weeks after surgery. You may take them off at night. You may be prescribed a medication to help thin your blood. Take this as directed. If you are not prescribed this medication, early and frequent ambulation has been shown to be the best prophylaxis to deep vein thrombosis and sequelae related to this event. Discharge Disposition: HOME WITH HOME HEALTH SERVICES
--- NOTE | 2020-09-19 17:40 | OP ---
OPERATIVE REPORT DATE OF SERVICE: 09/18/2020. PREOPERATIVE DIAGNOSIS: L5-S1 disk herniation with severe mL S1 radiculopathy dermatomal deficit and weakness. POSTOPERATIVE DIAGNOSIS: L5-S1 disk herniation with severe mL S1 radiculopathy dermatomal deficit and weakness. PROCEDURES PERFORMED: 1. L5-S1 laminotomy decompression with medial facetectomy and microdiskectomy. 2. Use of intraoperative microscope. ANESTHESIA: General endotracheal. ESTIMATED BLOOD LOSS: 50 mL. FLUIDS: Urine output 0 mL. Fluids 1000 mL. COMPLICATIONS: None. DISPOSITION: Stable to the postoperative care unit. INDICATIONS FOR PROCEDURE: This is a 34-year-old female who presented to [facility] for continued low back pain. The patient is a well-known patient of Dr. Munoz who has a known left L5- S1 disk herniation. She has been seen in the observation unit at the hospital several different times including at 08/19, as well as 08/20 and 09/16/2020. She has been prescribed a prednisone taper and as well as muscle relaxer, pain control, and gabapentin. However, none of these had controlled her symptoms. She was scheduled for surgery with Dr. Munoz. Unfortunately, he fell ill, and was unable to perform the surgery. She did get rescheduled for 10/07/2020. However, her pain has become significantly worse out of control with left lower extremity radiculopathy, continued issues with radiculopathy, weakness as well as dermatomal deficits. She has tried injections in her spine as well, which have not helped her pain at all and she is unable to perform any activities of daily living secondary to her severe pain that she is having. She did not have any saddle anesthesia. Has no urinary or bladder incontinence. However, she has been unable to work due to her symptoms. The patient was seen and examined and I agree with her assessment previously made of L5- S1 disk herniation with disk extrusion, severe S1 nerve displacement and radicular pain. I discussed with the patient her different options and at this point, the patient would like surgical intervention, which I think is necessary at this time. The patient was seen, evaluated, and risks discussed as documented in the chart. The patient was seen and examined preoperatively. All preoperative protocols followed. The patient was given a weight based dose of Ancef in the form of 2 g IVPB. The patient was ready and willing to proceed with the procedure. The site was marked and risks and benefits were discussed as well. OPERATIVE COURSE: The patient was brought to the operative suite but the department of anesthesia. While on her bed supine, she was drifted off to sleep and general endotracheal intubation was performed. Once confirmation of line placement and ventilation, the patient was carefully transferred to a prone [facility] table. Her arms were placed on arm boards in the up and out position 90/90. Special attention was paid to the wrists, elbows, axilla, chest, hips, knees, ankles and feet, which were all padded very well. SCDs were placed on bilateral lower extremities. Once prone, we confirmed again that there was good ventilation and lines were running. Operative briefing was performed and all parties in agreement and ready to proceed. The patient's lumbar spine was then exposed. C-arm was used for bio marking of the patient. This was then outlined with 10/10 drapes. The patient's lumbar spine was then prepped and draped in normal sterile fashion. Time- out performed. All parties in agreement with the procedure to be performed. A skin incision was made over the previously marked incision and dissection taken down to the patient's level sacral fascia which was identified. Meticulous hemostasis ensued. Subperiosteal dissection was then taken over the L5 lamina and the L5- S1 joints identified and preserved. Once this was accomplished on the left-hand side, a midline retractor was placed in the form of versa Trac. This allowed good visualization of the left hand lamina. A laminotomy and medial facetectomy were then performed using a high-speed varsha. Kerrison rongeur was used to widen this laminotomy. The ligamentum flavum was then released in this area and this allowed for good visualization of the dural sac as well as the nerve root which was extremely inflamed and displaced posteriorly. This was then carefully moved to the side to allow visualization of a large disk herniation and extruded fragment which was anterior to the thecal sac and the S1 nerve root. Nerve root retractor was used to hold these medially as we were able to use a micro pituitary to remove the extruded fragments of disk. A long-handled 15 blade was then used to make a transverse incision in the anulus of the L5-S1 disk, which was then accessed. The micro pituitary was then used to remove any loose fragments of disk in this region. We then ensured decompression medially and over the top of the dura toward the foramina on the right-hand side of L5- S1. This over the top decompression was performed using Kerrison rongeur is very carefully as well as patties to protect the dura. Once this was accomplished, and diskectomy and had been performed, copious amounts of irrigation were used in the form of normal saline 3 L. A Valsalva was performed to 40 mmHg and there was no CSF leak noted. Decadron 40 mg/mL was then placed in the wound. Surgicel placed over the dura and nerve root. The wound was then inspected and in good order. The lumbosacral fascia was then closed with #1 Vicryl in a simple fashion followed by 0 Vicryl in the subcutaneous tissue, 2-0 Vicryl in the subcu tissue, followed by a 3-0 Monocryl in the subcuticular tissue. This was then cleaned with alcohol and dressed sterilely with exofin tape and glue followed by Telfa, 4x4s and Tegaderms. The patient was then transferred back to her hospital bed very carefully. She was awakened by the Department of Anesthesia. She was then extubated and transferred to the postoperative care unit in stable condition having tolerated the procedure very well. No complications. MMODL / IJN: [id number] / PRIETO
== END 2020-09-19 15:45 | disposition home or self-care (01) | DRG 520 ==
LOC: EC 18:36 → 1SOBS 22:14 → 5NMEDONC 09-17 07:20 → OBSVTOIN 09-17 10:24
PROVIDERS: ADMIT Internal Medicine; ATTEND Internal Medicine
PROC: 0SB40ZZ Excision of Lumbosacral Disc, Open Approach (ICD-10-PCS; principal; 2020-09-19)
DX: M51.17 Intervertebral disc disorders with radiculopathy, lumbosacral region (principal); M47.27 Other spondylosis with radiculopathy, lumbosacral region; M48.07 Spinal stenosis, lumbosacral region; M48.061 Spinal stenosis, lumbar region without neurogenic claudication; G89.29 Other chronic pain; F41.9 Anxiety disorder, unspecified; D72.829 Elevated white blood cell count, unspecified; T38.0X5A Adverse effect of glucocorticoids and synthetic analogues, initial encounter; F17.210 Nicotine dependence, cigarettes, uncomplicated; Z71.6 Tobacco abuse counseling; Z79.890 Hormone replacement therapy; Z79.899 Other long term (current) drug therapy; Z88.5 Allergy status to narcotic agent; Z88.8 Allergy status to other drugs, medicaments and biological substances; Z82.5 Family history of asthma and other chronic lower respiratory diseases; Z82.49 Family history of ischemic heart disease and other diseases of the circulatory system; Z83.3 Family history of diabetes mellitus; Z83.79 Family history of other diseases of the digestive system; Z82.69 Family history of other diseases of the musculoskeletal system and connective tissue
CPT/HCPCS: 72020; 80048; 80053; 81003; 81025; 84703; 85025; 96372; 99284

== ENCOUNTER → 2020-11-25 | Outpatient (CLI) | payer OTHER ==
--- NOTE | 2020-11-26 07:46 | US ---
EXAMINATION TYPE: US pelvic complete DATE OF EXAM: 11/25/2020 COMPARISON: NONE CLINICAL HISTORY: 34-year-old female N92.6 Irregular menstruation, unspecified. Promotional Demonstrator notes: Antonio hallman had irregular cycle this month only, started, stopped, restarted, etc TECHNIQUE: TA. Transabdominal sonographic images of the pelvis were acquired. Date of LMP: 11/13/2020 FINDINGS: EXAM MEASUREMENTS: Uterus: 9.3 x 4.9 x 3.3 cm Endometrial Stripe: 1.1 cm Right Ovary: 2.9 x 1.9 x 2.1 cm Left Ovary: 2.7 x 2.2 x 2.2 cm 1. Uterus: Retroverted and otherwise wnl 2. Endometrium: wnl 3. Right Ovary: wnl 4. Left Ovary: wnl 5. Bilateral Adnexa: wnl 6. Posterior cul-de-sac: wnl IMPRESSION: Retroverted uterus. Some follicular change is seen within both ovaries. No specific abnormality on tr ansabdominal scanning.
== END | disposition home or self-care (01) ==
LOC: RADUSWWP 16:19
PROVIDERS: ATTEND Family Medicine
DX: N85.4 Malposition of uterus (principal); R93.89 Abnormal findings on diagnostic imaging of other specified body structures
CPT/HCPCS: 76856

== ENCOUNTER 2021-08-10 10:23 | Emergency (ER) | payer OTHER ==
[2021-08-10 10:42] VITALS: BP 108/69; PULSE 87; RESP 18; TEMP 98.2
[2021-08-10] MEDS ORDERED: MORPHINE SULFATE 4 MG/ML SYRINGE IM STA (11:32)
--- NOTE | 2021-08-10 11:32 | ED ---
General Adult HPI - General Chief complaint: Back Pain/Injury Stated complaint: low back pain Time Seen by Provider: 08/10/21 11:02 Source: patient, RN notes reviewed Mode of arrival: ambulatory Limitations: no limitations - History of Present Illness Initial comments: Patient 35-year-old female presented to the emergency room today with chief complaint of increased lower back pain. Does admit to some radiation of pain going down the legs. She states isn't numbness tingling sensation both left and right legs down to the toes. She started last night. Patient does admit to a history of a previous surgery back in August 2020. Patient states she's had pain down the left leg in the past. She denies any bowel or bladder incontinence retention. Denies any saddle anesthesia. Patient does admit to tingling sensation was different so her reason for coming here to the ER today. She states that she's tried Flexeril, gabapentin, ibuprofen at home. Patient states she's been in touch with the orthopedic office and has an appointment but is not for several weeks. Patient denies any recent fever, chills, shortness of breath, chest pain, back pain, abdominal pain, nausea or vomiting, headaches or visual changes, or any other complaints. - Related Data Home Medications Medication Instructions Recorded Confirmed Cyclobenzaprine [Flexeril] 10 mg PO HS 08/18/20 09/15/20 Levothyroxine Sodium [Synthroid] 25 mcg PO DAILY 08/18/20 09/15/20 PARoxetine HCL [Paxil] 20 mg PO DAILY 08/18/20 09/15/20 Gabapentin [Neurontin] 300 mg PO TID 09/15/20 09/15/20 predniSONE See Taper PO DAILY 09/15/20 09/15/20 Previous Rx's Medication Instructions Recorded Cyclobenzaprine [Flexeril] 10 mg PO TID PRN 10 Days #40 tab 09/19/20 HYDROcodone/APAP 5-325MG [[place] 1 - 2 tab PO Q6HR PRN 7 Days #40 09/19/20 5-325] tab HYDROcodone/APAP 5-325MG [[place] 1 tab PO Q6HR PRN 3 Days #12 tab 08/10/21 5-325] dexAMETHasone 0.75 mg PO DIRECTED #12 tablet 08/10/21 methocarbamoL [Robaxin] 1,000 mg PO TID PRN 5 Days #30 tab 08/10/21 Allergies Allergy/AdvReac Type Severity Reaction Status Date / Time ketorolac [From Toradol] Allergy Rash/Hives Verified 08/10/21 10:38 tramadol Allergy Rash/Hives Verified 08/10/21 10:38 Review of Systems ROS Statement: Those systems with pertinent positive or pertinent negative responses have been documented in the HPI. ROS Other: All systems not noted in ROS Statement are negative. Past Medical History Additional Past Medical History / Comment(s): herniated disc with chronic lower back pain radiating down legs, history of tingling and pain za wrists and hands (resolved), hives History of Any Multi-Drug Resistant Organisms: None Reported Past Surgical History: Back Surgery Past Anesthesia/Blood Transfusion Reactions: No Reported Reaction Additional Past Anesthesia/Blood Transfusion Reaction / Comment(s): Patient has never had a transfusion or anesthesia. Past Psychological History: Anxiety Smoking Status: Current every day smoker Past Alcohol Use History: Occasional Past Drug Use History: None Reported - Past Family History Father Family Medical History: Asthma, Hypertension Additional Family Medical History / Comment(s): back issues with sciatica and herniated discs Mother History Unknown: Yes Brother(s) Additional Family Medical History / Comment(s): crohns, borderline diabetic Sister(s) Family Medical History: No Reported History Son(s) Family Medical History: No Reported History General Exam - General Exam Comments Initial Comments: General: The patient is awake and alert, in no distress, and does not appear acutely ill. Eye: extra-ocular movements are intact. No nystagmus. There is normal conjunctiva bilaterally. No signs of icterus. Ears, nose, mouth and throat: There are moist mucous membranes and no oral lesions. Neck: The neck is supple. Cardiovascular: There is a regular rate and rhythm. No murmur, rub or gallop is appreciated. Respiratory: respirations are non-labored, breath sounds are equal. Musculoskeletal: Normal ROM, no tenderness. Strength 5/5. Sensation intact. Neurological: A&O x 3. CN II-XII intact, There are no obvious motor or sensory deficits. Coordination appears grossly intact. Speech is normal. Skin: Skin is warm and dry and no rashes or lesions are noted. Psychiatric: Cooperative, appropriate mood & affect, normal judgment. Limitations: no limitations Course Vital Signs 08/10/21 10:38 Temperature 98.2 F Pulse Rate 87 Respiratory 18 Rate Blood Pressure 108/69 O2 Sat by Pulse 100 Oximetry Medical Decision Making - Medical Decision Making Patient seen here in emergency room. Vitals are stable. Patient does admit to a history of some chronic back problems is seen a surgeon in the past had recent surgery in August 2020. Patient does state that over the last today she's had some numbness tingling sensation going down the bilateral leg. No bowel or bladder incontinence or retention. No saddle anesthesia. It was discussed with patient about close follow-up with her orthopedic surgeon. Was discussed about trying to obtain MRI. Patient is advised concerning symptoms and signs that she should return to the emergency room. At this time she feels comfortable being discharged home. Patient will be given prescription for dexamethasone along with a short prescription of pain medication and muscle relaxer. Is advised to return to emergency room symptoms increase or worsen or for any concerns. She states understanding and is in agreement. Disposition Clinical Impression: Acute low back pain Disposition: HOME SELF-CARE Condition: Good Instructions (If sedation given, give patient instructions): Acute Low Back Pain (ED) Additional Instructions: Please use medication as discussed. Please follow-up with family doctor/critical care specialist in the next 2 days of symptoms have not improved. Please return to emergency room if the symptoms increase or worsen or for any other concerns. Prescriptions: dexAMETHasone 0.75 mg PO DIRECTED #12 tablet HYDROcodone/APAP 5-325MG [[place] 5-325] 1 tab PO Q6HR PRN 3 Days #12 tab PRN Reason: Pain methocarbamoL [Robaxin] 1,000 mg PO TID PRN 5 Days #30 tab PRN Reason: pain Is patient prescribed a controlled substance at d/c from ED?: Yes If prescribed controlled substance>3 days was MAPS reviewed?: Prescribed <3 Days Referrals: Stefany Caldera MD [Primary Care Provider] - 1-2 days Ashvin Conti DO [Doctor of Osteopathic Medicine] - 1-2 days Time of Disposition: 11:31
== END 2021-08-10 12:12 | disposition home or self-care (01) ==
LOC: EC 10:23
DX: M54.5 Low back pain (principal); F41.9 Anxiety disorder, unspecified; F17.200 Nicotine dependence, unspecified, uncomplicated; Z79.890 Hormone replacement therapy; Z79.899 Other long term (current) drug therapy
CPT/HCPCS: 96372; 99283; J2270

== ENCOUNTER 2021-08-10 16:08 | Emergency (ER) | payer OTHER ==
[2021-08-10 16:27] VITALS: RESP 20
[2021-08-10] MEDS ORDERED: methylPREDNISolone SOD SUCCI 125 MG/2 ML VIAL IM ONE (16:37)
[2021-08-10] MEDS ORDERED: HYDROmorphone 1 MG/ML 1 ML SYRINGE IM STA (16:37)
--- NOTE | 2021-08-10 16:58 | ED ---
Back Pain HPI - General Chief Complaint: Back Pain/Injury Stated Complaint: Back Pain Time Seen by Provider: 08/10/21 16:28 Source: patient, RN notes reviewed Limitations: no limitations - History of Present Illness Initial Comments: Patient is a 35-year-old female that presents to emergency room complaining of low back pain with bilateral radicular symptoms. Patient notes that she was seen this morning for the same exact complaint was given 4 mg of morphine and discharged home with follow-up to her back surgeon. Patient notes that she did have back surgery with Dr. Conti in August of last year. Patient denied any worsening or new symptoms. She notes that she tried calling his office after her discharge is morning but was unable to get through and came back to the ER for symptomatically control. She denied any chest pain shortness breath headache nausea vomiting diarrhea constipation fever fatigue chills. - Related Data Home Medications Medication Instructions Recorded Confirmed Cyclobenzaprine [Flexeril] 10 mg PO HS 08/18/20 09/15/20 Levothyroxine Sodium [Synthroid] 25 mcg PO DAILY 08/18/20 09/15/20 PARoxetine HCL [Paxil] 20 mg PO DAILY 08/18/20 09/15/20 Gabapentin [Neurontin] 300 mg PO TID 09/15/20 09/15/20 predniSONE See Taper PO DAILY 09/15/20 09/15/20 Previous Rx's Medication Instructions Recorded Cyclobenzaprine [Flexeril] 10 mg PO TID PRN 10 Days #40 tab 09/19/20 HYDROcodone/APAP 5-325MG [[place] 1 - 2 tab PO Q6HR PRN 7 Days #40 09/19/20 5-325] tab HYDROcodone/APAP 5-325MG [[place] 1 tab PO Q6HR PRN 3 Days #12 tab 08/10/21 5-325] dexAMETHasone 0.75 mg PO DIRECTED #12 tablet 08/10/21 methocarbamoL [Robaxin] 1,000 mg PO TID PRN 5 Days #30 tab 08/10/21 Allergies Allergy/AdvReac Type Severity Reaction Status Date / Time ketorolac [From Toradol] Allergy Rash/Hives Verified 08/10/21 16:27 tramadol Allergy Rash/Hives Verified 08/10/21 16:27 Review of Systems ROS Statement: Those systems with pertinent positive or pertinent negative responses have been documented in the HPI. ROS Other: All systems not noted in ROS Statement are negative. Past Medical History Additional Past Medical History / Comment(s): herniated disc with chronic lower back pain radiating down legs, history of tingling and pain za wrists and hands (resolved), hives History of Any Multi-Drug Resistant Organisms: None Reported Past Surgical History: Back Surgery Past Anesthesia/Blood Transfusion Reactions: No Reported Reaction Additional Past Anesthesia/Blood Transfusion Reaction / Comment(s): Patient has never had a transfusion or anesthesia. Past Psychological History: Anxiety Smoking Status: Current every day smoker Past Alcohol Use History: Occasional Past Drug Use History: None Reported - Past Family History Father Family Medical History: Asthma, Hypertension Additional Family Medical History / Comment(s): back issues with sciatica and herniated discs Mother History Unknown: Yes Brother(s) Additional Family Medical History / Comment(s): crohns, borderline diabetic Sister(s) Family Medical History: No Reported History Son(s) Family Medical History: No Reported History General Exam Limitations: no limitations General appearance: alert, in no apparent distress Head exam: Present: atraumatic, normocephalic, normal inspection Eye exam: Present: normal appearance, PERRL, EOMI. Absent: scleral icterus, conjunctival injection, periorbital swelling Neck exam: Absent: normal inspection Respiratory exam: Present: normal lung sounds bilaterally. Absent: respiratory distress, wheezes, rales, rhonchi, stridor Cardiovascular Exam: Present: regular rate, normal rhythm, normal heart sounds. Absent: systolic murmur, diastolic murmur, rubs, gallop, clicks Extremities exam: Present: normal inspection, full ROM, normal capillary refill. Absent: tenderness, pedal edema, joint swelling, calf tenderness Back exam: Present: normal inspection. Absent: tenderness Neurological exam: Present: alert, oriented X3, CN II-XII intact Psychiatric exam: Present: normal affect, normal mood Skin exam: Present: warm, dry, intact, normal color. Absent: rash Course Vital Signs 08/10/21 16:24 Temperature 98.4 F Pulse Rate 95 Respiratory 20 Rate Blood Pressure 100/65 Medical Decision Making - Medical Decision Making 35-year-old female with chronic low back pain. 1 mg of Dilaudid, 125 mg of Solu-Medrol ordered. Patient was informed that she went to follow-up with her surgeon and primary care for chronic management of pain. She is better with this option just wanted mild relief on the ER. Case discussed with Dr. rocha Disposition Clinical Impression: Intractable low back pain Disposition: HOME SELF-CARE Condition: Stable Instructions (If sedation given, give patient instructions): Acute Low Back Pain (ED) Additional Instructions: Please return to the Emergency Department if symptoms worsen or any other concerns. Follow-up with primary care and back surgeon this is possible. Continue take at home medications as prescribed. Is patient prescribed a controlled substance at d/c from ED?: No Referrals: Stefany Caldera MD [Primary Care Provider] - 1-2 days Time of Disposition: 16:58
[2021-08-10 18:17] VITALS: BP 110/62; PULSE 92; TEMP 98.2
== END 2021-08-10 17:42 | disposition home or self-care (01) ==
LOC: EC 16:08
DX: M54.50 Low back pain, unspecified (principal); F41.9 Anxiety disorder, unspecified; F17.200 Nicotine dependence, unspecified, uncomplicated; Z88.5 Allergy status to narcotic agent; Z88.1 Allergy status to other antibiotic agents
CPT/HCPCS: 99283 ×2; 96372 ×3; J2270; J2930; J1170

== ENCOUNTER 2021-08-19 17:12 | Emergency (ER) | payer OTHER ==
[2021-08-19 18:54] VITALS: TEMP 99.1
[2021-08-19] MEDS ORDERED: HYDROmorphone 1 MG/ML 1 ML SYRINGE IM STA ×2 (19:24→21:19)
[2021-08-19] MEDS ORDERED: DIAZEPAM 5 MG/ML 2 ML INJ IM ONE (19:25)
--- NOTE | 2021-08-19 19:42 | ED ---
General Adult HPI - General Chief complaint: Neck Pain/Injury Stated complaint: lower back pain Time Seen by Provider: 08/19/21 19:04 Source: patient Mode of arrival: ambulatory Limitations: no limitations - History of Present Illness Initial comments: 35 year-old female patient presents to the emergency department for evaluation of low back pain with radiation down both legs, worse on the left. States pain goes down to about knee level. Has had some numbness/tingling to the left leg. Denies saddle anesthesia or loss of bowel or bladder control. Denies any fever or chills. Denies abdominal pain. Patient did have back surgery with Dr. Conti in 08/2020. States she had a breif period of improved pain after the surgery but then her pain started worsening. States that her symptoms have not changed though her pain is worsening. She was seen here on 08/10, given pain medication, and instructed to follow up. She did see her primary care physician who did give her prescription for norco, she has been taking it without relief. She is also taking gabapentin and flexeril. They did order MRI but they are waiting for approval from insurance company. She has appointment with Dr. Conti on Monday. Patient denies any recent rash, cough, shortness of breath, chest pain, vomiting, diarrhea, constipation, weakness, hematuria, dysuria, urinary urgency, urinary frequency, headache, visual changes, or any other complaints. - Related Data Home Medications Medication Instructions Recorded Confirmed Levothyroxine Sodium [Synthroid] 50 mcg PO DAILY 08/10/21 08/10/21 PARoxetine HCL [Paxil] 30 mg PO DAILY 08/10/21 08/10/21 Previous Rx's Medication Instructions Recorded HYDROcodone/APAP 5-325MG [[place] 1 tab PO Q6HR PRN 3 Days #12 tab 08/10/21 5-325] dexAMETHasone 0.75 mg PO DIRECTED #12 tablet 08/10/21 methocarbamoL [Robaxin] 1,000 mg PO TID PRN 5 Days #30 tab 08/10/21 Diazepam [Valium] 5 mg PO TID PRN 3 Days #9 tab 08/19/21 Allergies Allergy/AdvReac Type Severity Reaction Status Date / Time ketorolac [From Toradol] Allergy Rash/Hives Verified 08/19/21 18:54 tramadol Allergy Rash/Hives Verified 08/19/21 18:54 Review of Systems ROS Statement: Those systems with pertinent positive or pertinent negative responses have been documented in the HPI. ROS Other: All systems not noted in ROS Statement are negative. Past Medical History Additional Past Medical History / Comment(s): herniated disc with chronic lower back pain radiating down legs, history of tingling and pain za wrists and hands (resolved), hives History of Any Multi-Drug Resistant Organisms: None Reported Past Surgical History: Back Surgery Past Anesthesia/Blood Transfusion Reactions: No Reported Reaction Additional Past Anesthesia/Blood Transfusion Reaction / Comment(s): Patient has never had a transfusion or anesthesia. Past Psychological History: Anxiety Smoking Status: Current every day smoker Past Alcohol Use History: Occasional Past Drug Use History: None Reported - Past Family History Father Family Medical History: Asthma, Hypertension Additional Family Medical History / Comment(s): back issues with sciatica and herniated discs Mother History Unknown: Yes Brother(s) Additional Family Medical History / Comment(s): crohns, borderline diabetic Sister(s) Family Medical History: No Reported History Son(s) Family Medical History: No Reported History General Exam Limitations: no limitations General appearance: alert, in no apparent distress, other (This is a well- developed, well-nourished adult female patient in no acute distress. Vital signs upon presentation are temperature 99.1F, pulse 108, respirations 19, blood pressure 111/71, pulse ox 95% on room air per) ENT exam: Present: normal exam, normal oropharynx, mucous membranes moist Respiratory exam: Present: normal lung sounds bilaterally. Absent: respiratory distress, wheezes, rales, rhonchi, stridor Cardiovascular Exam: Present: regular rate, normal rhythm, normal heart sounds. Absent: systolic murmur, diastolic murmur, rubs, gallop, clicks GI/Abdominal exam: Present: soft, normal bowel sounds. Absent: distended, tenderness, guarding, rebound, rigid Extremities exam: Present: normal inspection, full ROM, normal capillary refill, other (Skin to the lower extremities is pink, warm, dry. Cap refill less than 3 seconds. Pedal and posttibial pulses 2+.). Absent: tenderness, pedal edema, joint swelling, calf tenderness Back exam: Present: normal inspection. Absent: vertebral tenderness Neurological exam: Present: alert, oriented X3, CN II-XII intact Psychiatric exam: Present: normal affect, normal mood Skin exam: Present: warm, dry, intact, normal color. Absent: rash Course Vital Signs 08/19/21 08/19/21 08/19/21 18:48 20:00 21:43 Temperature 99.1 F Pulse Rate 108 H 95 72 Respiratory 19 16 16 Rate Blood Pressure 111/71 110/70 111/80 O2 Sat by Pulse 95 98 97 Oximetry Medical Decision Making - Medical Decision Making 35 year-old female patient presents to the emergency department for evaluation of low back pain radiating down her legs. She has no concerning symptoms for cauda equina. She is afebrile with normal vital signs. This is the patient's third visit for similar symptoms. We did perform CT lumbar spine which showed mulilevel bulging discs, degenerative disc disease. I did discuss the case with oncall soil fertility extension specialist Dr. Schwartz, he works with her surgeon Dr. Conti. I went over the case with him. He feels it is safe to discharge patient home at this time. She is instructed to call office in the morning to possibly see Dr. Conti. She does have an appointment with Dr. Sylvester than on Monday. She is awaiting MRI from her primary care physician. She'll be started on Valium and instructed to continue her home medications for pain. Return parameters discussed in detail. She verbalizes understanding and agrees with this plan. Case discussed with my attending Dr. Flowers. - Radiology Data Radiology results: report reviewed, image reviewed CT of the lumbar spine was obtained. Report was reviewed in its entirety. Impression by Dr. Baxter showed postop changes noted on the distal disease, spinal stenosis, spinal curvature and foraminal encroachment as described Disposition Clinical Impression: Bulging of lumbar intervertebral disc, Lumbar radiculopathy Disposition: HOME SELF-CARE Condition: Good Instructions (If sedation given, give patient instructions): Lumbar Radiculopathy (ED) Additional Instructions: Apply warm moist heat to the low back. Perform gentle range of motion exercises . Avoid prolonged sitting or standing or lying down. Take medications as directed. Call Dr. Sylvester's office in the morning for possible appointment. Continue all medications as directed. Return for any new, worsening, or concerning symptoms. CT scan of lumbar spine here showed bulging disks from L1-L2, L2-L3, L3-L4, L4- L5. You received IM doses of Dilaudid, Valium, and Benadryl here in the emergency department. Prescription for Valium to replace flexeril. Prescriptions: Diazepam [Valium] 5 mg PO TID PRN 3 Days #9 tab PRN Reason: Muscle Spasm Is patient prescribed a controlled substance at d/c from ED?: Yes When asked, does pt state using other controlled substances?: Yes If prescribed controlled substance>3 days was MAPS reviewed?: Prescribed <3 Days Referrals: Edilma Vickers MD [Primary Care Provider] - 1-2 days Ashvin Conti DO [Doctor of Osteopathic Medicine] - 1-2 days Time of Disposition: 21:27
--- NOTE | 2021-08-19 20:15 | CT ---
EXAMINATION TYPE: CT lumbar spine wo con DATE OF EXAM: 08/19/2021 COMPARISON: CT lumbar spine 08/18/2020 HISTORY: Low back pain, leg weakness and pain-bilaterally CT DLP: 677.9 mGycm Automated exposure control for dose reduction was used. An unenhanced CT of the lumbar spine was performed. Bone and soft tissue window settings are submitt ed as well as coronal and sagittal reconstructions. FINDINGS: Laminectomy change present at L5-S1. There is a spinal curvature. Loss of disc height present at L5-S 1. Bone island present in the right ilium is noted on previous exam. L1-L2: There is mild posterior broad-based disc bulge causing anterior mass effect on the thecal sac. No significant foraminal encroachment or spinal stenosis. L2-L3: Posterior broad-based disc bulge causes anterior mass effect on the thecal sac. No significant spinal stenosis or foraminal encroachment. L3-L4: Posterior disc bulge causes mild anterior mass effect on the thecal sac. No significant spinal stenosis suspected. No foraminal encroachment. L4-L5: Posterior broad-based disc bulge causes anterior mass effect on the thecal sac. No significant foraminal encroachment. There is some mild to moderate spinal stenosis suspected. L5-S1: Posterior extension endplate disc complex is noted, circumferential extension causes bilateral foraminal encroachment, no significant spinal stenosis IMPRESSION: Postop changes. Degenerative disc disease, spinal stenosis, spinal curvature in foraminal encroachmen t as described.
[2021-08-19 20:21] VITALS: RESP 16
[2021-08-19] MEDS ORDERED: diphenhydrAMINE 50 MG/ML 1 ML VIAL IM STA (21:19)
[2021-08-19 21:44] VITALS: BP 111/80; PULSE 72
== END 2021-08-19 21:50 | disposition home or self-care (01) ==
LOC: EC 17:12
DX: M51.36 Other intervertebral disc degeneration, lumbar region (principal); M54.16 Radiculopathy, lumbar region; F17.200 Nicotine dependence, unspecified, uncomplicated; Z79.890 Hormone replacement therapy; Z79.899 Other long term (current) drug therapy
CPT/HCPCS: 96372 ×5; 99284 ×2; 72131; J1200; J3360; J1170

== ENCOUNTER 2021-09-02 17:51 | Emergency (ER) | payer OTHER ==
[2021-09-02 18:30] VITALS: RESP 18; TEMP 98.1
[2021-09-02 19:41] VITALS: PULSE 78
[2021-09-02] MEDS ORDERED: HYDROmorphone 1 MG/ML 1 ML SYRINGE IM STA (19:59)
[2021-09-02] MEDS ORDERED: DIAZEPAM 5 MG/ML 2 ML INJ IM ONE (20:00)
--- NOTE | 2021-09-02 20:35 | ED ---
General Adult HPI - General Chief complaint: Extremity Injury, Lower Stated complaint: back pain/blurred vision Time Seen by Provider: 09/02/21 19:00 Source: patient Mode of arrival: ambulatory Limitations: no limitations - History of Present Illness Initial comments: 35-year-old female patient presented to the emergency department today for evaluation of increased her chronic low back pain after a fall. States she was walking behind her mother when her mother fell into her causing her to fall landing on her buttocks. States that she has not felt a pop in her right low back and now has increased pain. She does have pain radiation down both legs chronically though she states this seems more painful after the fall. She took her home pain medications last around noon. She denies any loss of bowel or bladder control. Denies saddle anesthesia. Denies hitting her head or losing consciousness with the fall. Denies any other injuries. Patient denies any headache, chest pain, shortness of breath, dizziness, weakness, abdominal pain, nausea, vomiting, or difficulties with bowel movements or urination. - Related Data Home Medications Medication Instructions Recorded Confirmed Levothyroxine Sodium [Synthroid] 50 mcg PO DAILY 08/10/21 08/10/21 PARoxetine HCL [Paxil] 30 mg PO DAILY 08/10/21 08/10/21 Previous Rx's Medication Instructions Recorded HYDROcodone/APAP 5-325MG [[place] 1 tab PO Q6HR PRN 3 Days #12 tab 08/10/21 5-325] dexAMETHasone 0.75 mg PO DIRECTED #12 tablet 08/10/21 methocarbamoL [Robaxin] 1,000 mg PO TID PRN 5 Days #30 tab 08/10/21 Diazepam [Valium] 5 mg PO TID PRN 3 Days #9 tab 08/19/21 Allergies Allergy/AdvReac Type Severity Reaction Status Date / Time ketorolac [From Toradol] Allergy Rash/Hives Verified 09/02/21 18:30 tramadol Allergy Rash/Hives Verified 09/02/21 18:30 Review of Systems ROS Statement: Those systems with pertinent positive or pertinent negative responses have been documented in the HPI. ROS Other: All systems not noted in ROS Statement are negative. Past Medical History Additional Past Medical History / Comment(s): herniated disc with chronic lower back pain radiating down legs, history of tingling and pain za wrists and hands (resolved), hives History of Any Multi-Drug Resistant Organisms: None Reported Past Surgical History: Back Surgery Past Anesthesia/Blood Transfusion Reactions: No Reported Reaction Additional Past Anesthesia/Blood Transfusion Reaction / Comment(s): Patient has never had a transfusion or anesthesia. Past Psychological History: Anxiety Smoking Status: Current every day smoker Past Alcohol Use History: Occasional Past Drug Use History: None Reported - Past Family History Father Family Medical History: Asthma, Hypertension Additional Family Medical History / Comment(s): back issues with sciatica and herniated discs Mother History Unknown: Yes Brother(s) Additional Family Medical History / Comment(s): crohns, borderline diabetic Sister(s) Family Medical History: No Reported History Son(s) Family Medical History: No Reported History General Exam Limitations: no limitations General appearance: alert, in no apparent distress, other (This is a well- developed, well-nourished adult female patient in no acute distress.) Eye exam: Present: normal appearance, PERRL, EOMI. Absent: scleral icterus, conjunctival injection, periorbital swelling ENT exam: Present: normal exam, normal oropharynx, mucous membranes moist Respiratory exam: Present: normal lung sounds bilaterally. Absent: respiratory distress, wheezes, rales, rhonchi, stridor Cardiovascular Exam: Present: regular rate, normal rhythm, normal heart sounds. Absent: systolic murmur, diastolic murmur, rubs, gallop, clicks GI/Abdominal exam: Present: soft, normal bowel sounds. Absent: distended, tenderness, guarding, rebound, rigid Back exam: Present: normal inspection, paraspinal tenderness (Right paralumbar), other (No ecchymosis or surface trauma noted.). Absent: vertebral tenderness Neurological exam: Present: alert, oriented X3, CN II-XII intact Psychiatric exam: Present: normal affect, normal mood Skin exam: Present: warm, dry, intact, normal color. Absent: rash Course Vital Signs 09/02/21 09/02/21 09/02/21 18:27 19:36 22:10 Temperature 98.1 F Pulse Rate 80 78 78 Respiratory 18 18 18 Rate Blood Pressure 105/71 114/67 110/87 O2 Sat by Pulse 95 92 L 99 Oximetry Medical Decision Making - Medical Decision Making 35-year-old female patient presents to the emergency department today for evaluation of increased low back pain after a fall. Physical examination revealed tenderness over the right lower back. She is neurovascularly and neurologically intact. No concerning symptoms or cauda equina. X-rays were obtained and were negative. She'll be discharged follow up with her primary care physician and her spinal surgeon for further evaluation as soon as possible. Return parameters were discussed in detail. She verbalizes understanding and agrees with this plan. My attending is Dr. Arauz. - Radiology Data Radiology results: report reviewed, image reviewed 5 views of the lumbosacral spine are obtained. Report was reviewed in its entirety. Impression by Dr. Jude Davey shows no acute process. Disposition Clinical Impression: Low back pain Disposition: HOME SELF-CARE Condition: Good Instructions (If sedation given, give patient instructions): Acute Low Back Pain (ED) Additional Instructions: Continue home medications for pain. Follow-up with her back specialist for further evaluation as soon as possible. Return for any new, worsening, or concerning symptoms. Is patient prescribed a controlled substance at d/c from ED?: No Referrals: Edilma Vickers MD [Primary Care Provider] - 1-2 days Time of Disposition: 21:53
--- NOTE | 2021-09-02 21:20 | XR ---
PROCEDURE: XR lumbosacral spine 5 VIEWS DATE AND TIME: 09/02/2021 8:47 PM CLINICAL INDICATION: PHH; Low back pain after fall/right side TECHNIQUE: Department protocol COMPARISON: None FINDINGS: There is no fracture or malalignment. Mild-moderate lower lumbar/lumbosacral spondylosis ch anges noted. The soft tissues are unremarkable. IMPRESSION: NO ACUTE PROCESS.
[2021-09-02 22:19] VITALS: BP 110/87
== END 2021-09-02 22:13 | disposition home or self-care (01) ==
LOC: EC 17:51
DX: M54.59 Other low back pain (principal); F41.9 Anxiety disorder, unspecified; F17.200 Nicotine dependence, unspecified, uncomplicated; Z79.52 Long term (current) use of systemic steroids; Z79.890 Hormone replacement therapy; Z79.899 Other long term (current) drug therapy; Z88.5 Allergy status to narcotic agent; Z88.8 Allergy status to other drugs, medicaments and biological substances; Z83.79 Family history of other diseases of the digestive system; Z83.3 Family history of diabetes mellitus; Z82.49 Family history of ischemic heart disease and other diseases of the circulatory system; W18.30XA Fall on same level, unspecified, initial encounter; X50.1XXA Overexertion from prolonged static or awkward postures, initial encounter
CPT/HCPCS: 99284 ×2; 96372 ×3; 72110; J3360; J1170

== ENCOUNTER 2021-09-08 20:50 | Emergency (ER) | payer OTHER ==
[2021-09-08] MEDS ORDERED: ORPHENADRINE 30 MG/ML 2 ML VIAL IM STA (22:54)
[2021-09-08] MEDS ORDERED: HYDROmorphone 0.5 MG/0.5 ML SYRINGE IM STA (22:54)
[2021-09-09] MEDS ORDERED: HYDROmorphone 0.5 MG/0.5 ML SYRINGE IM STA (00:13)
--- NOTE | 2021-09-09 00:16 | ED ---
General Adult HPI - General Chief complaint: Back Pain/Injury Stated complaint: Lower back pain Time Seen by Provider: 09/08/21 22:24 Source: patient Mode of arrival: wheelchair Limitations: no limitations - History of Present Illness Initial comments: 35-year-old female presents to the emergency room for back pain. Patient has a history of chronic lower back pain with herniated disks and pain radiating down her legs. Patient states that today her mom was falling and she went to catch her and she hurt her back. Patient did have an MRI done recently and is following up with orthopedics next week for an appointment. Patient denies bladder or bowel changes, saddle anesthesia, weakness of the legs, or fevers. Patient states that steroids, muscle relaxers, lidocaine patches do not work. Patient is ALLERGIC to Toradol.Patient has no other complaints at this time including shortness of breath, chest pain, abdominal pain, nausea or vomiting, h eadache, or visual changes. - Related Data Home Medications Medication Instructions Recorded Confirmed Levothyroxine Sodium [Synthroid] 50 mcg PO DAILY 08/10/21 08/10/21 PARoxetine HCL [Paxil] 30 mg PO DAILY 08/10/21 08/10/21 Previous Rx's Medication Instructions Recorded HYDROcodone/APAP 5-325MG [[place] 1 tab PO Q6HR PRN 3 Days #12 tab 08/10/21 5-325] dexAMETHasone 0.75 mg PO DIRECTED #12 tablet 08/10/21 methocarbamoL [Robaxin] 1,000 mg PO TID PRN 5 Days #30 tab 08/10/21 Diazepam [Valium] 5 mg PO TID PRN 3 Days #9 tab 08/19/21 Allergies Allergy/AdvReac Type Severity Reaction Status Date / Time ketorolac [From Toradol] Allergy Rash/Hives Verified 09/08/21 21:52 tramadol Allergy Rash/Hives Verified 09/08/21 21:52 Review of Systems ROS Statement: Those systems with pertinent positive or pertinent negative responses have been documented in the HPI. ROS Other: All systems not noted in ROS Statement are negative. Past Medical History Past Medical History: No Reported History Additional Past Medical History / Comment(s): herniated disc with chronic lower back pain radiating down legs, history of tingling and pain za wrists and hands (resolved), hives History of Any Multi-Drug Resistant Organisms: None Reported Past Surgical History: Back Surgery Past Anesthesia/Blood Transfusion Reactions: No Reported Reaction Additional Past Anesthesia/Blood Transfusion Reaction / Comment(s): Patient has never had a transfusion or anesthesia. Past Psychological History: Anxiety Smoking Status: Current every day smoker Past Alcohol Use History: Occasional Past Drug Use History: None Reported - Past Family History Father Family Medical History: Asthma, Hypertension Additional Family Medical History / Comment(s): back issues with sciatica and herniated discs Mother History Unknown: Yes Brother(s) Additional Family Medical History / Comment(s): crohns, borderline diabetic Sister(s) Family Medical History: No Reported History Son(s) Family Medical History: No Reported History General Exam Limitations: no limitations General appearance: alert, in no apparent distress Head exam: Present: atraumatic Eye exam: Present: normal appearance, PERRL, EOMI. Absent: scleral icterus, conjunctival injection ENT exam: Present: normal exam, mucous membranes moist Neck exam: Present: normal inspection, full ROM. Absent: tenderness Respiratory exam: Present: normal lung sounds bilaterally. Absent: respiratory distress, wheezes Cardiovascular Exam: Present: regular rate, normal rhythm, normal heart sounds GI/Abdominal exam: Present: soft, normal bowel sounds. Absent: distended, tenderness Extremities exam: Present: normal capillary refill (Capillary refill less than 2 seconds, DP pulse 2+ left lower extremity.) Back exam: Absent: vertebral tenderness Course Vital Signs 09/08/21 21:52 Temperature 98.9 F Pulse Rate 77 Respiratory 20 Rate Blood Pressure 105/70 O2 Sat by Pulse 97 Oximetry Medical Decision Making - Medical Decision Making Vitals are stable. Patient is well appearing. Patient was given pain medication. Patient did have some improvement as initially she was crying and on reevaluation she was relaxed, in no distress at all. Patient will follow up with her surgeon. She will return here for any worsening symptoms. Disposition Clinical Impression: Acute exacerbation of chronic low back pain, Lumbar radicular pain Disposition: HOME SELF-CARE Condition: Good Instructions (If sedation given, give patient instructions): Acute Low Back Pain (ED) Additional Instructions: Please follow up with your doctor in 1-2 days. Return to the ER for any worsening symptoms. today you were given; Dilauded 0.5 mg x 2 Norflex 60 mg Is patient prescribed a controlled substance at d/c from ED?: No Referrals: Edilma Vickers MD [Primary Care Provider] - 1-2 days Ashvin Conti DO [Doctor of Osteopathic Medicine] - 1-2 days Time of Disposition: 00:14
[2021-09-09 00:41] VITALS: BP 102/67; PULSE 61; RESP 18; TEMP 98.1
== END 2021-09-09 00:30 | disposition home or self-care (01) ==
LOC: EC 20:50
DX: G89.29 Other chronic pain (principal); M54.50 Low back pain, unspecified; M54.16 Radiculopathy, lumbar region; F41.9 Anxiety disorder, unspecified; F17.200 Nicotine dependence, unspecified, uncomplicated; Z79.52 Long term (current) use of systemic steroids; Z79.890 Hormone replacement therapy; Z79.899 Other long term (current) drug therapy; Z83.3 Family history of diabetes mellitus; Z82.49 Family history of ischemic heart disease and other diseases of the circulatory system; Z83.79 Family history of other diseases of the digestive system; Z88.5 Allergy status to narcotic agent; Z88.8 Allergy status to other drugs, medicaments and biological substances
CPT/HCPCS: 96372 ×4; 99283 ×2; J2360; J1170 ×2

== ENCOUNTER 2021-09-13 20:09 | Emergency (ER) | payer OTHER ==
[2021-09-13 20:46] VITALS: RESP 18
[2021-09-13] MEDS ORDERED: MORPHINE SULFATE 4 MG/ML SYRINGE IM STA (23:57)
[2021-09-13] MEDS ORDERED: ORPHENADRINE 30 MG/ML 2 ML VIAL IM STA (23:57)
--- NOTE | 2021-09-14 00:02 | ED ---
Back Pain HPI - General Chief Complaint: Back Pain/Injury Stated Complaint: Back Pain Time Seen by Provider: 09/13/21 23:22 Source: patient, RN notes reviewed, old records reviewed Mode of arrival: ambulatory Limitations: no limitations - History of Present Illness Initial Comments: Patient is a 35-year-old female with history of chronic low back pain, presenting to emergency Department with complaints of an acute on chronic back pain. Patient states she had to help her mother get up which in turn caused her back to flare up. She states she's been having some radicular symptoms down the back of her left leg since then. She's tried her already prescribed medications but has not been helping. Patient has been here a number of times for similar complaint. She follows with Dr. Conti. Had a recent MRI of her back which I did review. She denies any bowel or bladder incontinence, no saddle paresthesias, no fevers or chills, no falls or trauma. She denies being . She has no further complaints at this time. Her vital signs are stable upon arrival. - Related Data Home Medications Medication Instructions Recorded Confirmed Levothyroxine Sodium [Synthroid] 50 mcg PO DAILY 08/10/21 08/10/21 PARoxetine HCL [Paxil] 30 mg PO DAILY 08/10/21 08/10/21 Previous Rx's Medication Instructions Recorded HYDROcodone/APAP 5-325MG [[place] 1 tab PO Q6HR PRN 3 Days #12 tab 08/10/21 5-325] dexAMETHasone 0.75 mg PO DIRECTED #12 tablet 08/10/21 methocarbamoL [Robaxin] 1,000 mg PO TID PRN 5 Days #30 tab 08/10/21 Diazepam [Valium] 5 mg PO TID PRN 3 Days #9 tab 08/19/21 Allergies Allergy/AdvReac Type Severity Reaction Status Date / Time ketorolac [From Toradol] Allergy Rash/Hives Verified 09/13/21 20:45 tramadol Allergy Rash/Hives Verified 09/13/21 20:45 Review of Systems ROS Statement: Those systems with pertinent positive or pertinent negative responses have been documented in the HPI. ROS Other: All systems not noted in ROS Statement are negative. Past Medical History Past Medical History: No Reported History Additional Past Medical History / Comment(s): herniated disc with chronic lower back pain radiating down legs, history of tingling and pain za wrists and hands (resolved), hives History of Any Multi-Drug Resistant Organisms: None Reported Past Surgical History: Back Surgery Past Anesthesia/Blood Transfusion Reactions: No Reported Reaction Additional Past Anesthesia/Blood Transfusion Reaction / Comment(s): Patient has never had a transfusion or anesthesia. Past Psychological History: Anxiety Smoking Status: Current every day smoker Past Alcohol Use History: Occasional Past Drug Use History: None Reported - Past Family History Father Family Medical History: Asthma, Hypertension Additional Family Medical History / Comment(s): back issues with sciatica and herniated discs Mother History Unknown: Yes Brother(s) Additional Family Medical History / Comment(s): crohns, borderline diabetic Sister(s) Family Medical History: No Reported History Son(s) Family Medical History: No Reported History General Exam - General Exam Comments Initial Comments: GENERAL: Patient is well-developed and well-nourished. Patient is nontoxic and in no acute distress. HEAD: Atraumatic, normocephalic. EYES: Pupils equal round and reactive to light, extraocular movements intact, sclera anicteric, conjunctiva are normal. Eyelids were unremarkable. ENT: Moist mucous membranes. NECK: Normal range of motion, supple without lymphadenopathy or JVD. LUNGS: Unlabored respirations. Breath sounds clear to auscultation bilaterally and equal. No wheezes rales or rhonchi. HEART: Regular rate and rhythm without murmurs, rubs or gallops. MUSCULOSKELETAL: Normal extremities with adequate strength and normal range of motion, no pitting or edema. No clubbing or cyanosis. Pain with palpation of the lumbar area, lumbar paraspinals, left greater than right. NEUROLOGICAL: Patient is alert and oriented x 3. Motor and sensory are also intact. Cranial nerves II through XII grossly intact. Symmetrical smile. Normal speech, normal gait. PSYCH: Normal mood, normal affect. SKIN: Warm, Dry, normal turgor, no rashes or lesions noted. Limitations: no limitations Course Vital Signs 09/13/21 20:44 Temperature 98.8 F Pulse Rate 91 Respiratory 18 Rate Blood Pressure 103/69 O2 Sat by Pulse 96 Oximetry Medical Decision Making - Medical Decision Making Patient is a 35-year-old female here with acute on chronic low back pain. She's been seen here number of times for similar complaint. She had recent MRI which I did review, no significant abnormality is other than degenerative changes. She has no acute neuro deficits on exam, no saddle paresthesia, no bladder or bowel incontinence. Patient does follow with Dr. Conti. She sees him in 2 days. Patient is requesting IV pain medicines. I discussed with her that that is not recommended, I will give her shot of pain meds and a shot of Norflex. She is stable for discharge. She can follow up with her surgeon. Return parameters were discussed with her and she verbalized understanding. Case discussed with Dr. Plata. Disposition Clinical Impression: Acute exacerbation of chronic low back pain Disposition: HOME SELF-CARE Condition: Stable Instructions (If sedation given, give patient instructions): Acute Low Back Pain (ED) Additional Instructions: Please return to the Emergency Department if symptoms worsen or any other concerns. Trial of heat and/or ice to the area. Continue with your already prescribed pain medications. Follow-up with your surgeon. Is patient prescribed a controlled substance at d/c from ED?: No Referrals: Edilma Vickers MD [Primary Care Provider] - 1-2 days Time of Disposition: 00:01
[2021-09-14 00:34] VITALS: BP 101/56; PULSE 66; TEMP 97.8
== END 2021-09-14 00:33 | disposition home or self-care (01) ==
LOC: EC 20:09
DX: G89.29 Other chronic pain (principal); F41.9 Anxiety disorder, unspecified; M54.50 Low back pain, unspecified; F17.200 Nicotine dependence, unspecified, uncomplicated; Z79.890 Hormone replacement therapy; Z79.899 Other long term (current) drug therapy
CPT/HCPCS: 99283 ×2; 96372 ×3; J2270; J2360

== ENCOUNTER 2021-10-21 17:26 | Emergency (ER) | payer OTHER ==
[2021-10-21 17:56] VITALS: TEMP 99
[2021-10-21] MEDS ORDERED: HYDROmorphone 1 MG/ML 1 ML SYRINGE IVP STA ×2 (18:14→19:40)
--- NOTE | 2021-10-21 19:51 | ED ---
General Adult HPI - General Chief complaint: Back Pain/Injury Stated complaint: lower back pain Time Seen by Provider: 10/21/21 18:08 Source: patient, RN notes reviewed Mode of arrival: ambulatory Limitations: physical limitation - History of Present Illness Initial comments: Patient is a 35-year-old female that presents to the emergency room complaining of low back pain. She notes she does have chronic low back pain and had surgery in August 2020. She notes that her abdomen pain medications which is Hobbs 7.5 is not touching the pain. She notes she does have a follow-up with her pain medicine doctor in a week. She notes that she is fine with insurance to get an MRI and epidural injections. Patient notes that insurance that she needs phys ical therapy first. She notes she has been told by several surgeons that they highly recommend not doing physical therapy as or make it worse. Patient was otherwise well-appearing in no apparent distress. She denied any chest pain first breath headache nausea vomiting diarrhea constipation fever fatigue chills. - Related Data Home Medications Medication Instructions Recorded Confirmed Levothyroxine Sodium [Synthroid] 50 mcg PO DAILY 08/10/21 08/10/21 PARoxetine HCL [Paxil] 30 mg PO DAILY 08/10/21 08/10/21 Previous Rx's Medication Instructions Recorded HYDROcodone/APAP 5-325MG [[place] 1 tab PO Q6HR PRN 3 Days #12 tab 08/10/21 5-325] dexAMETHasone 0.75 mg PO DIRECTED #12 tablet 08/10/21 methocarbamoL [Robaxin] 1,000 mg PO TID PRN 5 Days #30 tab 08/10/21 Diazepam [Valium] 5 mg PO TID PRN 3 Days #9 tab 08/19/21 HYDROcodone/APAP 10-325MG [[place] 1 tab PO Q6HR PRN 3 Days #12 tab 10/21/21 10-325] Allergies Allergy/AdvReac Type Severity Reaction Status Date / Time ketorolac [From Toradol] Allergy Rash/Hives Verified 10/21/21 17:56 tramadol Allergy Rash/Hives Verified 10/21/21 17:56 Review of Systems ROS Statement: Those systems with pertinent positive or pertinent negative responses have been documented in the HPI. ROS Other: All systems not noted in ROS Statement are negative. Past Medical History Past Medical History: No Reported History, Thyroid Disorder Additional Past Medical History / Comment(s): herniated disc with chronic lower back pain radiating down legs, history of tingling and pain za wrists and hands (resolved), hives History of Any Multi-Drug Resistant Organisms: None Reported Past Surgical History: Back Surgery Past Anesthesia/Blood Transfusion Reactions: No Reported Reaction Additional Past Anesthesia/Blood Transfusion Reaction / Comment(s): Patient has never had a transfusion or anesthesia. Past Psychological History: Anxiety Smoking Status: Current every day smoker Past Alcohol Use History: Occasional Past Drug Use History: None Reported - Past Family History Father Family Medical History: Asthma, Hypertension Additional Family Medical History / Comment(s): back issues with sciatica and herniated discs Mother History Unknown: Yes Brother(s) Additional Family Medical History / Comment(s): crohns, borderline diabetic Sister(s) Family Medical History: No Reported History Son(s) Family Medical History: No Reported History General Exam Limitations: physical limitation General appearance: alert, in no apparent distress Head exam: Present: atraumatic, normocephalic, normal inspection Eye exam: Present: normal appearance, PERRL, EOMI. Absent: scleral icterus, conjunctival injection, periorbital swelling ENT exam: Present: normal exam, mucous membranes moist Neck exam: Present: normal inspection Respiratory exam: Present: normal lung sounds bilaterally. Absent: respiratory distress, wheezes, rales, rhonchi, stridor Cardiovascular Exam: Present: regular rate, normal rhythm, normal heart sounds. Absent: systolic murmur, diastolic murmur, rubs, gallop, clicks GI/Abdominal exam: Present: soft, normal bowel sounds. Absent: distended, tenderness, guarding, rebound, rigid Extremities exam: Present: normal inspection, full ROM, normal capillary refill. Absent: tenderness, pedal edema, joint swelling, calf tenderness Back exam: Present: normal inspection, tenderness (Low back) Neurological exam: Present: alert, oriented X3 Psychiatric exam: Present: normal affect, normal mood Skin exam: Present: warm, dry, intact, normal color. Absent: rash Course Vital Signs 10/21/21 17:48 Temperature 99 F Pulse Rate 93 Respiratory 18 Rate Blood Pressure 112/73 O2 Sat by Pulse 98 Oximetry Medical Decision Making - Medical Decision Making 35-year-old female with chronic back pain, just requesting symptomatic relief. 1 mg of Dilaudid ordered for pain control. Upon reevaluation patient is doing well but wants more pain meds before going home. 1 more milligram of Dilaudid ordered. Hobbs tends sent to pharmacy for a three-day supply. Patient was informed of this and was informed that she does follow-up with her primary care and pain medicine specialist. Patient is agreeable to this plan. Case discussed with Dr. Jin. Disposition Clinical Impression: Intractable low back pain Disposition: HOME SELF-CARE Condition: Stable Instructions (If sedation given, give patient instructions): Acute Low Back Pain (ED) Additional Instructions: Please return to the Emergency Department if symptoms worsen or any other concerns. Take Hobbs 10 as prescribed. Hold the Hobbs 7.5. Follow-up with specialists as planned. Prescriptions: HYDROcodone/APAP 10-325MG [[place] 10-325] 1 tab PO Q6HR PRN 3 Days #12 tab PRN Reason: Pain Is patient prescribed a controlled substance at d/c from ED?: No Referrals: Edilma Vickers MD [Primary Care Provider] - 1-2 days Time of Disposition: 19:51
[2021-10-21 20:56] VITALS: BP 114/7; PULSE 81; RESP 17
== END 2021-10-21 20:55 | disposition home or self-care (01) ==
LOC: EC 17:26
DX: M54.50 Low back pain, unspecified (principal); F41.9 Anxiety disorder, unspecified; F17.200 Nicotine dependence, unspecified, uncomplicated; Z72.89 Other problems related to lifestyle
CPT/HCPCS: 99283; 96374; 96376; J1170

== ENCOUNTER 2021-11-01 20:42 | Emergency (ER) | payer OTHER ==
[2021-11-01 22:16] VITALS: RESP 18
[2021-11-01] MEDS ORDERED: HYDROmorphone 1 MG/ML 1 ML SYRINGE IM STA (23:17)
[2021-11-01] MEDS ORDERED: DIAZEPAM 5 MG/ML 2 ML INJ IM ONE (23:17)
--- NOTE | 2021-11-01 23:19 | ED ---
Back Pain HPI - General Chief Complaint: Back Pain/Injury Stated Complaint: lower back pain Time Seen by Provider: 11/01/21 23:05 Source: patient Limitations: no limitations - History of Present Illness Initial Comments: 35-year-old female patient presents to the emergency department today for evaluation of low back pain. She does have history of chronic back pain has had surgery in August 2020. States her pain never really goes away though tonight it seemed to be worsened usual. She reports radiation down the left leg. Denies numbness or tingling. Denies any saddle anesthesia or loss of bowel or bladder control. Denies any abdominal pain or fever. Denies any hematuria, dysuria, urinary frequency, urinary urgency. She denies any injury. She does have appointment coming up with a specialist Sukhjinder Turner. - Related Data Home Medications Medication Instructions Recorded Confirmed Levothyroxine Sodium [Synthroid] 50 mcg PO DAILY 08/10/21 08/10/21 PARoxetine HCL [Paxil] 30 mg PO DAILY 08/10/21 08/10/21 Previous Rx's Medication Instructions Recorded HYDROcodone/APAP 5-325MG [[place] 1 tab PO Q6HR PRN 3 Days #12 tab 08/10/21 5-325] dexAMETHasone 0.75 mg PO DIRECTED #12 tablet 08/10/21 methocarbamoL [Robaxin] 1,000 mg PO TID PRN 5 Days #30 tab 08/10/21 Diazepam [Valium] 5 mg PO TID PRN 3 Days #9 tab 08/19/21 HYDROcodone/APAP 10-325MG [[place] 1 tab PO Q6HR PRN 3 Days #12 tab 10/21/21 10-325] Allergies Allergy/AdvReac Type Severity Reaction Status Date / Time ketorolac [From Toradol] Allergy Rash/Hives Verified 11/01/21 22:17 tramadol Allergy Rash/Hives Verified 11/01/21 22:17 Review of Systems ROS Statement: Those systems with pertinent positive or pertinent negative responses have been documented in the HPI. ROS Other: All systems not noted in ROS Statement are negative. Past Medical History Past Medical History: No Reported History, Thyroid Disorder Additional Past Medical History / Comment(s): herniated disc with chronic lower back pain radiating down legs, history of tingling and pain za wrists and hands (resolved), hives History of Any Multi-Drug Resistant Organisms: None Reported Past Surgical History: Back Surgery Past Anesthesia/Blood Transfusion Reactions: No Reported Reaction Additional Past Anesthesia/Blood Transfusion Reaction / Comment(s): Patient has never had a transfusion or anesthesia. Past Psychological History: Anxiety Smoking Status: Current every day smoker Past Alcohol Use History: Occasional Past Drug Use History: Marijuana - Past Family History Father Family Medical History: Asthma, Hypertension Additional Family Medical History / Comment(s): back issues with sciatica and herniated discs Mother History Unknown: Yes Brother(s) Additional Family Medical History / Comment(s): crohns, borderline diabetic Sister(s) Family Medical History: No Reported History Son(s) Family Medical History: No Reported History General Exam Limitations: no limitations General appearance: alert, in no apparent distress, other (This is a well- developed, well-nourished adult female in no acute distress.) ENT exam: Present: normal exam, normal oropharynx, mucous membranes moist Respiratory exam: Present: normal lung sounds bilaterally. Absent: respiratory distress, wheezes, rales, rhonchi, stridor Cardiovascular Exam: Present: regular rate, normal rhythm, normal heart sounds. Absent: systolic murmur, diastolic murmur, rubs, gallop, clicks GI/Abdominal exam: Present: soft, normal bowel sounds. Absent: distended, tenderness, guarding, rebound, rigid Back exam: Present: normal inspection. Absent: vertebral tenderness Neurological exam: Present: alert, oriented X3, CN II-XII intact Psychiatric exam: Present: normal affect, normal mood Skin exam: Present: warm, dry, intact, normal color. Absent: rash Course Vital Signs 11/01/21 11/02/21 22:10 00:45 Temperature 98.6 F 98.3 F Pulse Rate 89 65 Respiratory 18 18 Rate Blood Pressure 105/66 99/51 O2 Sat by Pulse 96 Oximetry Medical Decision Making - Medical Decision Making 35-year-old female patient with past medical history significant for chronic back pain presents for evaluation of increased her usual symptoms. She is neurologically and neurovascularly intact. No new symptoms today. She has no concerning symptoms for cauda equina. Vital signs unremarkable. She is given pain medication discharged home to follow-up with her specialist that she has planned. Return parameters were discussed in detail. She verbalizes understanding and agrees with this plan. My attending is Dr. Plata. Disposition Clinical Impression: Chronic back pain Disposition: HOME SELF-CARE Condition: Good Instructions (If sedation given, give patient instructions): Back Pain (ED) Additional Instructions: Follow-up with your specialist for reevaluation as soon as possible. Return for any new, worsening, or concerning symptoms. Is patient prescribed a controlled substance at d/c from ED?: No Referrals: Edilma Vickers MD [Primary Care Provider] - 1-2 days Time of Disposition: 23:19
[2021-11-02 00:46] VITALS: BP 99/51; PULSE 65; TEMP 98.3
== END 2021-11-01 23:45 | disposition home or self-care (01) ==
LOC: EC 20:42
DX: M54.59 Other low back pain (principal); G89.29 Other chronic pain; E07.9 Disorder of thyroid, unspecified; F41.9 Anxiety disorder, unspecified; F17.200 Nicotine dependence, unspecified, uncomplicated; F12.90 Cannabis use, unspecified, uncomplicated; Z88.1 Allergy status to other antibiotic agents
CPT/HCPCS: 99283; 96372 ×2; J3360; J1170

== ENCOUNTER 2021-11-11 22:02 | Emergency (ER) | payer OTHER ==
[2021-11-11 22:36] VITALS: TEMP 98.4
--- NOTE | 2021-11-11 23:02 | ED ---
Dizziness HPI - General Chief Complaint: Dizziness Stated Complaint: Rapid Heart Beat,Body Numbness Time Seen by Provider: 11/11/21 22:13 Source: patient Mode of arrival: ambulatory Limitations: no limitations - History of Present Illness Initial Comments: This patient is 35-year-old woman who presents to be evaluated for what she suspects is medication side effect. The patient had started taking 2 new medications or back pain tonight. They had started her on 150 mg, as well as increasing her [place] to 10 mg 3 times a day. The patient states that after taking the medication she noticed that she was feeling numb all over, off balance, and like she wanted to fall asleep. MD Complaint: dizziness Onset/Timin -: hour(s) Timing: sudden onset Description: lightheadedness, off-balance History of Same: No History of Trauma: No Severity: moderate Improves With: remaining still Worsens With: other Associated Symptoms: other (Numbness) - Related Data Home Medications Medication Instructions Recorded Confirmed Levothyroxine Sodium [Synthroid] 50 mcg PO DIRECTED 08/10/21 11/11/21 Baclofen [Lioresal] 10 mg PO TID 11/11/21 11/11/21 Cholecalciferol [Vitamin D3 (25 50 mcg PO DAILY 11/11/21 11/11/21 Mcg = 1000 Iu)] Clotrimazole/Betameth Cream 1 applic TOPICAL BID PRN 11/11/21 11/11/21 [Lotrisone] HYDROcodone/APAP 10-325MG [[place] 1 tab PO TID 11/11/21 11/11/21 10-325] L.acidoph,Paracasei, B.lactis 1 cap PO DAILY 11/11/21 11/11/21 [Probiotic] Melatonin 20 mg PO HS PRN 11/11/21 11/11/21 Meloxicam 15 mg PO DAILY 11/11/21 11/11/21 Pregabalin [Lyrica] 150 mg PO TID 11/11/21 11/11/21 Venlafaxine HCl [Effexor XR] 150 mg PO DAILY 11/11/21 11/11/21 busPIRone HCL 15 mg PO TID 11/11/21 11/11/21 metroNIDAZOLE 0.75% VAGINAL 1 applic VAGINAL HS 11/11/21 11/11/21 [Metrogel Vaginal] traZODone HCL 100 mg PO HS 11/11/21 11/11/21 Allergies Allergy/AdvReac Type Severity Reaction Status Date / Time ketorolac [From Toradol] Allergy Rash/Hives Verified 11/11/21 23:06 tramadol Allergy Rash/Hives Verified 11/11/21 23:06 Review of Systems ROS Statement: Those systems with pertinent positive or pertinent negative responses have been documented in the HPI. ROS Other: All systems not noted in ROS Statement are negative. Constitutional: Denies: fever, weakness Respiratory: Denies: cough, dyspnea Cardiovascular: Denies: chest pain Gastrointestinal: Reports: nausea. Denies: abdominal pain, vomiting, diarrhea Genitourinary: Denies: dysuria Musculoskeletal: Denies: back pain Skin: Denies: rash Neurological: Reports: paresthesias, confusion, vertigo Past Medical History Past Medical History: No Reported History, Thyroid Disorder Additional Past Medical History / Comment(s): herniated disc with chronic lower back pain radiating down legs, history of tingling and pain za wrists and hands (resolved), hives History of Any Multi-Drug Resistant Organisms: None Reported Past Surgical History: Back Surgery Past Anesthesia/Blood Transfusion Reactions: No Reported Reaction Additional Past Anesthesia/Blood Transfusion Reaction / Comment(s): Patient has never had a transfusion or anesthesia. Past Psychological History: Anxiety Smoking Status: Current every day smoker Past Alcohol Use History: Occasional Past Drug Use History: Marijuana - Past Family History Father Family Medical History: Asthma, Hypertension Additional Family Medical History / Comment(s): back issues with sciatica and herniated discs Mother History Unknown: Yes Brother(s) Additional Family Medical History / Comment(s): crohns, borderline diabetic Sister(s) Family Medical History: No Reported History Son(s) Family Medical History: No Reported History General Exam Limitations: no limitations General appearance: alert Head exam: Present: atraumatic, normocephalic Pupils: Present: miosis ENT exam: Present: mucous membranes dry Neck exam: Present: normal inspection Respiratory exam: Present: normal lung sounds bilaterally. Absent: respiratory distress, wheezes, rales, rhonchi, stridor Cardiovascular Exam: Present: regular rate, normal rhythm, normal heart sounds. Absent: systolic murmur, diastolic murmur, rubs, gallop GI/Abdominal exam: Present: soft. Absent: distended, tenderness, guarding, jyoti ound, rigid, mass Extremities exam: Present: normal inspection, normal capillary refill. Absent: pedal edema, calf tenderness Back exam: Present: normal inspection. Absent: CVA tenderness (R), CVA tenderness (L), vertebral tenderness Neurological exam: Present: alert, oriented X3, CN II-XII intact. Absent: motor sensory deficit Skin exam: Present: warm, dry, intact, normal color. Absent: rash Course Vital Signs 11/11/21 11/11/21 11/12/21 22:07 22:35 00:41 Temperature 98.2 F 98.4 F Pulse Rate 76 73 72 Respiratory 18 18 16 Rate Blood Pressure 127/87 137/98 134/76 O2 Sat by Pulse 97 95 95 Oximetry Medical Decision Making - Lab Data Result diagrams: 11/12/21 00:04 11/12/21 00:04 Lab Results 11/12/21 11/12/21 11/12/21 Range/Units 00:04 00:04 00:04 WBC 8.8 (3.8-10.6) k/uL RBC 3.84 (3.80-5.40) m/uL Hgb 12.7 (11.4-16.0) gm/dL Hct 39.6 (34.0-46.0) % MCV 103.1 H (80.0-100.0) fL MCH 32.9 (25.0-35.0) pg MCHC 32.0 (31.0-37.0) g/dL RDW 12.6 (11.5-15.5) % Plt Count 325 (150-450) k/uL MPV 6.9 Neutrophils % 63 % Lymphocytes % 25 % Monocytes % 5 % Eosinophils % 4 % Basophils % 1 % Neutrophils # 5.5 (1.3-7.7) k/uL Lymphocytes # 2.2 (1.0-4.8) k/uL Monocytes # 0.5 (0-1.0) k/uL Eosinophils # 0.3 (0-0.7) k/uL Basophils # 0.1 (0-0.2) k/uL Macrocytosis Slight Sodium (137-145) mmol/L Potassium (3.5-5.1) mmol/L Chloride (98-107) mmol/L Carbon Dioxide (22-30) mmol/L Anion Gap mmol/L BUN (7-17) mg/dL Creatinine (0.52-1.04) mg/dL Est GFR (CKD-EPI)AfAm (>60 ml/min/1.73 sqM) Est GFR (CKD-EPI)NonAf (>60 ml/min/1.73 sqM) Glucose (74-99) mg/dL Calcium (8.4-10.2) mg/dL Total Bilirubin (0.2-1.3) mg/dL AST (14-36) U/L ALT (4-34) U/L Alkaline Phosphatase (38-126) U/L Total Protein (6.3-8.2) g/dL Albumin (3.5-5.0) g/dL Urine Color Dark Yellow Urine Appearance Cloudy H (Clear) Urine pH 7.5 (5.0-8.0) Ur Specific [place] 1.019 (1.001-1.035) Urine Protein Negative (Negative) Urine Glucose (UA) Negative (Negative) Urine Ketones Negative (Negative) Urine Blood Negative (Negative) Urine Nitrite Positive H (Negative) Urine Bilirubin 1+ H (Negative) Urine Urobilinogen 2.0 (<2.0) mg/dL Ur Leukocyte Esterase Negative (Negative) Urine WBC 1 (0-5) /hpf Ur Squamous Epith Cells <1 (0-4) /hpf Amorphous Sediment Occasional H (None) /hpf Urine Mucus Rare H (None) /hpf Urine HCG, Qual Not Detected (Not Detectd) 11/12/21 Range/Units 00:04 WBC (3.8-10.6) k/uL RBC (3.80-5.40) m/uL Hgb (11.4-16.0) gm/dL Hct (34.0-46.0) % MCV (80.0-100.0) fL MCH (25.0-35.0) pg MCHC (31.0-37.0) g/dL RDW (11.5-15.5) % Plt Count (150-450) k/uL MPV Neutrophils % % Lymphocytes % % Monocytes % % Eosinophils % % Basophils % % Neutrophils # (1.3-7.7) k/uL Lymphocytes # (1.0-4.8) k/uL Monocytes # (0-1.0) k/uL Eosinophils # (0-0.7) k/uL Basophils # (0-0.2) k/uL Macrocytosis Sodium 137 (137-145) mmol/L Potassium 4.4 (3.5-5.1) mmol/L Chloride 106 (98-107) mmol/L Carbon Dioxide 24 (22-30) mmol/L Anion Gap 7 mmol/L BUN 19 H (7-17) mg/dL Creatinine 0.86 (0.52-1.04) mg/dL Est GFR (CKD-EPI)AfAm >90 (>60 ml/min/1.73 sqM) Est GFR (CKD-EPI)NonAf 87 (>60 ml/min/1.73 sqM) Glucose 95 (74-99) mg/dL Calcium 8.9 (8.4-10.2) mg/dL Total Bilirubin 0.3 (0.2-1.3) mg/dL AST 16 (14-36) U/L ALT 8 (4-34) U/L Alkaline Phosphatase 45 (38-126) U/L Total Protein 6.4 (6.3-8.2) g/dL Albumin 3.7 (3.5-5.0) g/dL Urine Color Urine Appearance (Clear) Urine pH (5.0-8.0) Ur Specific [place] (1.001-1.035) Urine Protein (Negative) Urine Glucose (UA) (Negative) Urine Ketones (Negative) Urine Blood (Negative) Urine Nitrite (Negative) Urine Bilirubin (Negative) Urine Urobilinogen (<2.0) mg/dL Ur Leukocyte Esterase (Negative) Urine WBC (0-5) /hpf Ur Squamous Epith Cells (0-4) /hpf Amorphous Sediment (None) /hpf Urine Mucus (None) /hpf Urine HCG, Qual (Not Detectd) Disposition Clinical Impression: Side effect of medication Disposition: HOME SELF-CARE Condition: Good Instructions (If sedation given, give patient instructions): Dizziness (ED), Adverse Drug Reaction (ED) Is patient prescribed a controlled substance at d/c from ED?: No Referrals: Edilma Vickers MD [Primary Care Provider] - 1-2 days
[2021-11-12 00:18] LABS: Basophils # (A) 0.1 k/uL (0-0.2); Basophils % (A) 1 %; Eosinophils # (A) 0.3 k/uL (0-0.7); Eosinophils % (A) 4 %; HCT 39.6 % (34.0-46.0); HGB 12.7 gm/dL (11.4-16.0); Lymphocytes # (A) 2.2 k/uL (1.0-4.8); Lymphocytes % (A) 25 %; MCH 32.9 pg (25.0-35.0); MCV 103.1 fL (80.0-100.0); Macrocytosis Slight; Mean Platelet Volume 6.9; Monocytes # (A) 0.5 k/uL (0-1.0); Monocytes % (A) 5 %; Neutrophils # (A) 5.5 k/uL (1.3-7.7); Neutrophils % (A) 63 %; Platelet Count 325 k/uL (150-450); RBC 3.84 m/uL (3.80-5.40); RDW 12.6 % (11.5-15.5); WBC 8.8 k/uL (3.8-10.6)
[2021-11-12 00:22] LABS: Amorphous Sediment,Urine Occasional /hpf; Appearance,Urine Cloudy (Clear); Bilirubin,Urine 1+ (Negative); Blood,Urine Negative (Negative); Color,Urine Dark Yellow; Glucose,Urine (UA) Negative (Negative); Ketones,Urine Negative (Negative); Leukocyte Esterase,Urine Negative (Negative); Mucus,Urine Rare /hpf; Nitrite,Urine Positive (Negative); PH, Urine 7.5 (5.0-8.0); Protein,Urine Negative (Negative); Specific Gravity,Urine 1.019 (1.001-1.035); Squamous Epithelial Cell,Urine <1 /hpf (0-4); WBC,Urine 1 /hpf (0-5)
[2021-11-12 00:34] LABS: ALT 8 U/L (4-34); AST 16 U/L (14-36); African American GFR (CKD) >90 (>60 ml/min/1.73 sqM); Albumin 3.7 g/dL (3.5-5.0); Alkaline Phosphatase 45 U/L (38-126); Anion Gap 7 mmol/L; Blood Urea Nitrogen 19 mg/dL (7-17); Calcium 8.9 mg/dL (8.4-10.2); Carbon Dioxide 24 mmol/L (22-30); Chloride 106 mmol/L (98-107); Glucose 95 mg/dL (74-99); Non-African American GFR(CKD) 87 (>60 ml/min/1.73 sqM); Potassium 4.4 mmol/L (3.5-5.1); Sodium 137 mmol/L (137-145); Total Bilirubin 0.3 mg/dL (0.2-1.3); Total Protein 6.4 g/dL (6.3-8.2)
[2021-11-12 02:03] VITALS: BP 133/68; PULSE 68; RESP 18
== END 2021-11-12 02:08 | disposition home or self-care (01) ==
LOC: EC 22:02
DX: R20.0 Anesthesia of skin (principal); T50.905A Adverse effect of unspecified drugs, medicaments and biological substances, initial encounter; F41.9 Anxiety disorder, unspecified; F17.200 Nicotine dependence, unspecified, uncomplicated; F12.90 Cannabis use, unspecified, uncomplicated; Z72.89 Other problems related to lifestyle
CPT/HCPCS: 36415; 80053; 81001; 81025; 85025; 99284

== ENCOUNTER 2021-12-10 09:53 | Emergency (ER) | payer OTHER ==
[2021-12-10 09:57] VITALS: TEMP 97.8
[2021-12-10] MEDS ORDERED: ORPHENADRINE 30 MG/ML 2 ML VIAL IM STA (11:28)
[2021-12-10] MEDS ORDERED: MORPHINE SULFATE 4 MG/ML SYRINGE IM STA (11:28)
--- NOTE | 2021-12-10 11:32 | ED ---
General Adult HPI - General Chief complaint: Back Pain/Injury Stated complaint: Lower Back Pain Time Seen by Provider: 12/10/21 11:00 Source: patient, RN notes reviewed Mode of arrival: ambulatory Limitations: no limitations - History of Present Illness Initial comments: Patient is a pleasant 35-year-old female presenting to the emergency Department with chronic lower back pain. Patient has had symptoms for years, worse the past few months. Patient has been seen multiple times including computed tomography scan imaging. Patient has seen her back doctor. Patient has an appointment again Monday to see her back doctor again and was told she will need surgery. No comments or retention of bowel or bladder. No weakness. No loss of sensation. Patient does have history of previous back surgery in 1999. - Related Data Home Medications Medication Instructions Recorded Confirmed Levothyroxine Sodium [Synthroid] 50 mcg PO DIRECTED 08/10/21 11/11/21 Baclofen [Lioresal] 10 mg PO TID 11/11/21 11/11/21 Cholecalciferol [Vitamin D3 (25 50 mcg PO DAILY 11/11/21 11/11/21 Mcg = 1000 Iu)] Clotrimazole/Betameth Cream 1 applic TOPICAL BID PRN 11/11/21 11/11/21 [Lotrisone] HYDROcodone/APAP 10-325MG [[place] 1 tab PO TID 11/11/21 11/11/21 10-325] L.acidoph,Paracasei, B.lactis 1 cap PO DAILY 11/11/21 11/11/21 [Probiotic] Melatonin 20 mg PO HS PRN 11/11/21 11/11/21 Meloxicam 15 mg PO DAILY 11/11/21 11/11/21 Pregabalin [Lyrica] 150 mg PO TID 11/11/21 11/11/21 Venlafaxine HCl [Effexor XR] 150 mg PO DAILY 11/11/21 11/11/21 busPIRone HCL 15 mg PO TID 11/11/21 11/11/21 metroNIDAZOLE 0.75% VAGINAL 1 applic VAGINAL HS 11/11/21 11/11/21 [Metrogel Vaginal] traZODone HCL 100 mg PO HS 11/11/21 11/11/21 Allergies Allergy/AdvReac Type Severity Reaction Status Date / Time ketorolac [From Toradol] Allergy Rash/Hives Verified 12/10/21 09:57 tramadol Allergy Rash/Hives Verified 12/10/21 09:57 Review of Systems ROS Statement: Those systems with pertinent positive or pertinent negative responses have been documented in the HPI. ROS Other: All systems not noted in ROS Statement are negative. Constitutional: Denies: fever Eyes: Denies: eye pain ENT: Denies: ear pain Respiratory: Denies: cough Cardiovascular: Denies: chest pain Endocrine: Denies: fatigue Gastrointestinal: Denies: abdominal pain Genitourinary: Denies: dysuria Musculoskeletal: Reports: as per HPI, back pain Skin: Denies: rash Neurological: Denies: weakness, numbness Past Medical History Past Medical History: No Reported History, Thyroid Disorder Additional Past Medical History / Comment(s): herniated disc with chronic lower back pain radiating down legs, history of tingling and pain za wrists and hands (resolved), hives History of Any Multi-Drug Resistant Organisms: None Reported Past Surgical History: Back Surgery Past Anesthesia/Blood Transfusion Reactions: No Reported Reaction Additional Past Anesthesia/Blood Transfusion Reaction / Comment(s): Patient has never had a transfusion or anesthesia. Past Psychological History: Anxiety Smoking Status: Current every day smoker Past Alcohol Use History: Occasional Past Drug Use History: Marijuana - Past Family History Father Family Medical History: Asthma, Hypertension Additional Family Medical History / Comment(s): back issues with sciatica and herniated discs Mother History Unknown: Yes Brother(s) Additional Family Medical History / Comment(s): crohns, borderline diabetic Sister(s) Family Medical History: No Reported History Son(s) Family Medical History: No Reported History General Exam Limitations: no limitations General appearance: alert, in no apparent distress Eye exam: Present: normal appearance Respiratory exam: Present: normal lung sounds bilaterally Cardiovascular Exam: Present: regular rate, normal rhythm Expanded Peripheral pulses: 2+: Dorsalis Pedis (R), Dorsalis Pedis (L) GI/Abdominal exam: Present: soft. Absent: tenderness, pulsatile mass Extremities exam: Present: normal inspection Back exam: Present: vertebral tenderness (Mild tenderness diffuse lower lumbar region) Neurological exam: Present: alert. Absent: motor sensory deficit Expanded Sensory exam: Lower Extremity Light Touch: Normal Motor strength exam: RLE: 5, LLE: 5 Psychiatric exam: Present: normal affect, normal mood Skin exam: Present: normal color Course Vital Signs 12/10/21 09:55 Temperature 97.8 F Pulse Rate 94 Respiratory 20 Rate Blood Pressure 107/70 O2 Sat by Pulse 99 Oximetry Disposition Clinical Impression: Chronic back pain Disposition: HOME SELF-CARE Condition: Stable Instructions (If sedation given, give patient instructions): Acute Low Back Pain (ED) Additional Instructions: Please do follow-up with your back doctor Monday as planned. Please also follow-up with primary care physician in the next day or 2 for recheck. Return for fever, weakness or loss of sensation, loss of control of bowel or bladder, worsening or changing symptoms or other concerns. Is patient prescribed a controlled substance at d/c from ED?: No Referrals: Edilma Vickers MD [Primary Care Provider] - 1-2 days Ashvin Conti DO [Doctor of Osteopathic Medicine] - 1-2 days Time of Disposition: 11:31
[2021-12-10 11:54] VITALS: BP 111/75; PULSE 86; RESP 16
== END 2021-12-10 11:53 | disposition home or self-care (01) ==
LOC: EC 09:53
DX: M54.59 Other low back pain (principal); E07.9 Disorder of thyroid, unspecified; F41.9 Anxiety disorder, unspecified; F17.200 Nicotine dependence, unspecified, uncomplicated; F12.90 Cannabis use, unspecified, uncomplicated; Z88.1 Allergy status to other antibiotic agents
CPT/HCPCS: 99283; 96372 ×2; J2270; J2360

== ENCOUNTER → 2022-01-17 | Outpatient (CLI) | payer OTHER ==
[2022-01-17 18:13] LABS: Basophils # (A) 0.05 X 10*3/uL (0.00-0.10); Basophils % (A) 0.7 %; Eosinophils # (A) 0.16 X 10*3/uL (0.04-0.35); Eosinophils % (A) 2.3 %; HCT 39.4 % (37.2-46.3); HGB 12.5 g/dL (12.0-15.0); Immature Grans, Automated 0.4 %; Lymphocytes # (A) 1.74 X 10*3/uL (0.90-5.00); Lymphocytes % (A) 24.8 %; MCH 32.3 pg (27.0-32.0); MCHC 31.7 g/dL (32.0-37.0); MCV 101.8 fL (80.0-97.0); Mean Platelet Volume 8.9 fL (9.5-12.2); Monocytes # (A) 0.46 X 10*3/uL (0.20-1.00); Monocytes % (A) 6.5 %; NRBC Per 100 WBC 0 /100 WBCS (0.0-0.0); Neutrophils # (A) 4.59 X 10*3/uL (1.80-7.70); Neutrophils % (A) 65.3 %; Platelet Count 361 X 10*3/uL (140-440); RBC 3.87 X 10*6/uL (4.10-5.20); RDW 12.9 % (11.5-14.5); WBC 7.03 X 10*3/uL (4.50-10.00)
[2022-01-17 18:39] LABS: BUN/Creat Ratio 18.36 Ratio (12.00-20.00)
[2022-01-17 18:40] LABS: African American GFR (CKD) 125.7 (60.0-200.0); Anion Gap 9.1 mmol/L (10.00-18.00); Calcium 8.8 mg/dL (8.7-10.3); Carbon Dioxide 23.5 mmol/L (20.0-27.5); Non-African American GFR(CKD) 108.4 (60.0-200.0); Potassium 4.3 mmol/L (3.5-5.5); T4, Free (Free Thyroxine) 0.83 ng/dL (0.800-1.800)
[2022-01-17 19:45] LABS: INR 0.89 (0.90-1.11); Prothrombin Time 10.1 sec (9.9-11.9)
[2022-01-18 19:33] LABS: Centromere Antibody <0.2 AI; Centromere Antibody Interp NEGATIVE (NEGATIVE); Chromatin Antibody <0.2 AI; DNA Double-Stranded NEGATIVE (NEGATIVE); JO-1 IgG Antibody <0.2 AI; Scleroderma SC-70 Ab 3.5 AI
== END | disposition home or self-care (01) ==
LOC: LABWHC1 11:52
PROVIDERS: ATTEND Family Medicine
DX: Z01.812 Encounter for preprocedural laboratory examination (principal); R79.9 Abnormal finding of blood chemistry, unspecified; R00.2 Palpitations; E03.9 Hypothyroidism, unspecified
CPT/HCPCS: 36415; 80048; 83516; 83835; 84436; 84439; 84443; 84480; 85025; 85610; 86038; 86039; 86225; 86235

== ENCOUNTER → 2022-01-25 | Outpatient (CLI) | payer OTHER ==
--- NOTE | 2022-01-25 12:22 | MR ---
EXAMINATION TYPE: MR brain wo/w con DATE OF EXAM: 01/25/2022 COMPARISON: None HISTORY: Evaluate for MS, tremor, paresthesia of skin TECHNIQUE: Multiplanar, multisequence images of the brain and brainstem is performed without and with IV contras t, utilizing 7.5 mL intravenous Gadavist . FINDINGS: Diffusion weighted images demonstrate no evidence of a recent infarct or other diffusion ab normality. There is no extra-axial fluid collection or significant white matter signal abnormality. The ventricular system and cisternal spaces are normal in size and appearance. The brain volume is age appropriate. Midline structures demonstrate normal morphology. The craniocervical junction appears within normal limits. Post contrast images demonstrate no abnormal enhancement. The dural venous sinuses appear pa tent. The visualized sinuses are showing mucosal disease in the maxillary sinus, ethmoid air cells an d the globes are intact. IMPRESSION: Normal pre- and postbrain MRI mild sinus disease.
== END | disposition home or self-care (01) ==
LOC: RADMRIMAIN 10:31
PROVIDERS: ATTEND Family Medicine
DX: J32.9 Chronic sinusitis, unspecified (principal); R25.1 Tremor, unspecified; R20.2 Paresthesia of skin
CPT/HCPCS: 70553; A9585

== ENCOUNTER → 2022-02-07 | Outpatient (CLI) | payer OTHER ==
--- NOTE | 2022-02-07 10:08 | CT ---
EXAMINATION TYPE: CT lumbar spine wo con DATE OF EXAM: 02/07/2022 8:43 AM COMPARISON: CT dated 08/19/2021 HISTORY: Low back pain CT DLP: 862 mGycm Automated exposure control for dose reduction was used. Technique: Unenhanced CT of the lumbar spine was performed. Bone and soft tissue window settings are submitted as well as coronal and sagittal reconstructions. Findings: Suspected previous intervention at the left side of L5-S1 level, please correlate with previous surgi ben/interventional history. Preserved lumbar curvature. No significant anterolisthesis or retrolisthe sis. No definite vertebral body collapse or acute displaced fracture. Tiny multilevel opposing endplate os teophytosis. Degenerative changes at L5-S1 level with opposing endplate osteophytosis and degenerativ e disc. L1-L2: Small central posterior disc protrusion, causing no significant central spinal canal stenosis or neuroforaminal stenosis. L2-L3: Mild diffuse posterior disc bulge, causing mild central spinal canal stenosis without signific ant neuroforaminal stenosis. L3-L4: Mild diffuse posterior disc bulge more inclined to the left side with focal central posterior disc protrusion, associated with prominent posterior epidural fat, causing moderate central spinal ca nal stenosis without significant neuroforaminal stenosis. L4-L5: Diffuse posterior disc bulge more inclined to the left side, associated with central posterior focal disc protrusion, prominent posterior epidural fat and mild ligamentum flavum hypertrophy, caus ing moderate to severe central spinal canal stenosis and mild bilateral neuroforaminal stenosis. L5-S1: Degenerated disc with mild diffuse posterior disc bulge and sharp posterior osteophytosis, cau sing mild central spinal canal stenosis and moderate bilateral neuroforaminal stenosis, compressing t he corresponding L5 nerve root, more on the left side. No paraspinal lesion. Mild degenerative changes of the sacroiliac joints. Stable bone island in the p osterior aspect of the right iliac bone. 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 Further MRI assessment can be considered if clinically required .
== END | disposition home or self-care (01) ==
LOC: RADCTMAIN 08:26
PROVIDERS: ATTEND Orthopaedic Surgery
DX: M47.816 Spondylosis without myelopathy or radiculopathy, lumbar region (principal); M51.36 Other intervertebral disc degeneration, lumbar region; M48.061 Spinal stenosis, lumbar region without neurogenic claudication; M99.73 Connective tissue and disc stenosis of intervertebral foramina of lumbar region
CPT/HCPCS: 72131

== ENCOUNTER 2022-02-26 18:13 | Emergency (ER) | payer OTHER ==
[2022-02-26 18:18] VITALS: BP 119/81; PULSE 120; RESP 22; TEMP 97.7
[2022-02-26] MEDS ORDERED: ORPHENADRINE 30 MG/ML 2 ML VIAL IM STA (18:31)
[2022-02-26] MEDS ORDERED: MORPHINE SULFATE 4 MG/ML SYRINGE IM STA (18:31)
--- NOTE | 2022-02-26 18:34 | ED ---
General Adult HPI - General Chief complaint: Back Pain/Injury Stated complaint: Lower back pain Time Seen by Provider: 02/26/22 18:24 Source: patient, RN notes reviewed Mode of arrival: ambulatory Limitations: no limitations - History of Present Illness Initial comments: Patient is a pleasant 36-year-old female presenting to the emergency Department with concerns for low back discomfort. Patient has chronic low back pain with previous surgery in 1999. Patient has had multiple previous evaluations. Patient recently has seen a back surgeon again and plans to have surgery March [address] Conti. No new weakness. No incontinence or retention. - Related Data Home Medications Medication Instructions Recorded Confirmed Levothyroxine Sodium [Synthroid] 50 mcg PO DIRECTED 08/10/21 11/11/21 Baclofen [Lioresal] 10 mg PO TID 11/11/21 11/11/21 Cholecalciferol [Vitamin D3 (25 50 mcg PO DAILY 11/11/21 11/11/21 Mcg = 1000 Iu)] Clotrimazole/Betameth Cream 1 applic TOPICAL BID PRN 11/11/21 11/11/21 [Lotrisone] HYDROcodone/APAP 10-325MG [[place] 1 tab PO TID 11/11/21 11/11/21 10-325] L.acidoph,Paracasei, B.lactis 1 cap PO DAILY 11/11/21 11/11/21 [Probiotic] Melatonin 20 mg PO HS PRN 11/11/21 11/11/21 Meloxicam 15 mg PO DAILY 11/11/21 11/11/21 Pregabalin [Lyrica] 150 mg PO TID 11/11/21 11/11/21 Venlafaxine HCl [Effexor XR] 150 mg PO DAILY 11/11/21 11/11/21 busPIRone HCL 15 mg PO TID 11/11/21 11/11/21 metroNIDAZOLE 0.75% VAGINAL 1 applic VAGINAL HS 11/11/21 11/11/21 [Metrogel Vaginal] traZODone HCL 100 mg PO HS 11/11/21 11/11/21 Allergies Allergy/AdvReac Type Severity Reaction Status Date / Time ketorolac [From Toradol] Allergy Rash/Hives Verified 02/26/22 18:17 tramadol Allergy Rash/Hives Verified 02/26/22 18:17 Review of Systems ROS Statement: Those systems with pertinent positive or pertinent negative responses have been documented in the HPI. ROS Other: All systems not noted in ROS Statement are negative. Constitutional: Denies: fever Eyes: Denies: eye pain ENT: Denies: ear pain Respiratory: Denies: cough Cardiovascular: Denies: chest pain Endocrine: Denies: fatigue Gastrointestinal: Denies: abdominal pain Genitourinary: Denies: dysuria Musculoskeletal: Reports: as per HPI, back pain Skin: Denies: rash Neurological: Denies: weakness Past Medical History Past Medical History: Thyroid Disorder Additional Past Medical History / Comment(s): herniated disc with chronic lower back pain radiating down legs, history of tingling and pain za wrists and hands (resolved), hives History of Any Multi-Drug Resistant Organisms: None Reported Past Surgical History: Back Surgery Past Anesthesia/Blood Transfusion Reactions: No Reported Reaction Additional Past Anesthesia/Blood Transfusion Reaction / Comment(s): Patient has never had a transfusion or anesthesia. Past Psychological History: Anxiety Smoking Status: Current every day smoker Past Alcohol Use History: Occasional Past Drug Use History: Marijuana - Past Family History Father Family Medical History: Asthma, Hypertension Additional Family Medical History / Comment(s): back issues with sciatica and herniated discs Mother History Unknown: Yes Brother(s) Additional Family Medical History / Comment(s): crohns, borderline diabetic Sister(s) Family Medical History: No Reported History Son(s) Family Medical History: No Reported History General Exam Limitations: no limitations General appearance: alert, in no apparent distress Head exam: Present: normocephalic Eye exam: Present: normal appearance Neck exam: Present: normal inspection Cardiovascular Exam: Present: regular rate, normal rhythm Expanded Peripheral pulses: 2+: Dorsalis Pedis (R), Dorsalis Pedis (L) GI/Abdominal exam: Present: soft. Absent: tenderness Extremities exam: Present: normal inspection Back exam: Present: vertebral tenderness (Minimal tenderness lower lumbar) Neurological exam: Absent: motor sensory deficit Expanded Sensory exam: Lower Extremity Light Touch: Normal Motor strength exam: RLE: 5, LLE: 5 Psychiatric exam: Present: normal affect, normal mood Skin exam: Present: normal color Course Vital Signs 02/26/22 18:14 Temperature 97.7 F Pulse Rate 120 H Respiratory 22 Rate Blood Pressure 119/81 O2 Sat by Pulse 96 Oximetry Disposition Clinical Impression: Low back pain Disposition: HOME SELF-CARE Condition: Stable Instructions (If sedation given, give patient instructions): Acute Low Back Pain (ED) Additional Instructions: Please do follow-up with your primary care physician in the next day or 2 for recheck. Please also follow-up with your back doctor within next couple days. Return for loss of control of bowel or bladder, weakness, loss of sensation, worsening or changing symptoms or other concerns Is patient prescribed a controlled substance at d/c from ED?: No Referrals: Edilma Vickers MD [Primary Care Provider] - 1-2 days Time of Disposition: 18:34
== END 2022-02-26 19:06 | disposition home or self-care (01) ==
LOC: EC 18:13
DX: M54.50 Low back pain, unspecified (principal); F17.200 Nicotine dependence, unspecified, uncomplicated; F12.90 Cannabis use, unspecified, uncomplicated; F41.9 Anxiety disorder, unspecified; Z79.899 Other long term (current) drug therapy; Z88.5 Allergy status to narcotic agent
CPT/HCPCS: 99283; 96372 ×2; J2270; J2360

== ENCOUNTER → 2022-03-12 | Outpatient (CLI) | payer OTHER | END | disposition home or self-care (01) | LOC: LABPAT 09:46 | PROVIDERS: ATTEND Orthopaedic Surgery | DX: Z01.812 Encounter for preprocedural laboratory examination (principal); Z20.822 Contact with and (suspected) exposure to COVID-19; R00.2 Palpitations; E03.9 Hypothyroidism, unspecified; M47.816 Spondylosis without myelopathy or radiculopathy, lumbar region; R79.9 Abnormal finding of blood chemistry, unspecified | CPT/HCPCS: 87070; U0003; C9803 ==

== ENCOUNTER → 2022-11-14 | Outpatient (CLI) | payer OTHER ==
--- NOTE | 2022-11-15 20:29 | MM ---
Reason for Exam: Screening (asymptomatic). Baseline mammogram. Patient History: Menarche at age 11. First Full-Term at age 20. Maternal grandmother had breast cancer. Last menstrual period: 10/13/2022 Risk Values: Sherry 5 year model risk: 0.4%. NCI Lifetime model risk: 9.1%. Prior Study Comparison: Patient's first Mammogram. Tissue Density: The breast tissue is heterogeneously dense. This may lower the sensitivity of mammography. Findings: Analyzed By CAD. No significant mass, suspicious microcalcification, or other discrete abnormality is seen. A benign oil cyst calcification is present on the right. A few scattered benign punctate calcifications are noted on the left. Overall Assessment: Benign, BI-RAD 2 Management: Screening Mammogram of both breasts at age 38. 1. Patient should continue monthly self breast exams. 2. A clinical breast exam by your physician is recommended on an annual basis. 3. This exam should not preclude additional follow-up of suspicious palpable abnormalities. Electronically signed and approved by: Surinder Carpio M.D. Radiologist
== END | disposition home or self-care (01) ==
LOC: RADMAMWWP 13:35
PROVIDERS: ATTEND Family Medicine
DX: Z12.31 Encounter for screening mammogram for malignant neoplasm of breast (principal); Z80.3 Family history of malignant neoplasm of breast
CPT/HCPCS: 77067

== ENCOUNTER → 2023-02-20 | Outpatient (CLI) | payer OTHER ==
--- NOTE | 2023-02-20 18:03 | XR ---
EXAMINATION TYPE: XR shoulder complete RT DATE OF EXAM: 02/20/2023 CLINICAL HISTORY: Impingement syndrome. Pain for one month. TECHNIQUE: Three views of the right shoulder are obtained. COMPARISON: None. FINDINGS: There is no acute fracture/dislocation evident in the right shoulder. Mild to moderate joel rowing at the acromioclavicular joint. Distal acromion morphology unremarkable. Glenohumeral joint is preserved. The visualized ribs are intact and unremarkable. IMPRESSION: As above.
== END | disposition home or self-care (01) ==
LOC: RADXRMAIN 13:59
PROVIDERS: ATTEND Family Medicine
DX: M75.41 Impingement syndrome of right shoulder (principal)

== ENCOUNTER 2023-02-28 14:38 | Emergency (ER) | payer OTHER ==
[2023-02-28 14:46] VITALS: PULSE 90
[2023-02-28] MEDS ORDERED: KETOROLAC 15 MG/ML 1 ML VIAL IM STA (15:04)
[2023-02-28] MEDS ORDERED: LIDOCAINE 5% PATCH TOPICAL SCH (15:15)
--- NOTE | 2023-02-28 15:58 | ED ---
General Adult HPI - General Chief complaint: Extremity Problem,Nontraumatic Stated complaint: R SHOULDER PAIN Time Seen by Provider: 02/28/23 14:56 Source: patient, RN notes reviewed Mode of arrival: ambulatory Limitations: no limitations - History of Present Illness Initial comments: 37-year-old female with a past medical history significant for left pain presents to the emergency department with a chief complaint of right shoulder pain. She reports that she was recently evaluated at this emergency Department approximately 10 days ago for which she had imaging performed which revealed she had a pinched nerve in her neck. She is reporting worsening pain. She has been taking Motrin and applying Lidoderm patches at home with mild reli ef. She denies any numbness, tingling, weakness in the extremity. She denies any new injury or trauma. He says she has an appointment with Dr. Vleasco and scheduled for 03/14/2023. She denies any fever, fatigue, cough, congestion, chest pain, palpitations, abdominal pain, nausea, vomiting, diarrhea - Related Data Home Medications Medication Instructions Recorded Confirmed Baclofen [Lioresal] 10 mg PO TID 11/11/21 03/15/22 Cholecalciferol [Vitamin D3 (25 50 mcg PO DAILY 11/11/21 03/15/22 Mcg = 1000 Iu)] HYDROcodone/APAP 10-325MG [[place] 1 tab PO TID 11/11/21 03/15/22 10-325] Melatonin [Melatonin ER] 20 mg PO HS PRN 11/11/21 03/15/22 Meloxicam 15 mg PO DAILY 11/11/21 03/15/22 Pregabalin [Lyrica] 150 mg PO TID 11/11/21 03/15/22 Venlafaxine HCl [Effexor XR] 150 mg PO QAM 11/11/21 03/15/22 busPIRone HCL 15 mg PO TID 11/11/21 03/15/22 Cyclobenzaprine [Flexeril] 10 mg PO HS 03/14/22 03/15/22 Ferrous Sulfate [Iron (65 MG 1 tab PO DAILY 03/14/22 03/15/22 Elemental)] Multivitamins, Thera [Multivitamin 1 tab PO DAILY 03/14/22 03/15/22 (formulary)] Thyroid,Pork [[place] Thyroid] 15 mg PO QAM 03/14/22 03/15/22 Previous Rx's Medication Instructions Recorded Pregabalin [Lyrica] 150 mg PO TID #90 cap 03/19/22 Sennosides/Docusate Sodium [[place]enna 1 each PO DAILY #20 tablet 03/19/22 Plus 8.6-50 mg Tablet] cefaDROXiL [Duricef] 500 mg PO Q12HR 5 Days #10 cap 03/19/22 oxyCODONE HCL [oxyCODONE HCL (IR)] 10 mg PO Q4H PRN #56 tab 03/19/22 Allergies Allergy/AdvReac Type Severity Reaction Status Date / Time ketorolac [From Toradol] Allergy Rash/Hives Verified 02/28/23 14:46 tramadol Allergy Rash/Hives Verified 02/28/23 14:46 Review of Systems ROS Statement: Those systems with pertinent positive or pertinent negative responses have been documented in the HPI. ROS Other: All systems not noted in ROS Statement are negative. Past Medical History Past Medical History: Thyroid Disorder Additional Past Medical History / Comment(s): herniated disc with chronic lower back pain radiating down legs, history of tingling and pain za wrists and hands (resolved), hives History of Any Multi-Drug Resistant Organisms: None Reported Past Surgical History: Back Surgery Past Anesthesia/Blood Transfusion Reactions: No Reported Reaction Additional Past Anesthesia/Blood Transfusion Reaction / Comment(s): Patient has never had a transfusion or anesthesia. Past Psychological History: Anxiety Smoking Status: Never smoker Past Alcohol Use History: Occasional Past Drug Use History: Marijuana - Past Family History Father Family Medical History: Asthma, Hypertension Additional Family Medical History / Comment(s): back issues with sciatica and herniated discs Mother History Unknown: Yes Brother(s) Additional Family Medical History / Comment(s): crohns, borderline diabetic Sister(s) Family Medical History: No Reported History Son(s) Family Medical History: No Reported History General Exam - General Exam Comments Initial Comments: General: Alert, in no acute distress Head: atraumatic normocephalic. Eyes PERRL, EOMI intact, mucous membranes moist Respiratory: Lungs clear to auscultation bilaterally Cardiovascular: Rate regular rate and rhythm Abdominal: Soft without guarding or rebound Extremities: Normal inspection with full range of motion and normal capillary refill Neuroogic: alert and oriented 3, CN II-XII intact, able to ambulate with steady gait Skin: warm dry and intact with normal color Limitations: no limitations Course Vital Signs 02/28/23 02/28/23 14:43 16:24 Temperature 97.7 F 97.8 F Pulse Rate 90 90 Respiratory 18 16 Rate Blood Pressure 123/81 127/79 O2 Sat by Pulse 95 97 Oximetry Medical Decision Making - Medical Decision Making Was pt. sent in by a medical professional or institution (PARAM Olivo, HYDRO SPRAYER OPERATOR, urgent care, hospital, or retirement...) When possible be specific @ -[No] Did you speak to anyone other than the patient for history (EMS, parent, family, police, friend...)? What history was obtained from this source @ -[No] Did you review nursing and triage notes (agree or disagree)? Why? @ -[I reviewed and agree with nursing and triage notes] Were old charts reviewed (outside hosp., previous admission, EMS record, old EKG, old radiological studies, urgent care reports/EKG's, retirement records)? Report findings @ -[No old charts were reviewed] Differential Diagnosis (chest pain, altered mental status, abdominal pain women, abdominal pain men, vaginal bleeding, weakness, fever, dyspnea, syncope, headache, dizziness, GI bleed, back pain, seizure, CVA, palpatations, mental health, musculoskeletal)? @ -[not applicable] EKG interpreted by me (3pts min.). @ -[As above] X-rays interpreted by me (1pt min.). @ -[None done] CT interpreted by me (1pt min.). @ -[None done] U/S interpreted by me (1pt. min.). @ -[None done] What testing was considered but not performed or refused? (CT, X-rays, U/S, labs)? Why? @ -[None] What meds were considered but not given or refused? Why? @ -[None] Did you discuss the management of the patient with other professionals (professionals i.e. PAARM Olivo, HYDRO SPRAYER OPERATOR, lab, RT, psych nurse, medical social worker, clinical engineering director, teacher, correctional officer chief, field nurse case manager)? Give summary @ -[No] Was smoking cessation discussed for >3mins.? @ -[No] Was critical care preformed (if so, how long)? @ -[No] Were there social determinants of health that impacted care today? How? (Homelessness, low income, unemployed, alcoholism, drug addiction, transportation, low edu. Level, literacy, decrease access to med. care, long-term, rehab)? @ -[No] Was there de-escalation of care discussed even if they declined (Discuss DNR or withdrawal of care, Hospice)? DNR status @ -[No] What co-morbidities impacted this encounter? (DM, HTN, Smoking, COPD, CAD, Cancer, CVA, ARF, Chemo, Hep., AIDS, mental health diagnosis, sleep apnea, morbid obesity)? @ -[None] Was patient admitted / discharged? Hospital course, mention meds given and route, prescriptions, significant lab abnormalities, going to OR and other pertinent info. @ -Discharged. This is a 37-year-old female who presents the emergency department apartment with right shoulder pain. Patient was given Toradol shot. Patient was offered Lidoderm patch for which she refused. No imaging was performed as patient denied any recent new injury or trauma to the area. Full range of motion remains intact I have out of 5 strength testing, 2+ pulses bilaterally. Patient was given Toradol Tylenol 3 starter pack upon discharge. Return precautions were discussed at length. Patient discharged in stable condition. Case discussed with [facility] Plata [facility] who agrees with plan of care Undiagnosed new problem with uncertain prognosis? @ -[No] Drug Therapy requiring intensive monitoring for toxicity (Heparin, Nitro, Insulin, Cardizem)? @ -[No] Were any procedures done? @ -[No] Diagnosis/symptom? @ - right shoulder pain Acute, or Chronic, or Acute on Chronic? @ -acute Uncomplicated (without systemic symptoms) or Complicated (systemic symptoms)? @ -uncomplicated Side effects of treatment? @ -[No] Exacerbation, Progression, or Severe Exacerbation? @ -[No] Poses a threat to life or bodily function? How? (Chest pain, [place], [place], pneumonia, PE, COPD, DKA, ARF, appy, cholecystitis, CVA, Diverticulitis, Homicidal, Suicidal, threat to staff... and all critical care pts) @ -low likelihood Disposition Clinical Impression: Mechanical back pain, Shoulder pain Disposition: HOME SELF-CARE Condition: Stable Additional Instructions: Please return to the nearest emergency department if symptoms worsen or persist Is patient prescribed a controlled substance at d/c from ED?: No Referrals: Edilma Vickers MD [Primary Care Provider] - 1-2 days Ashvin Conti DO [Doctor of Osteopathic Medicine] - 1-2 days Time of Disposition: 15:57
[2023-02-28] MEDS ORDERED: ACET/COD 300 MG/30 MG STARTER PACK 6 TAB BTL PO STA (16:18)
[2023-02-28 16:26] VITALS: BP 127/79; RESP 16; TEMP 97.8
== END 2023-02-28 16:26 | disposition home or self-care (01) ==
LOC: EC 14:38
DX: M25.511 Pain in right shoulder (principal); M54.9 Dorsalgia, unspecified; E07.9 Disorder of thyroid, unspecified; F41.9 Anxiety disorder, unspecified; Z79.899 Other long term (current) drug therapy; Z88.6 Allergy status to analgesic agent; Z88.8 Allergy status to other drugs, medicaments and biological substances
CPT/HCPCS: 99283; 96372; J1885

== ENCOUNTER 2023-04-03 18:40 | Emergency (ER) | payer OTHER ==
[2023-04-03 19:12] VITALS: BP 112/81; PULSE 102; TEMP 96.2
[2023-04-03] MEDS ORDERED: HYDROcodone/APAP 7.5-325MG 1 EACH TAB PO ONE (19:44)
[2023-04-03] MEDS ORDERED: LIDOCAINE 5% PATCH TOPICAL STA (19:45)
[2023-04-03] MEDS ORDERED: MORPHINE SULFATE 4 MG/ML SYRINGE IM STA (19:49)
[2023-04-03] MEDS ORDERED: ACET/COD 300 MG/30 MG STARTER PACK 6 TAB BTL PO STA (21:37)
--- NOTE | 2023-04-03 21:38 | ED ---
Upper Extremity HPI - General Chief Complaint: Extremity Injury, Upper Stated Complaint: R shoulder pain Time Seen by Provider: 04/03/23 19:17 Source: patient Mode of arrival: ambulatory Limitations: no limitations - History of Present Illness Initial Comments: Patient is a 37-year-old female presents to the emergency department for right shoulder pain. The pain is chronic for the past 3 months. Patient denies injury. She follows with data analytics specialist at [facility] and she is currently in physical therapy. Patient reports increase in pain since physical therapy. Pain is in the front and top of her shoulder. Taken Tylenol without relief. She denies any reinjury. She does have some tingling into her upper arm. - Related Data Home Medications Medication Instructions Recorded Confirmed Baclofen [Lioresal] 10 mg PO TID 11/11/21 03/15/22 Cholecalciferol [Vitamin D3 (25 50 mcg PO DAILY 11/11/21 03/15/22 Mcg = 1000 Iu)] HYDROcodone/APAP 10-325MG [[place] 1 tab PO TID 11/11/21 03/15/22 10-325] Melatonin [Melatonin ER] 20 mg PO HS PRN 11/11/21 03/15/22 Meloxicam 15 mg PO DAILY 11/11/21 03/15/22 Pregabalin [Lyrica] 150 mg PO TID 11/11/21 03/15/22 Venlafaxine HCl [Effexor XR] 150 mg PO QAM 11/11/21 03/15/22 busPIRone HCL 15 mg PO TID 11/11/21 03/15/22 Cyclobenzaprine [Flexeril] 10 mg PO HS 03/14/22 03/15/22 Ferrous Sulfate [Iron (65 MG 1 tab PO DAILY 03/14/22 03/15/22 Elemental)] Multivitamins, Thera [Multivitamin 1 tab PO DAILY 03/14/22 03/15/22 (formulary)] Thyroid,Pork [[place] Thyroid] 15 mg PO QAM 03/14/22 03/15/22 Previous Rx's Medication Instructions Recorded Pregabalin [Lyrica] 150 mg PO TID #90 cap 03/19/22 Sennosides/Docusate Sodium [Senna 1 each PO DAILY #20 tablet 03/19/22 Plus 8.6-50 mg Tablet] cefaDROXiL [Duricef] 500 mg PO Q12HR 5 Days #10 cap 03/19/22 oxyCODONE HCL [oxyCODONE HCL (IR)] 10 mg PO Q4H PRN #56 tab 03/19/22 Allergies Allergy/AdvReac Type Severity Reaction Status Date / Time ketorolac [From Toradol] Allergy Rash/Hives Verified 02/28/23 14:46 tramadol Allergy Rash/Hives Verified 02/28/23 14:46 Review of Systems ROS Statement: Those systems with pertinent positive or pertinent negative responses have been documented in the HPI. ROS Other: All systems not noted in ROS Statement are negative. Past Medical History Past Medical History: Thyroid Disorder Additional Past Medical History / Comment(s): herniated disc with chronic lower back pain radiating down legs, history of tingling and pain za wrists and hands (resolved), hives History of Any Multi-Drug Resistant Organisms: None Reported Past Surgical History: Back Surgery Past Anesthesia/Blood Transfusion Reactions: No Reported Reaction Additional Past Anesthesia/Blood Transfusion Reaction / Comment(s): Patient has never had a transfusion or anesthesia. Past Psychological History: Anxiety Smoking Status: Never smoker Past Alcohol Use History: Occasional Past Drug Use History: Marijuana - Past Family History Father Family Medical History: Asthma, Hypertension Additional Family Medical History / Comment(s): back issues with sciatica and herniated discs Mother History Unknown: Yes Brother(s) Additional Family Medical History / Comment(s): crohns, borderline diabetic Sister(s) Family Medical History: No Reported History Son(s) Family Medical History: No Reported History General Exam Limitations: no limitations General appearance: alert, in no apparent distress Head exam: Present: atraumatic, normocephalic, normal inspection Eye exam: Present: normal appearance, PERRL, EOMI. Absent: scleral icterus, conjunctival injection, periorbital swelling Respiratory exam: Present: normal lung sounds bilaterally. Absent: respiratory distress, wheezes, rales, rhonchi, stridor Cardiovascular Exam: Present: regular rate, normal rhythm, normal heart sounds. Absent: systolic murmur, diastolic murmur, rubs, gallop, clicks Right Shoulder Exam: Present: normal inspection, full ROM, tenderness (trapezius). Absent: swelling, laceration, ecchymosis, deformity, crepitus, erythema, tenderness over AC joint Upper Arm exam: Present: normal inspection, full ROM. Absent: tenderness, swelling, abrasion Neurological exam: Present: alert, oriented X3, CN II-XII intact Psychiatric exam: Present: normal affect, anxious. Absent: normal mood Skin exam: Present: warm, dry, intact, normal color. Absent: rash Course Vital Signs 04/03/23 04/03/23 19:09 22:11 Temperature 96.2 F L Pulse Rate 102 H Respiratory 16 20 Rate Blood Pressure 112/81 O2 Sat by Pulse 100 Oximetry Medical Decision Making - Medical Decision Making Was pt. sent in by a medical professional or institution (, PA, CLINICAL NURSE EDUCATOR, urgent care, hospital, or fdc...) When possible be specific @ -No Did you speak to anyone other than the patient for history (EMS, parent, family, police, friend...)? What history was obtained from this source @ -No Did you review nursing and triage notes (agree or disagree)? Why? @ -I reviewed and agree with nursing and triage notes Were old charts reviewed (outside hosp., previous admission, EMS record, old EKG, old radiological studies, urgent care reports/EKG's, fdc records)? Report findings @ -No old charts were reviewed Differential Diagnosis (chest pain, altered mental status, abdominal pain women, abdominal pain men, vaginal bleeding, weakness, fever, dyspnea, syncope, headache, dizziness, GI bleed, back pain, seizure, CVA, palpatations, mental health)? @ -Shoulder sprain, shoulder fracture, impingement. This list is not meant to be all-inclusive EKG interpreted by me (3pts min.). @ -As above X-rays interpreted by me (1pt min.). @ -None done CT interpreted by me (1pt min.). @ -None done U/S interpreted by me (1pt. min.). @ -None done What testing was considered but not performed or refused? (CT, X-rays, U/S, labs)? Why? @ -Considered imaging or patient states she has had x-rays done and she has not had reinjury. This is a chronic pain. What meds were considered but not given or refused? Why? @ -None Did you discuss the management of the patient with other professionals (professionals i.e. , PA, CLINICAL NURSE EDUCATOR, lab, RT, psych nurse, social media sr strategy manager, cryptographer, teacher, professional security officer, case loader operator)? Give summary @ -No Was smoking cessation discussed for >3mins.? @ -No Was critical care preformed (if so, how long)? @ -No Were there social determinants of health that impacted care today? How? (Homelessness, low income, unemployed, alcoholism, drug addiction, transportation, low edu. Level, literacy, decrease access to med. care, [facility], rehab)? @ -No Was there de-escalation of care discussed even if they declined (Discuss DNR or withdrawal of care, Hospice)? DNR status @ -No What co-morbidities impacted this encounter? (DM, HTN, Smoking, COPD, CAD, Cancer, CVA, ARF, Chemo, Hep., AIDS, mental health diagnosis, sleep apnea, morbid obesity)? @ -None] Was patient admitted / discharged? Hospital course, mention meds given and route, prescriptions, significant lab abnormalities, going to OR and other pertinent info. @ -Discharged. Patient has chronic pain which was treated in the emergency department. I did offer orthopedic referral however patient states they do not take her insurance. Patient to continue physical therapy Undiagnosed new problem with uncertain prognosis? @ -[No] Drug Therapy requiring intensive monitoring for toxicity (Heparin, Nitro, Insulin, Cardizem)? @ -[No] Were any procedures done? @ -[No] Diagnosis/symptom? @ -Right shoulder pain Acute, or Chronic, or Acute on Chronic? @ -Acute on chronic Uncomplicated (without systemic symptoms) or Complicated (systemic symptoms)? @ -Uncomplicated Side effects of treatment? @ -[No] Exacerbation, Progression, or Severe Exacerbation? @ -[No] Poses a threat to life or bodily function? How? (Chest pain, [place], [place], pneumonia, PE, COPD, DKA, ARF, appy, cholecystitis, CVA, Diverticulitis, Homicidal, Suicidal, threat to staff... and all critical care pts) @ -[No] Dr. Elizabeth is my attending Disposition Clinical Impression: Right shoulder pain Disposition: HOME SELF-CARE Condition: Good Instructions (If sedation given, give patient instructions): P.R.I.C.E. Tr eatment (ED) Additional Instructions: Continue physical therapy. Follow-up with data analytics specialist in 1-2 days. Return to emergency department if you experience new, concerning, or worsening symptoms. Is patient prescribed a controlled substance at d/c from ED?: No Referrals: Edilma Vickers MD [Primary Care Provider] - 1-2 days
[2023-04-03 22:12] VITALS: RESP 20
== END 2023-04-03 22:16 | disposition home or self-care (01) ==
LOC: EC 18:40
DX: M25.511 Pain in right shoulder (principal); Z88.8 Allergy status to other drugs, medicaments and biological substances; Z86.59 Personal history of other mental and behavioral disorders
CPT/HCPCS: 99283; 96372; J2270

== ENCOUNTER → 2023-07-19 | Outpatient (CLI) | payer OTHER ==
--- NOTE | 2023-07-19 12:13 | XR ---
2 views right clavicle. DATE: 07/19/2023. COMPARISON: None available. CLINICAL HISTORY: Pain in right clavicle. IMPRESSION: No clavicular fractures are seen. There is mild spurring at the acromial clavicular joint.
== END | disposition home or self-care (01) ==
LOC: RADXRMAIN 11:32
PROVIDERS: ATTEND Family Medicine
DX: S42.031S Displaced fracture of lateral end of right clavicle, sequela (principal); M25.712 Osteophyte, left shoulder; X58.XXXS Exposure to other specified factors, sequela

== ENCOUNTER 2023-11-15 22:14 | Emergency (ER) | payer OTHER ==
[2023-11-15 22:51] VITALS: BP 119/65; PULSE 123; RESP 20; TEMP 98.1
[2023-11-15 23:13] LABS: Basophils # (A) 0.1 k/uL (0-0.2); Basophils % (A) 1 %; Eosinophils # (A) 0.2 k/uL (0-0.7); Eosinophils % (A) 2 %; HCT 41.2 % (34.0-46.0); HGB 13.8 gm/dL (11.4-16.0); Lymphocytes # (A) 2.7 k/uL (1.0-4.8); Lymphocytes % (A) 37 %; MCH 32.8 pg (25.0-35.0); MCHC 33.4 g/dL (31.0-37.0); MCV 98.1 fL (80.0-100.0); Mean Platelet Volume 6.6; Monocytes # (A) 0.5 k/uL (0-1.0); Monocytes % (A) 7 %; Neutrophils # (A) 3.7 k/uL (1.3-7.7); Neutrophils % (A) 51 %; Platelet Count 406 k/uL (150-450); RDW 11.9 % (11.5-15.5); WBC 7.3 k/uL (3.8-10.6)
[2023-11-15 23:26] LABS: Appearance,Urine Clear (Clear); Bilirubin,Urine Negative (Negative); Blood,Urine Negative (Negative); Color,Urine Light Yellow; Glucose,Urine (UA) Negative (Negative); Ketones,Urine Negative (Negative); Leukocyte Esterase,Urine Negative (Negative); Nitrite,Urine Negative (Negative); Protein,Urine Negative (Negative); Specific Gravity,Urine 1.013 (1.001-1.035); Urobilinogen,Urine <2.0 mg/dL (<2.0)
[2023-11-15 23:32] LABS: ALT 11 U/L (4-34); AST 22 U/L (14-36); African American GFR (CKD) >90 (>60 ml/min/1.73 sqM); Albumin 4.3 g/dL (3.5-5.0); Alcohol <10 mg/dL; Alkaline Phosphatase 52 U/L (38-126); Amylase 74 U/L (30-110); Anion Gap 6 mmol/L; Blood Urea Nitrogen 10 mg/dL (7-17); Calcium 9.4 mg/dL (8.4-10.2); Carbon Dioxide 26 mmol/L (22-30); Chloride 104 mmol/L (98-107); Glucose 88 mg/dL (74-99); Lipase 157 U/L (23-300); Non-African American GFR(CKD) >90 (>60 ml/min/1.73 sqM); Potassium 3.9 mmol/L (3.5-5.1); Sodium 136 mmol/L (137-145); Total Bilirubin 0.4 mg/dL (0.2-1.3)
[2023-11-16] MEDS ORDERED: MORPHINE SULFATE 4 MG/ML SYRINGE IVP STA (00:38)
--- NOTE | 2023-11-16 00:40 | ED ---
Abdominal Pain HPI - General Chief Complaint: Abdominal Pain Stated Complaint: Pancreatitis Time Seen by Provider: 11/16/23 00:01 Source: patient Mode of arrival: ambulatory Limitations: no limitations - History of Present Illness Initial Comments: 37-year-old female presented to the ED with a chief complaint of abdominal pain. Patient states she has had intermittent abdominal pain and nausea for the past 2 weeks. Patient states a week ago was seen by her PCP was told she had pancreatitis. Patient was prescribed Bactrim, Zofran, omeprazole, and [place]. Despite this, reports continued pain probably presentation to the ED for further evaluation. Pain is not worsened in nature. No urinary symptoms. No changes in bowel habits. No chest pain or shortness of breath. No other complaints. - Related Data Home Medications Medication Instructions Recorded Confirmed Baclofen [Lioresal] 10 mg PO TID 11/11/21 03/15/22 Cholecalciferol [Vitamin D3 (25 50 mcg PO DAILY 11/11/21 03/15/22 Mcg = 1000 Iu)] HYDROcodone/APAP 10-325MG [[place] 1 tab PO TID 11/11/21 03/15/22 10-325] Melatonin [Melatonin ER] 20 mg PO HS PRN 11/11/21 03/15/22 Meloxicam 15 mg PO DAILY 11/11/21 03/15/22 Pregabalin [Lyrica] 150 mg PO TID 11/11/21 03/15/22 Venlafaxine HCl [Effexor XR] 150 mg PO QAM 11/11/21 03/15/22 busPIRone HCL 15 mg PO TID 11/11/21 03/15/22 Cyclobenzaprine [Flexeril] 10 mg PO HS 03/14/22 03/15/22 Ferrous Sulfate [Iron (65 MG 1 tab PO DAILY 03/14/22 03/15/22 Elemental)] Multivitamins, Thera [Multivitamin 1 tab PO DAILY 03/14/22 03/15/22 (formulary)] Thyroid,Pork [[place] Thyroid] 15 mg PO QAM 03/14/22 03/15/22 Previous Rx's Medication Instructions Recorded Pregabalin [Lyrica] 150 mg PO TID #90 cap 03/19/22 Sennosides/Docusate Sodium [Senna 1 each PO DAILY #20 tablet 03/19/22 Plus 8.6-50 mg Tablet] cefaDROXiL [Duricef] 500 mg PO Q12HR 5 Days #10 cap 03/19/22 oxyCODONE HCL [oxyCODONE HCL (IR)] 10 mg PO Q4H PRN #56 tab 03/19/22 Allergies Allergy/AdvReac Type Severity Reaction Status Date / Time ketorolac [From Toradol] Allergy Rash/Hives Verified 11/15/23 22:43 tramadol Allergy Rash/Hives Verified 11/15/23 22:43 Review of Systems ROS Statement: Those systems with pertinent positive or pertinent negative responses have been documented in the HPI. ROS Other: All systems not noted in ROS Statement are negative. Past Medical History Past Medical History: Thyroid Disorder Additional Past Medical History / Comment(s): herniated disc with chronic lower back pain radiating down legs, history of tingling and pain za wrists and hands (resolved), hives History of Any Multi-Drug Resistant Organisms: None Reported Past Surgical History: Back Surgery Past Anesthesia/Blood Transfusion Reactions: No Reported Reaction Additional Past Anesthesia/Blood Transfusion Reaction / Comment(s): Patient has never had a transfusion or anesthesia. Past Psychological History: Anxiety Smoking Status: Never smoker Past Alcohol Use History: Occasional Past Drug Use History: Marijuana - Past Family History Father Family Medical History: Asthma, Hypertension Additional Family Medical History / Comment(s): back issues with sciatica and herniated discs Mother History Unknown: Yes Brother(s) Additional Family Medical History / Comment(s): crohns, borderline diabetic Sister(s) Family Medical History: No Reported History Son(s) Family Medical History: No Reported History General Exam Limitations: no limitations General appearance: alert, in no apparent distress Eye exam: Present: normal appearance Neck exam: Present: normal inspection Respiratory exam: Present: normal lung sounds bilaterally Cardiovascular Exam: Present: regular rate, normal rhythm GI/Abdominal exam: Present: soft (Diffuse abdominal tenderness to palpation. No rebound guarding or rigidity. No CVA tenderness to percussion.) Neurological exam: Present: alert, oriented X3 Skin exam: Present: warm, dry Course Vital Signs 11/15/23 22:41 Temperature 98.1 F Pulse Rate 123 H Respiratory 20 Rate Blood Pressure 119/65 O2 Sat by Pulse 94 L Oximetry Medical Decision Making - Medical Decision Making Was pt. sent in by a medical professional or institution (, PARAM, PROOF CLERK, urgent care, hospital, or long term...) When possible be specific @ -No Did you speak to anyone other than the patient for history (EMS, parent, family, police, friend...)? What history was obtained from this source @ -No Did you review nursing and triage notes (agree or disagree)? Why? @ -I reviewed and agree with nursing and triage notes Were old charts reviewed (outside hosp., previous admission, EMS record, old EKG, old radiological studies, urgent care reports/EKG's, long term records)? Report findings @ -No old charts were reviewed Differential Diagnosis (chest pain, altered mental status, abdominal pain women, abdominal pain men, vaginal bleeding, weakness, fever, dyspnea, syncope, headache, dizziness, GI bleed, back pain, seizure, CVA, palpatations, mental health, musculoskeletal)? @ -Differential Abdominal Pain Women: Appendicitis, Cholecystitis, diverticulosis, ischemic bowel, pancreatitis, hepatitis, UTI, gastroenteritis, AAA, incarcerated hernia, bowel obstruction, constipation, inflammatory bowel, hepatitis, peptic ulcer disease, splenic infarction, perforated viscus, vulvitis, ovarian torsion, PID, kidney stone, placenta abruption, this is not meant to be an all-inclusive list EKG interpreted by me (3pts min.). @ -None X-rays interpreted by me (1pt min.). @ -None done CT interpreted by me (1pt min.). @ -None done U/S interpreted by me (1pt. min.). @ -None done What testing was considered but not performed or refused? (CT, X-rays, U/S, labs)? Why? @ -None What meds were considered but not given or refused? Why? @ -None Did you discuss the management of the patient with other professionals ( professionals i.e. PARAM Olivo, PROOF CLERK, lab, RT, psych nurse, social media project manager, inside sales representative, teacher, penal officer, onsite case manager)? Give summary @ -No Was smoking cessation discussed for >3mins.? @ -No Was critical care preformed (if so, how long)? @ -No Were there social determinants of health that impacted care today? How? (Homelessness, low income, unemployed, alcoholism, drug addiction, transpo rtation, low edu. Level, literacy, decrease access to med. care, correction, rehab)? @ -No Was there de-escalation of care discussed even if they declined (Discuss DNR or withdrawal of care, Hospice)? DNR status @ -No What co-morbidities impacted this encounter? (DM, HTN, Smoking, COPD, CAD, Cancer, CVA, ARF, Chemo, Hep., AIDS, mental health diagnosis, sleep apnea, morbid obesity)? @ -None Was patient admitted / discharged? Hospital course, mention meds given and route, prescriptions, significant lab abnormalities, going to OR and other pertinent info. @ -Discharge 37-year-old female presented to the ED with complaints of continued upper abdominal pain and nausea for the past 2 weeks. Laboratory studies here reviewed. CBC, chemistry panel, amylase lipase, UA unremarkable. Patient discharged home in stable condition. Advised her to continue previously pres cribed medications. Discussed return precautions with patient who verbalizes agreement. Undiagnosed new problem with uncertain prognosis? @ -No Drug Therapy requiring intensive monitoring for toxicity (Heparin, Nitro, Insulin, Cardizem)? @ -No Were any procedures done? @ -No Diagnosis/symptom? @ -Abdominal pain Acute, or Chronic, or Acute on Chronic? @ -Acute Uncomplicated (without systemic symptoms) or Complicated (systemic symptoms)? @ -Uncomplicated Side effects of treatment? @ -No Exacerbation, Progression, or Severe Exacerbation? @ -No Poses a threat to life or bodily function? How? (Chest pain, [place], [place], pneumonia, PE, COPD, DKA, ARF, appy, cholecystitis, CVA, Diverticulitis, Homicidal, Suicidal, threat to staff... and all critical care pts) @ -No - Lab Data Result diagrams: 11/15/23 22:45 11/15/23 22:45 Lab Results 11/15/23 11/15/23 11/15/23 Range/Units 22:45 22:45 22:45 WBC 7.3 (3.8-10.6) k/uL RBC 4.20 (3.80-5.40) m/uL Hgb 13.8 (11.4-16.0) gm/dL Hct 41.2 (34.0-46.0) % MCV 98.1 (80.0-100.0) fL MCH 32.8 (25.0-35.0) pg MCHC 33.4 (31.0-37.0) g/dL RDW 11.9 (11.5-15.5) % Plt Count 406 (150-450) k/uL MPV 6.6 Neutrophils % 51 % Lymphocytes % 37 % Monocytes % 7 % Eosinophils % 2 % Basophils % 1 % Neutrophils # 3.7 (1.3-7.7) k/uL Lymphocytes # 2.7 (1.0-4.8) k/uL Monocytes # 0.5 (0-1.0) k/uL Eosinophils # 0.2 (0-0.7) k/uL Basophils # 0.1 (0-0.2) k/uL Sodium 136 L (137-145) mmol/L Potassium 3.9 (3.5-5.1) mmol/L Chloride 104 (98-107) mmol/L Carbon Dioxide 26 (22-30) mmol/L Anion Gap 6 mmol/L BUN 10 (7-17) mg/dL Creatinine 0.67 (0.52-1.04) mg/dL Est GFR (CKD-EPI)AfAm >90 (>60 ml/min/1.73 sqM) Est GFR (CKD-EPI)NonAf >90 (>60 ml/min/1.73 sqM) Glucose 88 (74-99) mg/dL Calcium 9.4 (8.4-10.2) mg/dL Total Bilirubin 0.4 (0.2-1.3) mg/dL AST 22 (14-36) U/L ALT 11 (4-34) U/L Alkaline Phosphatase 52 (38-126) U/L Total Protein 7.0 (6.3-8.2) g/dL Albumin 4.3 (3.5-5.0) g/dL Amylase 74 (30-110) U/L Lipase 157 (23-300) U/L Urine Color Light Yellow Urine Appearance Clear (Clear) Urine pH 6.0 (5.0-8.0) Ur Specific [place] 1.013 (1.001-1.035) Urine Protein Negative (Negative) Urine Glucose (UA) Negative (Negative) Urine Ketones Negative (Negative) Urine Blood Negative (Negative) Urine Nitrite Negative (Negative) Urine Bilirubin Negative (Negative) Urine Urobilinogen <2.0 (<2.0) mg/dL Ur Leukocyte Esterase Negative (Negative) Serum Alcohol <10 mg/dL Disposition Clinical Impression: Abdominal pain Disposition: HOME SELF-CARE Condition: Good Instructions (If sedation given, give patient instructions): Pancreatitis (ED) Additional Instructions: Please return to the Emergency Department if symptoms worsen or any other concerns. Follow up with your primary care provider. Continue previously prescribed medications. Is patient prescribed a controlled substance at d/c from ED?: No Referrals: Edilma Vickers MD [Primary Care Provider] - 1-2 days Time of Disposition: 00:43
== END 2023-11-16 01:23 | disposition home or self-care (01) ==
LOC: EC 22:14
DX: R10.84 Generalized abdominal pain (principal); R11.0 Nausea; E07.9 Disorder of thyroid, unspecified; F41.9 Anxiety disorder, unspecified; F12.90 Cannabis use, unspecified, uncomplicated; Z79.890 Hormone replacement therapy; Z79.899 Other long term (current) drug therapy; Z88.5 Allergy status to narcotic agent; Z88.6 Allergy status to analgesic agent
CPT/HCPCS: 36415; 80053; 82150; 83690; 85025; 81003; 99284; 96374; G0480; 80320

== ENCOUNTER 2023-11-19 18:04 | Emergency (ER) | payer OTHER ==
[2023-11-19] MEDS ORDERED: ONDANSETRON 4 MG/2 ML VIAL IVP STA (18:21)
[2023-11-19] MEDS ORDERED: MORPHINE SULFATE 4 MG/ML SYRINGE IVP STA (18:21)
[2023-11-19] MEDS ORDERED: SODIUM CHLORIDE 0.9% 1,000 ML IV STA (18:21)
[2023-11-19 18:22] VITALS: TEMP 97.8
[2023-11-19 18:57] LABS: Basophils # (A) 0.1 k/uL (0-0.2); Basophils % (A) 1 %; Eosinophils # (A) 0.1 k/uL (0-0.7); Eosinophils % (A) 2 %; HCT 38.6 % (34.0-46.0); Lymphocytes # (A) 1.8 k/uL (1.0-4.8); Lymphocytes % (A) 33 %; MCH 33.1 pg (25.0-35.0); MCHC 33.8 g/dL (31.0-37.0); Mean Platelet Volume 6.8; Monocytes # (A) 0.4 k/uL (0-1.0); Monocytes % (A) 6 %; Neutrophils % (A) 54 %; Platelet Count 376 k/uL (150-450); RBC 3.94 m/uL (3.80-5.40); RDW 11.9 % (11.5-15.5); WBC 5.5 k/uL (3.8-10.6)
[2023-11-19 19:07] LABS: INR 0.9 (<1.2); Partial Thromboplastin Time 24.1 sec (22.0-30.0); Prothrombin Time 10.3 sec (10.0-12.5)
[2023-11-19 19:08] LABS: ALT 11 U/L (4-34); AST 18 U/L (14-36); African American GFR (CKD) >90 (>60 ml/min/1.73 sqM); Alkaline Phosphatase 50 U/L (38-126); Amylase 57 U/L (30-110); Anion Gap 6 mmol/L; Blood Urea Nitrogen 9 mg/dL (7-17); Carbon Dioxide 24 mmol/L (22-30); Chloride 105 mmol/L (98-107); Glucose 87 mg/dL (74-99); Lipase 131 U/L (23-300); Non-African American GFR(CKD) >90 (>60 ml/min/1.73 sqM); Potassium 4.2 mmol/L (3.5-5.1); Sodium 135 mmol/L (137-145); Total Bilirubin 0.3 mg/dL (0.2-1.3); Total Protein 6.6 g/dL (6.3-8.2)
--- NOTE | 2023-11-19 19:38 | ED ---
Abdominal Pain HPI - General Chief Complaint: Abdominal Pain Stated Complaint: Upper Abd Pain Time Seen by Provider: 11/19/23 18:13 Source: patient, family Mode of arrival: ambulatory Limitations: no limitations - History of Present Illness Initial Comments: 37-year-old female presenting with chief complaint of abdominal pain. Patient is complaining of sharp epigastric pain. Patient has had vague epigastric pain for a few weeks prior to this, she was told by her PCP that she had pancreatitis, however her enzymes were within normal limits. She states that this afternoon she had a sudden sharp increase in this pain. She also admits to nausea and vomiting. No fevers. No history of abdominal surgeries. No diarrhea, hematochezia, melena. No urinary symptoms. No chest pain or difficulty breathing. - Related Data Home Medications Medication Instructions Recorded Confirmed Baclofen [Lioresal] 10 mg PO TID 11/11/21 03/15/22 Cholecalciferol [Vitamin D3 (25 50 mcg PO DAILY 11/11/21 03/15/22 Mcg = 1000 Iu)] HYDROcodone/APAP 10-325MG [[place] 1 tab PO TID 11/11/21 03/15/22 10-325] Melatonin [Melatonin ER] 20 mg PO HS PRN 11/11/21 03/15/22 Meloxicam 15 mg PO DAILY 11/11/21 03/15/22 Pregabalin [Lyrica] 150 mg PO TID 11/11/21 03/15/22 Venlafaxine HCl [Effexor XR] 150 mg PO QAM 11/11/21 03/15/22 busPIRone HCL 15 mg PO TID 11/11/21 03/15/22 Cyclobenzaprine [Flexeril] 10 mg PO HS 03/14/22 03/15/22 Ferrous Sulfate [Iron (65 MG 1 tab PO DAILY 03/14/22 03/15/22 Elemental)] Multivitamins, Thera [Multivitamin 1 tab PO DAILY 03/14/22 03/15/22 (formulary)] Thyroid,Pork [[employer] Mdl Thyroid] 15 mg PO QAM 03/14/22 03/15/22 Previous Rx's Medication Instructions Recorded Pregabalin [Lyrica] 150 mg PO TID #90 cap 03/19/22 Sennosides/Docusate Sodium [Senna 1 each PO DAILY #20 tablet 03/19/22 Plus 8.6-50 mg Tablet] cefaDROXiL [Duricef] 500 mg PO Q12HR 5 Days #10 cap 03/19/22 oxyCODONE HCL [oxyCODONE HCL (IR)] 10 mg PO Q4H PRN #56 tab 03/19/22 Dicyclomine [Bentyl] 20 mg PO QID PRN #20 tablet 11/20/23 Pantoprazole [Protonix] 40 mg PO DAILY #15 tab 11/20/23 Allergies Allergy/AdvReac Type Severity Reaction Status Date / Time ketorolac [From Toradol] Allergy Rash/Hives Verified 11/15/23 22:43 tramadol Allergy Rash/Hives Verified 11/15/23 22:43 Review of Systems ROS Statement: Those systems with pertinent positive or pertinent negative responses have been documented in the HPI. ROS Other: All systems not noted in ROS Statement are negative. Past Medical History Past Medical History: Thyroid Disorder Additional Past Medical History / Comment(s): herniated disc with chronic lower back pain radiating down legs, history of tingling and pain za wrists and hands (resolved), hives. pancreatitis History of Any Multi-Drug Resistant Organisms: None Reported Past Surgical History: Back Surgery Past Anesthesia/Blood Transfusion Reactions: No Reported Reaction Additional Past Anesthesia/Blood Transfusion Reaction / Comment(s): Patient has never had a transfusion or anesthesia. Past Psychological History: Anxiety, Depression Smoking Status: Never smoker Past Alcohol Use History: Occasional Past Drug Use History: Marijuana - Past Family History Father Family Medical History: Asthma, Hypertension Additional Family Medical History / Comment(s): back issues with sciatica and herniated discs Mother History Unknown: Yes Brother(s) Additional Family Medical History / Comment(s): crohns, borderline diabetic Sister(s) Family Medical History: No Reported History Son(s) Family Medical History: No Reported History General Exam Limitations: no limitations General appearance: alert, in no apparent distress Head exam: Present: atraumatic, normocephalic Eye exam: Present: normal appearance, EOMI Neck exam: Present: normal inspection Respiratory exam: Present: normal lung sounds bilaterally. Absent: respiratory distress, wheezes, rales, rhonchi, stridor Cardiovascular Exam: Present: regular rate, normal rhythm, normal heart sounds. Absent: systolic murmur, diastolic murmur, rubs, gallop, clicks GI/Abdominal exam: Present: soft, tenderness (Right upper quadrant). Absent: distended, guarding, rebound, rigid Neurological exam: Present: alert, oriented X3 Psychiatric exam: Present: normal affect, normal mood Skin exam: Present: warm, dry Course Vital Signs 11/19/23 11/19/23 11/19/23 18:06 19:59 23:44 Temperature 97.8 F Pulse Rate 93 81 86 Respiratory 16 18 18 Rate Blood Pressure 124/73 111/71 108/77 O2 Sat by Pulse 98 96 96 Oximetry 11/20/23 00:55 Temperature Pulse Rate 73 Respiratory 17 Rate Blood Pressure 97/75 O2 Sat by Pulse 97 Oximetry Medical Decision Making - Medical Decision Making Was pt. sent in by a medical professional or institution (, PA, LEAD DENTAL ASSISTANT, urgent care, hospital, or [facility]...) When possible be specific @ -No Did you speak to anyone other than the patient for history (EMS, parent, family, police, friend...)? What history was obtained from this source @ -No Did you review nursing and triage notes (agree or disagree)? Why? @ -I reviewed and agree with nursing and triage notes Were old charts reviewed (outside hosp., previous admission, EMS record, old EKG, old radiological studies, urgent care reports/EKG's, [facility] records)? Report findings @ -No old charts were reviewed Differential Diagnosis (chest pain, altered mental status, abdominal pain women, abdominal pain men, vaginal bleeding, weakness, fever, dyspnea, syncope, headache, dizziness, GI bleed, back pain, seizure, CVA, palpatations, mental health, musculoskeletal)? @ -MDM Differential Abdominal Pain Women: Appendicitis, Cholecystitis, diverticulosis, ischemic bowel, pancreatitis, hepatitis, UTI, gastroenteritis, AAA, incarcerated hernia, bowel obstruction, constipation, inflammatory bowel, hepatitis, peptic ulcer disease, splenic infarction, perforated viscus, vulvitis, ovarian torsion, PID, kidney stone, placenta abruption... This is not meant to be an all-inclusive list EKG interpreted by me (3pts min.). @ -Sinus rhythm ventricular rate 87. ME interval 147. QRS 90. QT 350. QTC 395. Normal axis. X-rays interpreted by me (1pt min.). @ -KUB x-ray shows nonspecific likely nonobstructive bowel gas pattern. No free air detected. If concern persists consider follow-up radiographs and/or CT CT interpreted by me (1pt min.). @ -None done U/S interpreted by me (1pt. min.). @ -Ultrasound shows mild hepatomegaly and hepatic steatosis. Isoechoic masslike 5.2 cm lesion in the right hepatic lobe, uncertain cause. Further kervin acterization with nonemergent outpatient MRI may be of benefit. Mild gallbladder adenomyomatosis. Mildly dilated CBD, Correlate clinically with LFTs. Pancreatic head and secured. What testing was considered but not performed or refused? (CT, X-rays, U/S, labs)? Why? @ -None What meds were considered but not given or refused? Why? @ -None Did you discuss the management of the patient with other professionals (professionals i.e. , PA, LEAD DENTAL ASSISTANT, lab, RT, psych nurse, social service agency director, parking regulation enforcement officer, teacher, recreation officer, field nurse case manager)? Give summary @ -No Was smoking cessation discussed for >3mins.? @ -No Was critical care preformed (if so, how long)? @ -No Were there social determinants of health that impacted care today? How? (Homelessness, low income, unemployed, alcoholism, drug addiction, transportation, low edu. Level, literacy, decrease access to med. care, halfway, rehab)? @ -No Was there de-escalation of care discussed even if they declined (Discuss DNR or withdrawal of care, Hospice)? DNR status @ -No What co-morbidities impacted this encounter? (DM, HTN, Smoking, COPD, CAD, Cancer, CVA, ARF, Chemo, Hep., AIDS, mental health diagnosis, sleep apnea, morbid obesity)? @ -None Was patient admitted / discharged? Hospital course, mention meds given and route, prescriptions, significant lab abnormalities, going to OR and other pertinent info. @ -37-year-old female presenting with chief complaint of epigastric pain. History and physical exam were conducted. Lab work shows no leukocytosis or anemia. LFTs are WNL. Negative troponin. Amylase and lipase are WNL. Urine shows no infectious process or bleeding and hCG is negative. EKG shows sinus rhythm KUB shows no free air. Ultrasound shows. Hepatomegaly with hepatic steatosis. There is isoechoic masslike 5.2 cm lesion in the right hepatic lobe. There is a mildly dilated CBD and mild gallbladder adenomyomatosis. Give that the patient has normal LFTs and normal bilirubin, she may follow up outpatient. She is provided with GI referral and she is educated on her imaging findings today, as well as the need for follow-up. Follow-up with PCP. Report back to ER with any new or worsening symptoms. Discussed return parameters and answered all questions. Patient conveyed verbal understanding and agreed to the plan. I discussed this case in detail with my attending Dr. Edward Undiagnosed new problem with uncertain prognosis? @ -No Drug Therapy requiring intensive monitoring for toxicity (Heparin, Nitro, Insulin, Cardizem)? @ -No Were any procedures done? @ -No Diagnosis/symptom? @ -Abdominal pain Acute, or Chronic, or Acute on Chronic? @ -Acute Uncomplicated (without systemic symptoms) or Complicated (systemic symptoms)? @ -Uncomplicated Side effects of treatment? @ -No Exacerbation, Progression, or Severe Exacerbation? @ -No Poses a threat to life or bodily function? How? (Chest pain, [place], [place], pneumonia, PE, COPD, DKA, ARF, appy, cholecystitis, CVA, Diverticulitis, Homicidal, Suicidal, threat to staff... and all critical care pts) @ -Low likelihood - Lab Data Result diagrams: 11/19/23 18:40 11/19/23 18:40 Lab Results 11/19/23 11/19/23 11/19/23 Range/Units 18:40 18:40 18:40 WBC 5.5 (3.8-10.6) k/uL RBC 3.94 (3.80-5.40) m/uL Hgb 13.0 (11.4-16.0) gm/dL Hct 38.6 (34.0-46.0) % MCV 98.0 (80.0-100.0) fL MCH 33.1 (25.0-35.0) pg MCHC 33.8 (31.0-37.0) g/dL RDW 11.9 (11.5-15.5) % Plt Count 376 (150-450) k/uL MPV 6.8 Neutrophils % 54 % Lymphocytes % 33 % Monocytes % 6 % Eosinophils % 2 % Basophils % 1 % Neutrophils # 3.0 (1.3-7.7) k/uL Lymphocytes # 1.8 (1.0-4.8) k/uL Monocytes # 0.4 (0-1.0) k/uL Eosinophils # 0.1 (0-0.7) k/uL Basophils # 0.1 (0-0.2) k/uL PT 10.3 (10.0-12.5) sec INR 0.9 (<1.2) APTT 24.1 (22.0-30.0) sec Sodium (137-145) mmol/L Potassium (3.5-5.1) mmol/L Chloride (98-107) mmol/L Carbon Dioxide (22-30) mmol/L Anion Gap mmol/L BUN (7-17) mg/dL Creatinine (0.52-1.04) mg/dL Est GFR (CKD-EPI)AfAm (>60 ml/min/1.73 sqM) Est GFR (CKD-EPI)NonAf (>60 ml/min/1.73 sqM) Glucose (74-99) mg/dL Plasma Lactic Acid Saurabh (0.7-2.0) mmol/L Calcium (8.4-10.2) mg/dL Total Bilirubin (0.2-1.3) mg/dL AST (14-36) U/L ALT (4-34) U/L Alkaline Phosphatase (38-126) U/L Troponin I (0.000-0.034) ng/mL Total Protein (6.3-8.2) g/dL Albumin (3.5-5.0) g/dL Amylase (30-110) U/L Lipase (23-300) U/L Urine Color Colorless Urine Appearance Clear (Clear) Urine pH 6.5 (5.0-8.0) Ur Specific [place] 1.007 (1.001-1.035) Urine Protein Negative (Negative) Urine Glucose (UA) Negative (Negative) Urine Ketones Negative (Negative) Urine Blood Negative (Negative) Urine Nitrite Negative (Negative) Urine Bilirubin Negative (Negative) Urine Urobilinogen <2.0 (<2.0) mg/dL Ur Leukocyte Esterase Negative (Negative) Urine HCG, Qual (Not Detectd) 11/19/23 11/19/23 11/19/23 Range/Units 18:40 18:40 18:40 WBC (3.8-10.6) k/uL RBC (3.80-5.40) m/uL Hgb (11.4-16.0) gm/dL Hct (34.0-46.0) % MCV (80.0-100.0) fL MCH (25.0-35.0) pg MCHC (31.0-37.0) g/dL RDW (11.5-15.5) % Plt Count (150-450) k/uL MPV Neutrophils % % Lymphocytes % % Monocytes % % Eosinophils % % Basophils % % Neutrophils # (1.3-7.7) k/uL Lymphocytes # (1.0-4.8) k/uL Monocytes # (0-1.0) k/uL Eosinophils # (0-0.7) k/uL Basophils # (0-0.2) k/uL PT (10.0-12.5) sec INR (<1.2) APTT (22.0-30.0) sec Sodium 135 L (137-145) mmol/L Potassium 4.2 (3.5-5.1) mmol/L Chloride 105 (98-107) mmol/L Carbon Dioxide 24 (22-30) mmol/L Anion Gap 6 mmol/L BUN 9 (7-17) mg/dL Creatinine 0.68 (0.52-1.04) mg/dL Est GFR (CKD-EPI)AfAm >90 (>60 ml/min/1.73 sqM) Est GFR (CKD-EPI)NonAf >90 (>60 ml/min/1.73 sqM) Glucose 87 (74-99) mg/dL Plasma Lactic Acid Saurabh 0.6 L (0.7-2.0) mmol/L Calcium 9.0 (8.4-10.2) mg/dL Total Bilirubin 0.3 (0.2-1.3) mg/dL AST 18 (14-36) U/L ALT 11 (4-34) U/L Alkaline Phosphatase 50 (38-126) U/L Troponin I (0.000-0.034) ng/mL Total Protein 6.6 (6.3-8.2) g/dL Albumin 4.0 (3.5-5.0) g/dL Amylase 57 (30-110) U/L Lipase 131 (23-300) U/L Urine Color Urine Appearance (Clear) Urine pH (5.0-8.0) Ur Specific [place] (1.001-1.035) Urine Protein (Negative) Urine Glucose (UA) (Negative) Urine Ketones (Negative) Urine Blood (Negative) Urine Nitrite (Negative) Urine Bilirubin (Negative) Urine Urobilinogen (<2.0) mg/dL Ur Leukocyte Esterase (Negative) Urine HCG, Qual Not Detected (Not Detectd) 11/19/23 Range/Units 18:40 WBC (3.8-10.6) k/uL RBC (3.80-5.40) m/uL Hgb (11.4-16.0) gm/dL Hct (34.0-46.0) % MCV (80.0-100.0) fL MCH (25.0-35.0) pg MCHC (31.0-37.0) g/dL RDW (11.5-15.5) % Plt Count (150-450) k/uL MPV Neutrophils % % Lymphocytes % % Monocytes % % Eosinophils % % Basophils % % Neutrophils # (1.3-7.7) k/uL Lymphocytes # (1.0-4.8) k/uL Monocytes # (0-1.0) k/uL Eosinophils # (0-0.7) k/uL Basophils # (0-0.2) k/uL PT (10.0-12.5) sec INR (<1.2) APTT (22.0-30.0) sec Sodium (137-145) mmol/L Potassium (3.5-5.1) mmol/L Chloride (98-107) mmol/L Carbon Dioxide (22-30) mmol/L Anion Gap mmol/L BUN (7-17) mg/dL Creatinine (0.52-1.04) mg/dL Est GFR (CKD-EPI)AfAm (>60 ml/min/1.73 sqM) Est GFR (CKD-EPI)NonAf (>60 ml/min/1.73 sqM) Glucose (74-99) mg/dL Plasma Lactic Acid Saurabh (0.7-2.0) mmol/L Calcium (8.4-10.2) mg/dL Total Bilirubin (0.2-1.3) mg/dL AST (14-36) U/L ALT (4-34) U/L Alkaline Phosphatase (38-126) U/L Troponin I <0.012 (0.000-0.034) ng/mL Total Protein (6.3-8.2) g/dL Albumin (3.5-5.0) g/dL Amylase (30-110) U/L Lipase (23-300) U/L Urine Color Urine Appearance (Clear) Urine pH (5.0-8.0) Ur Specific [place] (1.001-1.035) Urine Protein (Negative) Urine Glucose (UA) (Negative) Urine Ketones (Negative) Urine Blood (Negative) Urine Nitrite (Negative) Urine Bilirubin (Negative) Urine Urobilinogen (<2.0) mg/dL Ur Leukocyte Esterase (Negative) Urine HCG, Qual (Not Detectd) Disposition Clinical Impression: Abdominal pain Disposition: HOME SELF-CARE Condition: Good Instructions (If sedation given, give patient instructions): Peptic Ulcer (ED), Diet for Stomach Ulcers and Gastritis (ED), Abdominal Pain (ED) Additional Instructions: Follow-up with PCP and GI. Report back to ER with any new or worsening symptoms. Prescriptions: Dicyclomine [Bentyl] 20 mg PO QID PRN #20 tablet PRN Reason: Dyspepsia Pantoprazole [Protonix] 40 mg PO DAILY #15 tab Is patient prescribed a controlled substance at d/c from ED?: No Referrals: Edilma Vickers MD [Primary Care Provider] - 1-2 days Leny Pulliam MD [STAFF PHYSICIAN] - 1-2 days Time of Disposition: 00:48
[2023-11-19 20:18] LABS: Appearance,Urine Clear (Clear); Bilirubin,Urine Negative (Negative); Blood,Urine Negative (Negative); Color,Urine Colorless; Glucose,Urine (UA) Negative (Negative); Ketones,Urine Negative (Negative); Leukocyte Esterase,Urine Negative (Negative); Nitrite,Urine Negative (Negative); PH, Urine 6.5 (5.0-8.0); Protein,Urine Negative (Negative); Specific Gravity,Urine 1.007 (1.001-1.035); Urobilinogen,Urine <2.0 mg/dL (<2.0)
[2023-11-19] MEDS ORDERED: MAG HYDROX/AL HYDROX/SIMETH 30 ML, HYOSCYAMINE ELIXIR 10 ML, LIDOCAINE VISCOUS 2% 10 ML PO STA ×3 (20:21)
[2023-11-19] MEDS ORDERED: FAMOTIDINE 20 MG/2 ML VIAL IV STA (20:21)
[2023-11-19] MEDS ORDERED: METOCLOPRAMIDE 5 MG/ML 2 ML VIAL IVP STA (20:22)
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
[2023-11-20 01:07] VITALS: BP 97/75; PULSE 73; RESP 17
--- NOTE | 2023-11-20 01:40 | XR ---
EXAMINATION TYPE: XR KUB DATE OF EXAM: 11/19/2023 8:26 PM CLINICAL INDICATION:Female, 37 years old with history of abd pain; [facility] COMPARISON: None. TECHNIQUE: Upright frontal views of the abdomen and the pelvis. FINDINGS: The bowel gas pattern is nonspecific, likely nonobstructive without dilated loops of small or large b owel. Fecal material and gas are demonstrated throughout the colon and rectum. Mild colonic stool bur den. No gross evidence of organomegaly. No evidence of pneumoperitoneum. No pathologic calcifications are seen. Osseous structures appear grossly intact. Post laminectomy changes and hardware fusion a t the lumbosacral junction. IMPRESSION: Nonspecific, likely nonobstructive bowel gas pattern. No free air detected. If concern persists, cons ider follow-up radiographs and/or CT.
== END 2023-11-20 00:56 | disposition home or self-care (01) ==
LOC: EC 18:04
DX: K83.1 Obstruction of bile duct (principal); E07.9 Disorder of thyroid, unspecified; F41.9 Anxiety disorder, unspecified; F32.A Depression, unspecified; F12.90 Cannabis use, unspecified, uncomplicated; Z79.890 Hormone replacement therapy; Z79.899 Other long term (current) drug therapy; Z88.5 Allergy status to narcotic agent
CPT/HCPCS: 36415; 93005; 80053; 82150; 83605; 83690; 84484; 85025; 85610; 85730; 81003; 81025; 74018; 76705; 99285; 96374; 96375 ×3; 96361; J2270; J2765; J2405; J3490

== ENCOUNTER → 2023-12-01 | Outpatient (CLI) | payer OTHER ==
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
== END | disposition home or self-care (01) ==
LOC: RADNMMAIN 06:47
PROVIDERS: ATTEND Family Medicine
DX: K29.00 Acute gastritis without bleeding (principal)
CPT/HCPCS: 78227; A9537; J2805

== ENCOUNTER → 2023-12-11 | Outpatient (CLI) | payer OTHER ==
--- NOTE | 2023-12-12 22:14 | MR ---
EXAMINATION TYPE: MR liver wo/w con DATE OF EXAM: 12/11/2023 6:44 PM CLINICAL INDICATION:Female, 37 years old with history of R16.0 HEPATOMEGALY, Hepatomegaly and mass. COMPARISON: 03/16/2022, 12/01/2023, 08/30/2021 TECHNIQUE: Multiplanar multi-sequence imaging was performed without contrast. Post contrast imaging was performed. Post IV contrast subtraction images were also submitted for review. IV Contrast: 7 cc Gadobutrol FINDINGS: LOWER CHEST: No gross irregularity. ABDOMEN Liver: No evidence for hepatic steatosis or cirrhosis. Right hepatic dome lesion measuring 48 x 40 x 57 mm with no significant signal dropout on chemical shift imaging. The lesion demonstrates arterial phase enhancement with peripheral discontinuous nodular progressive enhancement. Gallbladder and Bile ducts: No evidence for ductal dilation, or biliary stricture or evidence of chol edocholithiasis. The gallbladder is within normal limits. Pancreas: No ductal dilation. No evidence for solid mass. Spleen: Normal for size. Adrenal glands: Unremarkable. Kidneys: No evidence for obstructive uropathy. No suspicious renal masses. Stomach and Bowel: No evidence for bowel wall thickening or evidence for obstruction.. Peritoneum: No evidence of pneumoperitoneum or free fluid. Vasculature: No aortic aneurysm. Musculoskeletal: The osseous structures appear intact. Postsurgical changes to the spine with suscept ibility artifact. Lymph Nodes: No gross evidence for lymphadenopathy. Abdominal wall: Unremarkable. IMPRESSION: Hepatic lesion most compatible with benign hepatic hemangioma. No suspicious liver observations.
== END | disposition home or self-care (01) ==
LOC: RADMRIMAIN 16:59
PROVIDERS: ATTEND Internal Medicine Gastroenterology
DX: R16.0 Hepatomegaly, not elsewhere classified (principal)
CPT/HCPCS: 74183; A9585

== ENCOUNTER 2024-02-11 08:09 | Emergency (ER) | payer OTHER ==
--- NOTE | 2024-02-11 08:21 | ED ---
General Adult HPI - General Stated complaint: GI Issues Time Seen by Provider: 02/11/24 08:20 Source: patient, RN notes reviewed Mode of arrival: ambulatory Limitations: no limitations - History of Present Illness Initial comments: 38-year-old female presented to the ER with chief complaint of rectal bleeding. She states when she went to the bathroom this morning she noticed a large amount of blood. She also noticed a clot. Known history of hemorrhoids but states this does not feel like a hemorrhoid. She reports right lower quadrant abdominal pain as well. Denies any current fevers, chills, nausea, vomiting, diarrhea or constipation. No thinners. Did have cholecystectomy 1 month ago. - Related Data Home Medications Medication Instructions Recorded Confirmed Baclofen [Lioresal] 10 mg PO TID 11/11/21 03/15/22 Cholecalciferol [Vitamin D3 (25 50 mcg PO DAILY 11/11/21 03/15/22 Mcg = 1000 Iu)] HYDROcodone/APAP 10-325MG [[place] 1 tab PO TID 11/11/21 03/15/22 10-325] Melatonin [Melatonin ER] 20 mg PO HS PRN 11/11/21 03/15/22 Meloxicam 15 mg PO DAILY 11/11/21 03/15/22 Pregabalin [Lyrica] 150 mg PO TID 11/11/21 03/15/22 Venlafaxine HCl [Effexor XR] 150 mg PO QAM 11/11/21 03/15/22 busPIRone HCL 15 mg PO TID 11/11/21 03/15/22 Cyclobenzaprine [Flexeril] 10 mg PO HS 03/14/22 03/15/22 Ferrous Sulfate [Iron (65 MG 1 tab PO DAILY 03/14/22 03/15/22 Elemental)] Multivitamins, Thera [Multivitamin 1 tab PO DAILY 03/14/22 03/15/22 (formulary)] Thyroid,Pork [[place] Thyroid] 15 mg PO QAM 03/14/22 03/15/22 Previous Rx's Medication Instructions Recorded Pregabalin [Lyrica] 150 mg PO TID #90 cap 03/19/22 Sennosides/Docusate Sodium [Senna 1 each PO DAILY #20 tablet 03/19/22 Plus 8.6-50 mg Tablet] cefaDROXiL [Duricef] 500 mg PO Q12HR 5 Days #10 cap 03/19/22 oxyCODONE HCL [oxyCODONE HCL (IR)] 10 mg PO Q4H PRN #56 tab 03/19/22 Dicyclomine [Bentyl] 20 mg PO QID PRN #20 tablet 11/20/23 Pantoprazole [Protonix] 40 mg PO DAILY #15 tab 11/20/23 Allergies Allergy/AdvReac Type Severity Reaction Status Date / Time ketorolac [From Toradol] Allergy Rash/Hives Verified 11/15/23 22:43 tramadol Allergy Rash/Hives Verified 11/15/23 22:43 Review of Systems ROS Statement: Those systems with pertinent positive or pertinent negative responses have been documented in the HPI. ROS Other: All systems not noted in ROS Statement are negative. Past Medical History Past Medical History: Thyroid Disorder Additional Past Medical History / Comment(s): herniated disc with chronic lower back pain radiating down legs, history of tingling and pain za wrists and hands (resolved), hives. pancreatitis History of Any Multi-Drug Resistant Organisms: None Reported Past Surgical History: Back Surgery Past Anesthesia/Blood Transfusion Reactions: No Reported Reaction Additional Past Anesthesia/Blood Transfusion Reaction / Comment(s): Patient has never had a transfusion or anesthesia. Past Psychological History: Anxiety, Depression Smoking Status: Never smoker Past Alcohol Use History: Occasional Past Drug Use History: Marijuana - Past Family History Father Family Medical History: Asthma, Hypertension Additional Family Medical History / Comment(s): back issues with sciatica and herniated discs Mother History Unknown: Yes Brother(s) Additional Family Medical History / Comment(s): crohns, borderline diabetic Sister(s) Family Medical History: No Reported History Son(s) Family Medical History: No Reported History General Exam - General Exam Comments Initial Comments: Visual Physical Exam General: Well-appearing, nontoxic, no acute distress. Head: Normocephalic, atraumatic Eyes: PERRLA, EOMI ENT: Airway patent Chest: Nonlabored breathing Skin: No visual rash, normal skin tone Neuro: Alert and oriented 3 Musculoskeletal: No gross abnormalities Limitations: no limitations General appearance: alert, in no apparent distress Head exam: Present: atraumatic, normocephalic, normal inspection Eye exam: Present: normal appearance, PERRL, EOMI. Absent: scleral icterus, conjunctival injection, periorbital swelling Respiratory exam: Present: normal lung sounds bilaterally. Absent: respiratory distress, wheezes, rales, rhonchi, stridor Cardiovascular Exam: Present: regular rate, normal rhythm, normal heart sounds. Absent: systolic murmur, diastolic murmur, rubs, gallop, clicks GI/Abdominal exam: Present: soft, tenderness (Right lower quadrant. Rovsing sign), normal bowel sounds, other (To healing laparoscopic surgical scars. No surrounding erythema or drainage) Neurological exam: Present: alert, oriented X3, CN II-XII intact Skin exam: Present: warm, dry, intact, normal color. Absent: rash Course Vital Signs 02/11/24 02/11/24 08:31 11:12 Temperature 97.7 F 98.4 F Pulse Rate 83 68 Respiratory 16 18 Rate Blood Pressure 116/76 96/68 O2 Sat by Pulse 98 99 Oximetry Medical Decision Making - Medical Decision Making I performed the quick note portion of this chart. Electronically signed by Breana Alfaro PA-C Was pt. sent in by a medical professional or institution ([facility], [facility], urgent care, hospital, or half-way...) When possible be specific @ -No Did you speak to anyone other than the patient for history (EMS, parent, family, police, friend...)? What history was obtained from this source @ -No Did you review nursing and triage notes (agree or disagree)? Why? @ -I reviewed and agree with nursing and triage notes Were old charts reviewed (outside hosp., previous admission, EMS record, old EKG, old radiological studies, urgent care reports/EKG's, half-way records)? Report findings @ -No old charts were reviewed Differential Diagnosis (chest pain, altered mental status, abdominal pain women, abdominal pain men, vaginal bleeding, weakness, fever, dyspnea, syncope, headache, dizziness, GI bleed, back pain, seizure, CVA, palpatations, mental health, musculoskeletal)? @ -Differential GI Bleed:Esophageal varices, aortoenteric fistula, Zulema- Melendez, gastritis, peptic ulcer disease, diverticulosis, inflammatory bowel disease, hemorrhoids, fissure, colitis, malignancy, Meckels diverticulum, this is not meant to be an all-inclusive list. EKG interpreted by me (3pts min.). @ -None X-rays interpreted by me (1pt min.). @ -None done CT interpreted by me (1pt min.). @ -None done U/S interpreted by me (1pt. min.). @ -None done What testing was considered but not performed or refused? (CT, X-rays, U/S, labs)? Why? @ -None What meds were considered but not given or refused? Why? @ -None Did you discuss the management of the patient with other professionals (professionals i.e. DrMeghana, PA, SAMPLE CHECKER, lab, RT, psych nurse, 7th grade social studies teacher, clinic administrator, teacher, field crop technical officer, protective services case worker)? Give summary @ -No Was smoking cessation discussed for >3mins.? @ -No Was critical care preformed (if so, how long)? @ -No Were there social determinants of health that impacted care today? How? (Homelessness, low income, unemployed, alcoholism, drug addiction, transportation, low edu. Level, literacy, decrease access to med. care, correction, rehab)? @ -No Was there de-escalation of care discussed even if they declined (Discuss DNR or withdrawal of care, Hospice)? DNR status @ -No What co-morbidities impacted this encounter? (DM, HTN, Smoking, COPD, CAD, Cancer, CVA, ARF, Chemo, Hep., AIDS, mental health diagnosis, sleep apnea, morbid obesity)? @ -None Was patient admitted / discharged? Hospital course, mention meds given and route, prescriptions, significant lab abnormalities, going to OR and other pertinent info. @ -Discharge. 38-year-old female presented to the ER with chief complaint of rectal bleeding. History and physical exam completed. Vitals stable. Patient in no signs of acute distress and nontoxic-appearing. Rectal exam significant for multiple anal skin tags. No fissures present on exam. Labs obtained unimpressive. Mild increase in amylase and lipase likely due to recent cholecystectomy and alcohol consumption. Results discussed with patient, all questions answered. Advised to follow-up with GI, referral given. Return parameters discussed. Patient discharged in stable condition with follow-up to PCP/GI. Patient verbally expressed understanding and agreement with care plan. Case discussed with ED attending, Dr. Dowling. Undiagnosed new problem with uncertain prognosis? @ -No Drug Therapy requiring intensive monitoring for toxicity (Heparin, Nitro, Insulin, Cardizem)? @ -No Were any procedures done? @ -No Diagnosis/symptom? @ -Rectal bleeding Acute, or Chronic, or Acute on Chronic? @ -Acute. Uncomplicated (without systemic symptoms) or Complicated (systemic symptoms)? @ -Uncomplicated Side effects of treatment? @ -No Exacerbation, Progression, or Severe Exacerbation? @ -No Poses a threat to life or bodily function? How? (Chest pain, [place], [place], pneumonia, PE, COPD, DKA, ARF, appy, cholecystitis, CVA, Diverticulitis, Homicidal, Suicidal, threat to staff... and all critical care pts) @ -No - Lab Data Result diagrams: 02/11/24 09:15 02/11/24 09:15 Lab Results 02/11/24 02/11/24 02/11/24 Range/Units 09:15 09:15 09:15 WBC 6.1 (3.8-10.6) k/uL RBC 3.91 (3.80-5.40) m/uL Hgb 12.7 (11.4-16.0) gm/dL Hct 39.7 (34.0-46.0) % MCV 101.6 H (80.0-100.0) fL MCH 32.5 (25.0-35.0) pg MCHC 32.0 (31.0-37.0) g/dL RDW 12.2 (11.5-15.5) % Plt Count 348 (150-450) k/uL MPV 7.1 PT 9.8 L (10.0-12.5) sec INR 0.9 (<1.2) APTT 24.8 (22.0-30.0) sec Sodium 139 (137-145) mmol/L Potassium 4.1 (3.5-5.1) mmol/L Chloride 106 (98-107) mmol/L Carbon Dioxide 28 (22-30) mmol/L Anion Gap 5 mmol/L BUN 10 (7-17) mg/dL Creatinine 0.61 (0.52-1.04) mg/dL Est GFR (CKD-EPI)AfAm >90 (>60 ml/min/1.73 sqM) Est GFR (CKD-EPI)NonAf >90 (>60 ml/min/1.73 sqM) Glucose 101 H (74-99) mg/dL Plasma Lactic Acid Saurabh (0.7-2.0) mmol/L Calcium 8.6 (8.4-10.2) mg/dL Total Bilirubin 0.3 (0.2-1.3) mg/dL AST 19 (14-36) U/L ALT 13 (4-34) U/L Alkaline Phosphatase 55 (38-126) U/L Total Protein 6.6 (6.3-8.2) g/dL Albumin 4.0 (3.5-5.0) g/dL Amylase 154 H (30-110) U/L Lipase 648 H (23-300) U/L 02/11/24 Range/Units 09:41 WBC (3.8-10.6) k/uL RBC (3.80-5.40) m/uL Hgb (11.4-16.0) gm/dL Hct (34.0-46.0) % MCV (80.0-100.0) fL MCH (25.0-35.0) pg MCHC (31.0-37.0) g/dL RDW (11.5-15.5) % Plt Count (150-450) k/uL MPV PT (10.0-12.5) sec INR (<1.2) APTT (22.0-30.0) sec Sodium (137-145) mmol/L Potassium (3.5-5.1) mmol/L Chloride (98-107) mmol/L Carbon Dioxide (22-30) mmol/L Anion Gap mmol/L BUN (7-17) mg/dL Creatinine (0.52-1.04) mg/dL Est GFR (CKD-EPI)AfAm (>60 ml/min/1.73 sqM) Est GFR (CKD-EPI)NonAf (>60 ml/min/1.73 sqM) Glucose (74-99) mg/dL Plasma Lactic Acid Saurabh 0.6 L (0.7-2.0) mmol/L Calcium (8.4-10.2) mg/dL Total Bilirubin (0.2-1.3) mg/dL AST (14-36) U/L ALT (4-34) U/L Alkaline Phosphatase (38-126) U/L Total Protein (6.3-8.2) g/dL Albumin (3.5-5.0) g/dL Amylase (30-110) U/L Lipase (23-300) U/L Disposition Clinical Impression: Rectal bleeding Disposition: HOME SELF-CARE Condition: Stable Instructions (If sedation given, give patient instructions): Gastrointestinal Bleeding (ED) Additional Instructions: Follow-up with GI, referral given. Return to the ER for any new or worsening concerns. Is patient prescribed a controlled substance at d/c from ED?: No Referrals: Edilma Vickers MD [Primary Care Provider] - 1-2 days Leny Pulliam MD [STAFF PHYSICIAN] - 1-2 days Time of Disposition: 11:06
[2024-02-11 09:52] LABS: HCT 39.7 % (34.0-46.0); HGB 12.7 gm/dL (11.4-16.0); MCH 32.5 pg (25.0-35.0); MCV 101.6 fL (80.0-100.0); Mean Platelet Volume 7.1; Platelet Count 348 k/uL (150-450); RBC 3.91 m/uL (3.80-5.40); RDW 12.2 % (11.5-15.5); WBC 6.1 k/uL (3.8-10.6)
[2024-02-11 10:10] LABS: INR 0.9 (<1.2); Partial Thromboplastin Time 24.8 sec (22.0-30.0); Prothrombin Time 9.8 sec (10.0-12.5)
[2024-02-11 10:26] LABS: ALT 13 U/L (4-34); AST 19 U/L (14-36); African American GFR (CKD) >90 (>60 ml/min/1.73 sqM); Alkaline Phosphatase 55 U/L (38-126); Amylase 154 U/L (30-110); Anion Gap 5 mmol/L; Blood Urea Nitrogen 10 mg/dL (7-17); Calcium 8.6 mg/dL (8.4-10.2); Carbon Dioxide 28 mmol/L (22-30); Chloride 106 mmol/L (98-107); Glucose 101 mg/dL (74-99); Lipase 648 U/L (23-300); Non-African American GFR(CKD) >90 (>60 ml/min/1.73 sqM); Potassium 4.1 mmol/L (3.5-5.1); Sodium 139 mmol/L (137-145); Total Bilirubin 0.3 mg/dL (0.2-1.3); Total Protein 6.6 g/dL (6.3-8.2)
[2024-02-11 11:23] VITALS: BP 96/68; PULSE 68; RESP 18; TEMP 98.4
== END 2024-02-11 11:13 | disposition home or self-care (01) ==
LOC: EC 08:09
DX: K62.5 Hemorrhage of anus and rectum (principal); F12.90 Cannabis use, unspecified, uncomplicated; Z88.5 Allergy status to narcotic agent; Z88.6 Allergy status to analgesic agent
CPT/HCPCS: 36415; 80053; 82150; 83605; 83690; 85027; 85610; 85730; 99283

== ENCOUNTER 2024-04-29 09:53 | Observation (INO) | payer OTHER ==
--- NOTE | 2024-04-29 10:33 | ED ---
Chest Pain HPI - General Chief Complaint: Chest Pain Stated Complaint: Chest Pains Time Seen by Provider: 04/29/24 10:05 Source: patient, RN notes reviewed Mode of arrival: ambulatory Limitations: no limitations - History of Present Illness Initial Comments: 38-year-old female presenting with chest tightness x 1 day. She describes the pain as a 7 out of 10 States last week she began to feel a 7/10 crushing chest pain like someone is sitting on her chest. Denies pain with inspiration, cough, URI symptoms. She has never had this before. Denies history of heart issues. She does have a history of anxiety and sometimes takes alprazolam. She states this feels different than previous anxiety attacks. Last menstrual period was April 13. Denies recent travel, recent surgeries, history of blood clots, leg swelling, estrogen replacement therapy. - Related Data Home Medications Medication Instructions Recorded Confirmed Multivitamins, Thera [Multivitamin 1 tab PO DAILY 03/14/22 04/29/24 (formulary)] ALPRAZolam [Xanax] 0.25 mg PO TID PRN 04/29/24 04/29/24 Collagen 1 cap PO DAILY 04/29/24 04/29/24 L.acidoph,Paracasei, B.lactis 1 cap PO DAILY 04/29/24 04/29/24 [Probiotic] Methylphenidate HCl 20 mg PO DAILY 04/29/24 04/29/24 [Methylphenidate HCl ER] Prasterone (Dhea) [Dhea] 25 mg PO DAILY 04/29/24 04/29/24 Super Enzymes 1 cap PO DAILY 04/29/24 04/29/24 Thyroid,Pork [Respiratory Assistant Thyroid] 60 mg PO DAILY 04/29/24 04/29/24 Venlafaxine HCl [Effexor XR] 225 mg PO DAILY 04/29/24 04/29/24 buPROPion XL [Wellbutrin XL] 300 mg PO DAILY 04/29/24 04/29/24 Allergies Allergy/AdvReac Type Severity Reaction Status Date / Time ketorolac [From Toradol] Allergy Rash/Hives Verified 04/29/24 11:01 tramadol Allergy Rash/Hives Verified 04/29/24 11:01 Review of Systems ROS Statement: Those systems with pertinent positive or pertinent negative responses have been documented in the HPI. ROS Other: All systems not noted in ROS Statement are negative. EKG Findings - EKG Results: EKG: interpreted by ERMD (EKG reveals normal sinus rhythm with no ST changes. Ventricular rate is 95 bpm, SC interval 124, QRS duration 93, QT/QTc 325/378.) Past Medical History Past Medical History: Thyroid Disorder Additional Past Medical History / Comment(s): herniated disc with chronic lower back pain radiating down legs, history of tingling and pain za wrists and hands (resolved), hives. pancreatitis History of Any Multi-Drug Resistant Organisms: None Reported Past Surgical History: Back Surgery, Cholecystectomy Additional Past Surgical History / Comment(s): spinal fusion 2020-? Past Anesthesia/Blood Transfusion Reactions: No Reported Reaction Additional Past Anesthesia/Blood Transfusion Reaction / Comment(s): Patient has never had a transfusion or anesthesia. Past Psychological History: Anxiety, Depression Smoking Status: Never smoker Past Alcohol Use History: Occasional Past Drug Use History: Marijuana - Past Family History Father Family Medical History: Asthma, Hypertension Additional Family Medical History / Comment(s): back issues with sciatica and herniated discs Mother History Unknown: Yes Brother(s) Additional Family Medical History / Comment(s): crohns, borderline diabetic Sister(s) Family Medical History: No Reported History Son(s) Family Medical History: No Reported History General Exam Limitations: no limitations General appearance: alert, in no apparent distress, anxious Head exam: Present: atraumatic, normocephalic, normal inspection Eye exam: Present: normal appearance, PERRL, EOMI. Absent: scleral icterus, conjunctival injection, periorbital swelling ENT exam: Present: normal exam, mucous membranes moist Neck exam: Present: normal inspection. Absent: tenderness, meningismus, lymphadenopathy Respiratory exam: Present: normal lung sounds bilaterally. Absent: respiratory distress, wheezes, rales, rhonchi, stridor Cardiovascular Exam: Present: regular rate, normal rhythm, normal heart sounds. Absent: systolic murmur, diastolic murmur, rubs, gallop, clicks GI/Abdominal exam: Present: soft, normal bowel sounds. Absent: distended, tenderness, guarding, rebound, rigid By manual exam: Present: other (No skin changes over right breast. Mild tenderness to palpation over 1 x 1 cm mass present in right upper quadrant of right breast.) Extremities exam: Present: normal inspection, full ROM, normal capillary refill. Absent: tenderness, pedal edema, joint swelling, calf tenderness Neurological exam: Present: alert, oriented X3, CN II-XII intact Psychiatric exam: Present: normal affect, normal mood, anxious Skin exam: Present: warm, dry, intact, normal color. Absent: rash Course Vital Signs 04/29/24 04/29/24 09:59 11:22 Temperature 98 F Pulse Rate 121 H 99 Respiratory 20 16 Rate Blood Pressure 114/74 112/82 O2 Sat by Pulse 96 99 Oximetry Chest Pain MDM - MDM Was pt. sent in by a medical professional or institution (, [place], [facility], urgent care, hospital, or long-term...) When possible be specific @ -No Did you speak to anyone other than the patient for history (EMS, parent, family, police, friend...)? What history was obtained from this source @ -No Did you review nursing and triage notes (agree or disagree)? Why? @ -I reviewed and agree with nursing and triage notes Were old charts reviewed (outside hosp., previous admission, EMS record, old EKG, old radiological studies, urgent care reports/EKG's, long-term records)? Report findings @ -No old charts were reviewed Differential Diagnosis (chest pain, altered mental status, abdominal pain women, abdominal pain men, vaginal bleeding, weakness, fever, dyspnea, syncope, headache, dizziness, GI bleed, back pain, seizure, CVA, palpatations, mental health, musculoskeletal)? @ -Differential Chest Pain: Stable Angina, Unstable Angina, STEMI, NSTEMI Aortic Dissection, Pneumothorax, Musculoskeletal, Esophageal Spasm GERD, Cholecystitis, Pancreatitis, Zoster, this is not meant to be an all-inclusive list. EKG interpreted by me (3pts min.). @ -As above X-rays interpreted by me (1pt min.). @ -Chest x-ray reveals no acute process CT interpreted by me (1pt min.). @ -None done U/S interpreted by me (1pt. min.). @ -None done What testing was considered but not performed or refused? (CT, X-rays, U/S, labs)? Why? @ -None What meds were considered but not given or refused? Why? @ -None Did you discuss the management of the patient with other professionals (professionals i.e. , PA, [employer], lab, RT, psych nurse, manager social work, sawmill tally clerk, teacher, jail officer, counseling case manager)? Give summary @ -I spoke with Dr. Lopez from [facility] regarding this case and he agreed to accept admission at this time for ACS rule out. Was smoking cessation discussed for >3mins.? @ -No Was critical care preformed (if so, how long)? @ -No Were there social determinants of health that impacted care today? How? (Homelessness, low income, unemployed, alcoholism, drug addiction, transportation, low edu. Level, literacy, decrease access to med. care, nursing home, rehab)? @ -No Was there de-escalation of care discussed even if they declined (Discuss DNR or withdrawal of care, Hospice)? DNR status @ -No What co-morbidities impacted this encounter? (DM, HTN, Smoking, COPD, CAD, Cancer, CVA, ARF, Chemo, Hep., AIDS, mental health diagnosis, sleep apnea, morbid obesity)? @ -None Was patient admitted / discharged? Hospital course, mention meds given and route, prescriptions, significant lab abnormalities, going to OR and other pertinent info. @ -Patient was admitted. Patient was seen and evaluated for chest pain x 1 day. Patient has no history of cardiac issues. Patient is initially tachycardic at 121 bpm. Physical examination was unremarkable, pain was not reproducible upon examination. Patient was given Dilaudid for pain and Zofran for nausea. Car diac workup including CBC, CMP, troponin, magnesium, coags, D-dimer was unremarkable. Chest x-ray revealed no acute process. EKG revealed normal sinus rhythm with no ST changes. Upon reevaluation, patient continues to complain of severe chest pain. I spoke with Dr. Lopez regarding this case and he agreed to accept admission at this time for ACS rule out. Repeat troponin was ordered. Case discussed with my attending Dr. Dowling. Undiagnosed new problem with uncertain prognosis? @ -No Drug Therapy requiring intensive monitoring for toxicity (Heparin, Nitro, Insulin, Cardizem)? @ -No Were any procedures done? @ -No Diagnosis/symptom? @ -Default Acute, or Chronic, or Acute on Chronic? @ -Chest pain, rule out ACS Uncomplicated (without systemic symptoms) or Complicated (systemic symptoms)? @ -Uncomplicated Side effects of treatment? @ -No Exacerbation, Progression, or Severe Exacerbation? @ -No Poses a threat to life or bodily function? How? (Chest pain, [place], [place], pneumonia, PE, COPD, DKA, ARF, appy, cholecystitis, CVA, Diverticulitis, Homicidal, Suicidal, threat to staff... and all critical care pts) @ -Yes, chest pain Disposition Clinical Impression: Chest pain Disposition: ADMITTED IP TO THIS HOSP Referrals: Edilma Vickers MD [Primary Care Provider] - 1-2 days Time of Disposition: 15:35
[2024-04-29] MEDS: HYDROmorphone 0.5 MG/0.5 ML SYRINGE IVP STA ×2 (10:36→13:57)
[2024-04-29 10:49] LABS: Basophils # (A) 0.1 k/uL (0-0.2); Basophils % (A) 1 %; Eosinophils # (A) 0.1 k/uL (0-0.7); Eosinophils % (A) 2 %; HCT 41.3 % (34.0-46.0); HGB 13.2 gm/dL (11.4-16.0); Lymphocytes # (A) 1.4 k/uL (1.0-4.8); Lymphocytes % (A) 23 %; MCH 33.1 pg (25.0-35.0); MCV 103.6 fL (80.0-100.0); Macrocytosis Slight; Mean Platelet Volume 6.8; Monocytes # (A) 0.4 k/uL (0-1.0); Monocytes % (A) 6 %; Neutrophils # (A) 4.1 k/uL (1.3-7.7); Neutrophils % (A) 66 %; Platelet Count 367 k/uL (150-450); RBC 3.98 m/uL (3.80-5.40); RDW 12.5 % (11.5-15.5); WBC 6.2 k/uL (3.8-10.6)
[2024-04-29 10:57] LABS: ALT 14 U/L (4-34); AST 20 U/L (14-36); African American GFR (CKD) >90 (>60 ml/min/1.73 sqM); Albumin 4.3 g/dL (3.5-5.0); Alkaline Phosphatase 49 U/L (38-126); Anion Gap 8 mmol/L; Blood Urea Nitrogen 9 mg/dL (7-17); Calcium 9.6 mg/dL (8.4-10.2); Carbon Dioxide 24 mmol/L (22-30); Chloride 106 mmol/L (98-107); Glucose 77 mg/dL (74-99); Magnesium 1.7 mg/dL (1.6-2.3); Non-African American GFR(CKD) >90 (>60 ml/min/1.73 sqM); Potassium 4.2 mmol/L (3.5-5.1); Sodium 138 mmol/L (137-145); Total Bilirubin 0.4 mg/dL (0.2-1.3); Total Protein 6.5 g/dL (6.3-8.2)
[2024-04-29 11:22] LABS: INR 0.9 (<1.2); Partial Thromboplastin Time 24.5 sec (22.0-30.0); Prothrombin Time 9.9 sec (10.0-12.5)
[2024-04-29] MEDS: ONDANSETRON 4 MG/2 ML VIAL IVP STA (11:49)
--- NOTE | 2024-04-29 13:31 | XR ---
EXAMINATION TYPE: XR chest 2V DATE OF EXAM: 04/29/2024 11:58 AM CLINICAL INDICATION:Female, 38 years old with history of chest pain; [facility] COMPARISON: Chest radiographs from 09/07/2020 TECHNIQUE: XR chest 2V Frontal and lateral views of the chest. FINDINGS: Lungs/Pleura: There is no evidence of pleural effusion, focal consolidation, or pneumothorax. Pulmonary vascularity: Unremarkable. Heart/mediastinum: Cardiomediastinal silhouette is unremarkable. Musculoskeletal: No acute osseous pathology. IMPRESSION: No acute cardiopulmonary disease/process.
[2024-04-29] MEDS: LORazepam 2 MG/ML INJ IV STA (14:00)
[2024-04-29] MEDS ORDERED: NALOXONE 0.4 MG/ML 1 ML VIAL IV PRN (15:23)
[2024-04-29] MEDS ORDERED: MORPHINE SULFATE 4 MG/ML SYRINGE IV PRN (15:23)
[2024-04-29] MEDS ORDERED: ONDANSETRON 4 MG/2 ML VIAL IVP PRN (15:23)
[2024-04-30 04:07] VITALS: RESP 16
[2024-04-30 07:57] VITALS: BP 98/64; PULSE 94; TEMP 97.7
--- NOTE | 2024-04-30 09:42 | P.CRDCN ---
History of Present Illness History of present illness: HISTORY OF PRESENT ILLNESS: This is a 38-year-old female with a past medical history significant for anxiety, hypothyroidism, depression, and marijuana use. Patient does not follow with a orthotic/prosthetic clinician. We have been asked to see the patient in consultation for chest pain. Patient examined at the bedside. Patient states that yesterday morning around 9 AM she was in her car driving when she began to have pain in the middle of her chest. She also reports having palpitations but states that she thought she was having an anxiety attack so she was initially not concerned about the palpitations or the chest pain. However she states the pain persisted throughout the day and into the night. She states the pain has finally resolved this morning. She states that she is usually active and does not have any chest pain or pressure. She denies having any shortness of breath. She denies any dizziness or lightheadedness. Vital signs are stable. DIAGNOSTICS: - EKG reveals sinus mechanism with no signs of acute ischemia. - Chest xray negative for acute process. - Laboratory data: WBC 6.2. Hemoglobin 13.2. Platelet count 367. D-dimer 0.45. Sodium 138. Potassium 4.2. BUN 9. Creatinine 0.58. Magnesium 1.7. Troponin negative x 3 - Current home cardiac medications include none. - No previous echocardiogram, stress test, or cardiac catheterization available in EMR for review REVIEW OF SYSTEMS: At the time of my exam: CONSTITUTIONAL: Denies fever or chills. HEENT: Denies blurred vision, vision changes, or eye pain. Denies hemoptysis CARDIOVASCULAR: Denies chest pain. Denies orthopnea. Denies PND. Denies palpitations RESPIRATORY: Denies shortness of breath. GASTROINTESTINAL: Denies abdominal pain. Denies nausea or vomiting. HEMATOLOGIC: Denies bleeding disorders. GENITOURINARY: Denies any blood in urine. SKIN: Denies pruitis. Denies rash. PHYSICAL EXAM: VITAL SIGNS: Reviewed. GENERAL: Well-developed in no acute distress. HEENT: Head is normocephalic. Pupils are equal, round. Sclerae anicteric. Mucous membranes of the mouth are moist. Neck supple. No JVD or thyromegaly LUNGS: Respirations even and unlabored. Lungs essentially clear to auscultation bilaterally. HEART: Regular rate and rhythm. S1 and S2 heard. ABDOMEN: Soft. Nondistended. Nontender. EXTREMITIES: Normal range of motion. No clubbing or cyanosis. Peripheral pulses intact. No lower extremity edema NEUROLOGIC: Awake and alert. Oriented x 3. ASSESSMENT: Chest pain, troponin negative x 3 History of hypothyroidism History of depression History of anxiety History of marijuana use PLAN: An acute coronary event has been ruled out Obtain 2D echo to assess cardiac structure and function Patient to undergo stress echocardiogram today If negative, she may be discharged home from a cardiac standpoint Abstinence from marijuana use encouraged Further recommendations pending patient course Nurse practitioner note has been reviewed by physician. Signing provider agrees with the documented findings, assessment, and plan of care documented by ARTIFICIAL MARBLE WORKER as a scribe. Past Medical History Past Medical History: Thyroid Disorder Additional Past Medical History / Comment(s): herniated disc with chronic lower back pain radiating down legs, history of tingling and pain za wrists and hands (resolved), hives. pancreatitis History of Any Multi-Drug Resistant Organisms: None Reported Past Surgical History: Back Surgery, Cholecystectomy Additional Past Surgical History / Comment(s): spinal fusion ? Past Anesthesia/Blood Transfusion Reactions: No Reported Reaction Additional Past Anesthesia/Blood Transfusion Reaction / Comment(s): Patient has never had a transfusion or anesthesia. Past Psychological History: Anxiety, Depression Smoking Status: Never smoker Past Alcohol Use History: Occasional Past Drug Use History: Marijuana - Past Family History Father Family Medical History: Asthma, Hypertension Additional Family Medical History / Comment(s): back issues with sciatica and herniated discs Mother History Unknown: Yes Brother(s) Additional Family Medical History / Comment(s): crohns, borderline diabetic Sister(s) Family Medical History: No Reported History Son(s) Family Medical History: No Reported History Medications and Allergies Home Medications Medication Instructions Recorded Confirmed Type Multivitamins, Thera [Multivitamin 1 tab PO DAILY 03/14/22 04/29/24 History (formulary)] ALPRAZolam [Xanax] 0.25 mg PO TID PRN 04/29/24 04/29/24 History Collagen 1 cap PO DAILY 04/29/24 04/29/24 History L.acidoph,Paracasei, B.lactis 1 cap PO DAILY 04/29/24 04/29/24 History [Probiotic] Methylphenidate HCl 20 mg PO DAILY 04/29/24 04/29/24 History [Methylphenidate HCl ER] Prasterone (Dhea) [Dhea] 25 mg PO DAILY 04/29/24 04/29/24 History Super Enzymes 1 cap PO DAILY 04/29/24 04/29/24 History Thyroid,Pork [Director Of Advertising Sales Thyroid] 60 mg PO DAILY 04/29/24 04/29/24 History Venlafaxine HCl [Effexor XR] 225 mg PO DAILY 04/29/24 04/29/24 History buPROPion XL [Wellbutrin XL] 300 mg PO DAILY 04/29/24 04/29/24 History Allergies Allergy/AdvReac Type Severity Reaction Status Date / Time ketorolac [From Toradol] Allergy Rash/Hives Verified 04/29/24 11:01 tramadol Allergy Rash/Hives Verified 04/29/24 11:01 Physical Exam Vitals: Vital Signs Temp Pulse Pulse Resp BP BP Pulse Ox 04/30/24 07:05 97.7 F 94 16 98/64 98 04/30/24 03:13 98.6 F 77 16 116/77 97 04/29/24 20:00 17 04/29/24 18:16 98.2 F 102 H 17 109/75 97 04/29/24 16:00 94 16 99/69 96 04/29/24 11:22 99 16 112/82 99 04/29/24 09:59 98 F 121 H 20 114/74 96 Intake and Output 04/29/24 04/30/24 04/30/24 22:59 06:59 14:59 Intake Total 222 Balance 222 Intake: Oral 222 Other: # Voids 1 Weight 65.771 kg Results 04/29/24 10:29 04/29/24 10:29 Cardiac Enzymes 04/29/24 04/29/24 04/29/24 Range/Units 10:29 10:29 16:12 AST 20 (14-36) U/L Troponin I <0.012 <0.012 (0.000-0.034) ng/mL 04/29/24 Range/Units 18:10 AST (14-36) U/L Troponin I <0.012 (0.000-0.034) ng/mL Coagulation 04/29/24 Range/Units 10:29 PT 9.9 L (10.0-12.5) sec APTT 24.5 (22.0-30.0) sec CBC 04/29/24 Range/Units 10:29 WBC 6.2 (3.8-10.6) k/uL RBC 3.98 (3.80-5.40) m/uL Hgb 13.2 (11.4-16.0) gm/dL Hct 41.3 (34.0-46.0) % Plt Count 367 (150-450) k/uL Comprehensive Metabolic Panel 04/29/24 Range/Units 10:29 Sodium 138 (137-145) mmol/L Potassium 4.2 (3.5-5.1) mmol/L Chloride 106 (98-107) mmol/L Carbon Dioxide 24 (22-30) mmol/L BUN 9 (7-17) mg/dL Creatinine 0.58 (0.52-1.04) mg/dL Glucose 77 (74-99) mg/dL Calcium 9.6 (8.4-10.2) mg/dL AST 20 (14-36) U/L ALT 14 (4-34) U/L Alkaline Phosphatase 49 (38-126) U/L Total Protein 6.5 (6.3-8.2) g/dL Albumin 4.3 (3.5-5.0) g/dL Current Medications Generic Name Dose Route Start Last Admin Trade Name Josq PRN Reason Stop Dose Admin Morphine Sulfate 4 mg 04/29/24 15:23 Morphine Sulfate 4 Mg/Ml Syringe IV Q4HR PRN Severe Pain (Scale 7 to 10) Naloxone HCl 0.2 mg 04/29/24 15:23 Naloxone 0.4 Mg/Ml 1 Ml Vial IV Q2M PRN Opioid Reversal Ondansetron HCl 4 mg 04/29/24 15:23 Ondansetron 4 Mg/2 Ml Vial IVP Q8HR PRN Nausea And Vomiting Intake and Output 04/29/24 04/30/24 04/30/24 22:59 06:59 14:59 Intake Total 222 Balance 222 Intake: Oral 222 Other: # Voids 1 Weight 65.771 kg 04/29/24 10:29 04/29/24 10:29
--- NOTE | 2024-04-30 13:26 | CA ---
Stress Echo Report Khai Lopez Age: 38 Gender: F : 1985 Exam Date: 04/30/2024 10:38 Exam Location: [facility] Stress Ht (in): 63 Wt (lb): 143 Ordering Physician: Hanna Zhao Referring Physician: [id number] Can Intake Worker: Helio Nolan Technologist Procedure CPT: Indication: CP ICD-9 Codes: Rhythm: Patient History: Cardiac Medications: see chart Medications in past 24 hours: Contrast: N/A Stress Results Protocol: Dewayne Total dose(mL): NA Exercise Duration (min:sec): 11:[address] Depression (mm): Angina Score: Jarvis Score: METS: 12.1 Resting HR: 92 Resting BP: 102 / 74 Peak HR: 165 Peak BP: 134 / 81 Max Predicted HR: 180 92 % Max Predicted HR Target HR: 153 Double Product: [id number] Stress Summary: The patient's target heart rate was achieved BP Response: Reason for Termination: Reached target heart rate or work-load Cardiac Symptoms: NO SYMPTOMS ECG Analysis Resting ECG: Normal sinus rhythm, normal ECG Stress ECG: No abnormal ST/T wave changes with exercise Arrhythmia: None Echo Analysis Resting Echo: Normal resting echocardiogram. Peak Echo Analysis: Normal wall thickening and motion MEASUREMENTS (Male/Female) Normal Values CONCLUSIONS 1. Good exercise tolerance with normal electrocardiographic response to exercise 2. Normal stress echocardiogram with no evidence of stress induced ischemia Dr. Lars Post MD (Electronically Signed) Final Date: 30 April 2024 13:25
--- NOTE | 2024-04-30 13:38 | CA ---
Transthoracic Echo Report Name: Khai Lopez Age: 38 Gender: F : 1985 Exam Date: 04/30/2024 08:53 Exam Location: [facility] Echo Ht (in): 63 Wt (lb): 145 Ordering Physician: Hanna Zhao Attending/Referring Phys: [id number], Cece Project Mgr Lynnette Jones RDCS Procedure CPT: Indications: CP Cardiac Hx: Technical Quality: Good Contrast 1: Total Dose (mL): Contrast 2: Total Dose (mL): MEASUREMENTS (Male / Female) Normal Values 2D ECHO LV Diastolic Diameter PLAX 4.5 cm 4.2 - 5.9 / 3.9 - 5.3 cm LV Systolic Diameter PLAX 3.2 cm IVS Diastolic Thickness 1.0 cm 0.6 - 1.0 / 0.6 - 0.9 cm LVPW Diastolic Thickness 0.8 cm 0.6 - 1.0 / 0.6 - 0.9 cm LV Relative Wall Thickness 0.4 RV Internal Dim ED PLAX 2.9 cm LVOT Diameter 2.2 cm LV Diastolic Volume MOD BP 91.4 cm??? 67 - 155 / 56 - 104 cm??? LV Systolic Volume MOD BP 29.5 cm??? 22 - 58 / 19 - 49 cm??? LV Ejection Fraction MOD BP 67.7 % >= 55 % LV Cardiac Index MOD BP 2585.9 cm???/min???m??? LV Diastolic Volume MOD 4C 94.0 cm??? LV Systolic Volume MOD 4C 32.0 cm??? LV Ejection Fraction MOD 4C 66.0 % LV Cardiac Index MOD 4C 2589.4 cm???/min???m??? LV Diastolic Length 4C 8.6 cm LV Systolic Length 4C 7.1 cm LV Diastolic Volume MOD 2C 88.2 cm??? LV Systolic Volume MOD 2C 26.1 cm??? LV Ejection Fraction MOD 2C 70.4 % LV Cardiac Index MOD 2C 2594.4 cm???/min???m??? LV Diastolic Length 2C 8.5 cm LV Systolic Length 2C 6.7 cm LA Volume 27.1 cm??? 18 - 58 / 22 - 52 cm??? LA Volume Index 15.7 cm???/m??? 16 - 28 cm???/m??? Ascending Aorta Diameter 2.7 cm DOPPLER AV Peak Velocity 111.7 cm/s AV Peak Gradient 5.0 mmHg AV Mean Velocity 74.5 cm/s AV Mean Gradient 2.5 mmHg AV Velocity Time Integral 20.7 cm LVOT Peak Velocity 77.2 cm/s LVOT Peak Gradient 2.4 mmHg LVOT Velocity Time Integral 14.9 cm LVOT Stroke Volume 58.5 cm??? LVOT Stroke Volume Index 34.7 ml/m??? LVOT Cardiac Index 2444.3 cm???/min???m??? AV Area Cont Eq vti 2.8 cm??? AV Area Cont Eq pk 2.7 cm??? MV Area PHT 5.1 cm??? Mitral E Point Velocity 72.0 cm/s Mitral A Point Velocity 49.1 cm/s Mitral E to A Ratio 1.5 MV Deceleration Time 147.5 ms PV Peak Velocity 67.9 cm/s PV Peak Gradient 1.8 mmHg FINDINGS Left Ventricle Left ventricular ejection fraction is estimated at 50-60 %. Mildly increased septal wall thickness. Left ventricular cavity size normal. No obvious regional wall motion abnormalities. Right Ventricle Normal right ventricular size and function. Unable to estimate the right ventricular systolic pressure. Right Atrium Normal right atrial size. Left Atrium Normal left atrial size. Mitral Valve Structurally normal mitral valve. No mitral stenosis, regurgitation or prolapse. Aortic Valve Trileaflet aortic valve . No aortic valve stenosis or regurgitation. Tricuspid Valve Structurally normal tricuspid valve. No tricuspid stenosis. Trace tricuspid regurgitation. Pulmonic Valve Structurally normal pulmonic valve. No pulmonic stenosis. No pulmonic regurgitation. Pericardium No pericardial effusion. Aorta Normal size aortic root and proximal ascending aorta. CONCLUSIONS 1. Normal left ventricle size and systolic function 2. No significant valvular abnormalities Previewed by: Dr. Lars Post MD (Electronically Signed) Final Date: 30 April 2024 13:37
--- NOTE | 2024-05-01 06:23 | P.HPIM ---
History of Present Illness Please consider this note as combined H&P and discharge summary Diagnoses: Chest pain, musculoskeletal. Resolved. Cardiac and pulmonary causes ruled out Hypothyroidism Chronic low back pain, currently not an active issue Anxiety and depression, not an active issue Hospital course: This is a pleasant 38 years old female with past medical history of anxiety, depression hypothyroidism and back pain status post back surgery Presents because of chest pain mild to moderate which started of 1 day duration Is on the left side nonradiating, and now completely resolved at 0/10 With no associated dyspnea dizziness or coughing. 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 For discharge Problems and management plan were discussed with the patient and he verbalized understanding and acceptance Patient was found stable and can be discharged home in guarded prognosis however he needs follow-up as an outpatient. Patient was instructed to follow up with PCP within one week and patient agrees Physical exam Gen: patient is a AAOx3, no distress CVS: S1-S2, RRR, no murmur Lungs: B/L CTA, no wheezing Abdomen: soft, no distention, no tenderness, positive bowel sounds Extremity: no leg edema or induration Time spent more than 35 minutes Review of Systems Review of systems CONSTITUTIONAL: No fever, no malaise, no fatigue. HEENT: No recent visual problems or hearing problems. Denied any sore throat. CARDIOVASCULAR: No orthopnea, PND, no palpitations, no syncope. PULMONARY: No shortness of breath, no cough, no hemoptysis. GASTROINTESTINAL: No diarrhea, no nausea, no vomiting, no abdominal pain. N ormoactive bowel sounds. NEUROLOGICAL: No headaches, no weakness, no numbness. HEMATOLOGICAL: Denies any bleeding or petechiae. GENITOURINARY: Denies any burning micturition, frequency, or urgency. MUSCULOSKELETAL/RHEUMATOLOGICAL: Denies any joint pain, swelling, or any muscle pain. ENDOCRINE: Denies any polyuria or polydipsia. Past Medical History Past Medical History: Thyroid Disorder Additional Past Medical History / Comment(s): herniated disc with chronic lower back pain radiating down legs, history of tingling and pain za wrists and hands (resolved), hives. pancreatitis History of Any Multi-Drug Resistant Organisms: None Reported Past Surgical History: Back Surgery, Cholecystectomy Additional Past Surgical History / Comment(s): spinal fusion ? Past Anesthesia/Blood Transfusion Reactions: No Reported Reaction Additional Past Anesthesia/Blood Transfusion Reaction / Comment(s): Patient has never had a transfusion or anesthesia. Past Psychological History: Anxiety, Depression Smoking Status: Never smoker Past Alcohol Use History: Occasional Past Drug Use History: Marijuana - Past Family History Father Family Medical History: Asthma, Hypertension Additional Family Medical History / Comment(s): back issues with sciatica and herniated discs Mother History Unknown: Yes Brother(s) Additional Family Medical History / Comment(s): crohns, borderline diabetic Sister(s) Family Medical History: No Reported History Son(s) Family Medical History: No Reported History Medications and Allergies Home Medications Medication Instructions Recorded Confirmed Type Multivitamins, Thera [Multivitamin 1 tab PO DAILY 03/14/22 04/29/24 History (formulary)] ALPRAZolam [Xanax] 0.25 mg PO TID PRN 04/29/24 04/29/24 History Collagen 1 cap PO DAILY 04/29/24 04/29/24 History L.acidoph,Paracasei, B.lactis 1 cap PO DAILY 04/29/24 04/29/24 History [Probiotic] Methylphenidate HCl 20 mg PO DAILY 04/29/24 04/29/24 History [Methylphenidate HCl ER] Prasterone (Dhea) [Dhea] 25 mg PO DAILY 04/29/24 04/29/24 History Super Enzymes 1 cap PO DAILY 04/29/24 04/29/24 History Thyroid,Pork [Pig Conveyor Operator Thyroid] 60 mg PO DAILY 04/29/24 04/29/24 History Venlafaxine HCl [Effexor XR] 225 mg PO DAILY 04/29/24 04/29/24 History buPROPion XL [Wellbutrin XL] 300 mg PO DAILY 04/29/24 04/29/24 History Allergies Allergy/AdvReac Type Severity Reaction Status Date / Time ketorolac [From Toradol] Allergy Rash/Hives Verified 04/29/24 11:01 tramadol Allergy Rash/Hives Verified 04/29/24 11:01 Physical Exam Vitals: Vital Signs Temp Pulse Pulse Resp BP BP Pulse Ox 04/30/24 07:05 97.7 F 94 16 98/64 98 04/30/24 03:13 98.6 F 77 16 116/77 97 04/29/24 20:00 17 04/29/24 18:16 98.2 F 102 H 17 109/75 97 04/29/24 16:00 94 16 99/69 96 Intake and Output 04/29/24 04/30/24 04/30/24 22:59 06:59 14:59 Intake Total 222 Balance 222 Intake: Oral 222 Other: # Voids 1 Weight 65.771 kg GENERAL: The patient is alert and oriented x3, not in any acute distress. Well developed, well nourished. HEENT: Pupils are round and equally reacting to light. EOMI. No scleral icterus. No conjunctival pallor. Normocephalic, atraumatic. No pharyngeal erythema. No thyromegaly. CARDIOVASCULAR: S1 and S2 present. No murmurs, rubs, or gallops. PULMONARY: Chest is clear to auscultation, no wheezing , no crackles. ABDOMEN: Soft, nontender, nondistended, normoactive bowel sounds. No palpable organomegaly. MUSCULOSKELETAL: No joint swelling or deformity. EXTREMITIES: No cyanosis, clubbing, or pedal edema. NEUROLOGICAL: Gross neurological examination did not reveal any focal deficits. SKIN: No rashes. no petechiae. Results CBC & Chem 7: 04/29/24 10:29 04/29/24 10:29 Thrombosis Risk Factor Assmnt - Choose All That Apply Any of the Below Risk Factors Present?: No Other Risk Factors: No Other congenital or acquired thrombophilia - If yes, enter type in comment: No Thrombosis Risk Factor Assessment Level: Very Low Risk
== END 2024-04-30 14:00 | disposition home or self-care (01) ==
LOC: EC 09:53 → 6NMEDSUR 16:08
PROVIDERS: ADMIT Internal Medicine; ATTEND Internal Medicine
DX: R07.89 Other chest pain (principal); F41.9 Anxiety disorder, unspecified; F32.A Depression, unspecified; E03.9 Hypothyroidism, unspecified; F12.90 Cannabis use, unspecified, uncomplicated; G89.29 Other chronic pain; M54.50 Low back pain, unspecified; Z79.890 Hormone replacement therapy; Z79.899 Other long term (current) drug therapy; Z88.5 Allergy status to narcotic agent; Z88.1 Allergy status to other antibiotic agents
CPT/HCPCS: 96376; 96374; 96375; 99285; 36415; 93005; 93306; 93351; 85379; 80053; 83735; 84484; 85025; 85610; 85730; 81025; 71046; G0378 ×2; J2060; J2405; J1170

== ENCOUNTER → 2024-05-15 | Outpatient (CLI) | payer OTHER ==
--- NOTE | 2024-05-15 08:12 | MM ---
Reason for Exam: Clinical finding. Last mammogram was performed 1 year(s) and 6 month(s) ago. Patient History: Menarche at age 11. First Full-Term at age 20. Maternal grandmother had breast cancer. Risk Values: Sherry 5 year model risk: 0.5%. NCI Lifetime model risk: 9.0%. Tissue Density: The breasts are extremely dense, which lowers the sensitivity of mammography. Findings: Analyzed By CAD. The pattern is symmetrical. No suspicious interval change is evident. No suspicious mammographic abnormality 11:00 right breast correlating with the patient's area of pain. Ultrasound is recommended for additional evaluation. No suspicious groups of microcalcifications, spiculated or lobular masses, architectural distortion or other secondary signs of malignancy are mammographically apparent. Overall Assessment: Incomplete: need additional imaging evaluation, BI-RAD 0 Management: Diagnostic Breast Ultrasound of the right breast. A negative mammogram report should not preclude additional follow up of suspicious palpable abnormalities. Patient should continue monthly self breast exam. A clinical breast exam by your physician is recommended on an annual basis and results should be correlated with mammographic findings. Note on Sherry scores and lifetime risk: 1. A Sherry score greater than 3% is considered moderate risk. If this is the case, consider specialist referral to assess eligibility for a risk reducing agent. 2. If overall lifetime risk for the development of breast cancer is 20% or higher, the patient may qualify for future screening with alternating mammogram and breast MRI. Electronically signed and approved by: Carlos Pavon D.O. Radiologis
--- NOTE | 2024-05-15 08:43 | USB ---
Reason for Exam: Clinical finding. Patient History: Menarche at age 11. First Full-Term at age 20. Premenopausal. Hormonal Contraceptives, from age 12 until age 19. Maternal grandmother had breast cancer. Risk Values: Sherry 5 year model risk: 0.5%. NCI Lifetime model risk: 9.0%. Technique: Method: Targeted. Prior Study Comparison: 11/14/2022 Bilateral MG screening mammo w CAD, [facility]. Findings: The upper outer quadrant of the right breast, the axilla of the right breast and the retroareolar of the right breast were scanned. Targeted ultrasound upper outer quadrant right breast 9:00 to 12:00 including scanning of the subareolar region and axilla. There is dense tissue present throughout. At the 9:00 position, 10 cm from the nipple, there is a 7 x 4 x 6 mm complex cyst versus cyst cluster. This can be reassessed at follow-up. At the 9:00 position, 5 cm from the nipple, suspected tiny 5 mm cyst. At the 11:00 position, 3 cm from the nipple, there is a benign-appearing 6 cm cyst. At the 12:00 position, 6 cm from the nipple, there is a lobulated complex cyst versus cyst cluster measuring 5 x 5 x 4 mm. This can be reassessed at follow-up. No other solid or cystic lesion or axillary lymphadenopathy. Overall Assessment: Probably benign, BI-RAD 3 Management: Diagnostic Breast Ultrasound of the right breast in 6 months. For suspected benign cyst clusters 9:00 and 12:00 position. A clinical breast exam by your physician is recommended on an annual basis and results should be correlated with mammographic findings. This exam should not preclude additional follow-up of suspicious palpable abnormalities. Results were given to the patient verbally at the time of exam. Electronically signed and approved by: Surinder Carpio M.D. Radiologist
== END | disposition home or self-care (01) ==
LOC: RADMAMWWP 07:26
PROVIDERS: ATTEND Family Medicine
DX: R92.343 Mammographic extreme density, bilateral breasts (principal); N64.4 Mastodynia; Z80.3 Family history of malignant neoplasm of breast
CPT/HCPCS: 77066; 76642; G0279; 77062

== ENCOUNTER → 2024-06-05 | Outpatient (CLI) | payer OTHER ==
--- NOTE | 2024-07-15 12:13 | CONS ---
CONSULTATION REASON FOR CONSULTATION: A 38-year-old lady has been evaluated in [facility] for awakenings from sleep and sleepiness. HISTORY OF PRESENT ILLNESS: Sleep-wake evaluation. The patient's usual sleep schedule from 8:30 p.m. to 10:00 p.m. until 5:00 a.m. 7 days a week. Sometimes, the patient has problems with falling asleep. During the sleep, the patient snores, wakes up 2 times with nocturia and positive history of panic attacks, positive history of restless legs, sleep talking, sweating. In the morning, the patient feels tiredness, sleepiness. Porter Sleepiness Scale increased to 10. The patient takes one nap at noon. PAST MEDICAL HISTORY: Right shoulder arthritis, depression, anxiety, ADHD, hypothyroidism. MEDICATIONS: 1. FIELDWORK COORDINATOR Thyroid 60 mg once a day. 2. Venlafaxine extended release once a day. 3. Methylphenidate 20 mg once a day. 4. Bupropion 300 mg once a day. 5. Alprazolam 0.25 mg as needed. 6. Hydroxyzine 50 mg as needed. PAST SURGICAL HISTORY: Back surgery, cholecystectomy. SOCIAL HISTORY: Positive history of smoking. Alcohol consumption, occasional. FAMILY HISTORY: Hypertension, snoring, cancer, heart problems. REVIEW OF SYSTEMS: Awakenings from sleep, sleepiness. No seizures. No pain in the belly. No chest pain. No blood in the stool or urine. No cough. PHYSICAL EXAMINATION: GENERAL: The patient is in no distress. VITAL SIGNS: BP 124/82, HR 69, RR 16, oxygen saturation on room air 97%, weight 140 pounds, body mass index 44.6, temperature 98.1. HEENT: PERRLA, EOMI, extremely low position of soft palate, Mallampati 4 , retrognathia 2 mm. NECK: Supple. No JVD. 13 inches in circumference. LUNGS: Clear. HEART: S1, S2 regular, no murmur, gallop, or rub. ABDOMEN: Soft, nontender. EXTREMITIES: No edema. UNDERLINER: No focal deficit. IMPRESSION: 1. Snoring, awakenings from sleep, extremely low position of soft palate, Mallampati 4, sleepiness. Obstructive sleep apnea-hypopnea syndrome. 2. History of depression. 3. History of anxiety. 4. History of attention deficit hyperactivity disorder. 5. Hypothyroidism. 6. Status post back surgery. PLAN: 1. Polysomnography for evaluation of patient breathing during sleep. 2. Following plan after reading sleep study. 3. Sleep hygiene with time in bed for at least 7-1/2 to 8 hours. 4. No driving if feeling sleepiness. Thank you very much for referring this patient for consultation. MMODL / IJN: [id number] / [id number]
== END ==
LOC: 3 N SLEEP 13:30
PROVIDERS: ATTEND Internal Medicine
CPT/HCPCS: 99211